=== PATIENT | female | born 1990 | race American Indian/Alaskan Native ===

== ENCOUNTER 2016-05-29 07:36 | Emergency (ER) | payer OTHER ==
[2016-05-29] MEDS ORDERED: PEPCID PO ONE (10:35)
[2016-05-29] MEDS ORDERED: BENADRYL PO ONE (10:35)
[2016-05-29] MEDS ORDERED: DELTASONE PO ONE (10:35)
--- NOTE | 2016-05-29 10:35 | Emergency Department Report ---
HPI - General Chief Complaint: Allergic Reaction Time Seen by Provider: 05/29/16 10:26 - HPI HPI: 25-year-old -[place] female comes in with complaint of facial swelling and hives off and on times a couple of months. Patient questions if she has possible allergic reaction. She has been seen now the allergists with no resolution. She complains of mild swelling to the left lower side of her face. She reports that she's been on prednisone and Benadryl Pepcid. She reports that the prednisone helps with the swelling but a few days after she completes the Medrol Dosepak the swelling comes back. She reports that the allergists recommends for her to have a skin test to see what she is actually allergic to. Patient reports she is not able to afford to $1600 fee for what the tests. She denies any wheezing or shortness of breath no fever no chills no nausea no vomiting. ED Past Medical Hx - Past Medical History Hx Arthritis: (bronchitis) Additional medical history: Fibroids in B breasts. BRONCHITIS - Social History Smoking Status: Current Every Day Smoker Substance Use Type: Alcohol - Medications Home Medications: Home Medications Medication Instructions Recorded Confirmed Last Taken Type Ibuprofen [Motrin 800 MG tab] 800 mg PO Q8H PRN #30 tablet 08/05/14 08/25/14 Unknown Rx Albuterol Sulfate [Ventolin HFA] 2 puff IH Q4H PRN #1 hfa.aer.ad 08/25/14 Unknown Rx Azithromycin [Zithromax Z-TINO] 250 mg PO DAILY #6 tablet 08/25/14 Unknown Rx Ibuprofen [Motrin 600 MG tab] 600 mg PO Q8H PRN #21 tablet 08/25/14 Unknown Rx Ondansetron [Zofran Odt] 4 mg PO Q8HR #12 tab.rapdis 08/25/14 Unknown Rx Prednisone [Prednisone 5 mg (6-Day 5 mg PO .TAPER #1 tab.ds.pk 08/25/14 Unknown Rx Pack, 21 Tabs)] Cephalexin [Keflex] 500 mg PO Q8HR #30 cap 01/10/15 Unknown Rx traMADol [Ultram 50 MG tab] 50 mg PO Q6HR PRN #14 tablet 01/10/15 Unknown Rx Azithromycin [Zithromax Z-TINO] 0 mg PO DAILY #6 tab 07/04/15 Unknown Rx Benzonatate [Tessalon Perles] 100 mg PO Q8HR #30 capsule 07/04/15 Unknown Rx Promethazine [Phenergan TAB] 25 mg PO Q6HR PRN #20 tab 07/04/15 Unknown Rx Promethazine [Phenergan] 25 mg ME Q6HR PRN #10 supp.rect 07/04/15 Unknown Rx oxyCODONE /ACETAMINOPHEN [Percocet 1 - 2 tab PO Q6HR PRN #14 tablet 07/04/15 Unknown Rx 5/325] Famotidine [Pepcid] 20 mg PO BID #20 tablet 03/14/16 Unknown Rx methylPREDNISolone [Medrol] 4 mg PO DAILY #1 tab.ds.pk 03/14/16 Unknown Rx Fexofenadine/Pseudoephedrine 1 each PO QDAY #30 tab.er.24h 05/29/16 Unknown Rx [Cecy-D 24 Hour Tablet] diphenhydrAMINE [Benadryl CAP] 25 mg PO Q6HR PRN #20 capsule 05/29/16 Unknown Rx predniSONE [Deltasone] 20 mg PO QDAY #4 tab 05/29/16 Unknown Rx ED Review of Systems ROS: Stated complaint: ALLERGIC REACTION/FACIAL SWELLING/RT HAND NUMB Other details as noted in HPI Constitutional: denies: chills, fever Eyes: denies: eye pain, eye discharge, vision change ENT: other (facial swelling mainly to the left lower jaw). denies: ear pain, throat pain Respiratory: denies: cough Cardiovascular: as per HPI Physical Exam - Physical Exam Vital Signs: Vital Signs 05/29/16 08:24 Temperature 98.3 F Pulse Rate 84 Respiratory 18 Rate Blood Pressure 125/83 O2 Sat by Pulse 100 Oximetry Physical Exam: GENERAL: Alert and oriented x3, no apparent distress, Normal Gait, atraumatic. HEAD: Head is normocephalic and a-traumatic. EYES: Extra ocular muscles are intact. Pupils are equal, round, and reactive to light and accommodation. EARS: symetrical, atraumatic, non tender, ear canal clear and moderate cerumen, tympanic membrance non inflamed. gross auditory nml bilaterally. NOSE: Nose symetrical, Nontender,Nares appeared normal. MOUTH:Mouth is well hydrated and without lesions. Tonsils swollen, Uvula midline, Tongue not elevated. Mucous membranes are moist. Posterior pharynx clear, no exudate or lesions. Patent airways. FACE: Mild edema just to the left lower jaw nonerythematous no open wounds, nontender to palpate NECK: Supple. Non edematous, No carotid bruits. No lymphadenopathy or thyromegaly. LUNGS: Symetrical with respiration, No wheezing, no rales or crackles, CTAB. HEART: S1, S2 present, regular rate and rhythm without murmur, no rubs, no gallops. EXTREMITIES/MUSCULOSKELETAL: No cyanosis, clubbing, rash, lesions or edema. Full ROM bilaterally. UE/LE Pulses 2+ bilaterally. LE and UE 5+ strength bilaterally PSYCHIATRIC: Mood is congruent with affect, denies suicidal or homicidal ideations. SKIN: Warm and dry, No lesions, No ulceration or induration present ED Course Vital Signs 05/29/16 08:24 Temperature 98.3 F Pulse Rate 84 Respiratory 18 Rate Blood Pressure 125/83 O2 Sat by Pulse 100 Oximetry ED Medical Decision Making - Medical Decision Making Patient's been evaluated by this provider in fast track. We will order patient Pepcid 40 mg Benadryl 25 mg and prednisone 40 mg by mouth to be given now will reevaluate the patient. Discussed with patient that is very important for her to follow up with an inspector welded parts. We'll get her out of discomfort Patient verbalized understanding of the plan. Critical care attestation.: If time is entered above; I have spent that time in minutes in the direct care of this critically ill patient, excluding procedure time. ED Disposition Clinical Impression: Allergic reaction Qualifiers: Encounter type: initial encounter Qualified Code(s): T78.40XA - Allergy, unspecified, initial encounter Disposition: DISCHARGED TO HOME OR SELFCARE Is pt being admited?: No Does the pt Need Aspirin: No Condition: Stable Instructions: Urticaria (ED), Allergies (ED) Additional Instructions: Very important for you to follow up with an inspector welded parts for further evaluation. Medications as prescribed. Prescriptions: diphenhydrAMINE [Benadryl CAP] 25 mg PO Q6HR PRN #20 capsule PRN Reason: Itching Fexofenadine/Pseudoephedrine [Cecy-D 24 Hour Tablet] 1 each PO QDAY #30 tab.er.24h predniSONE [Deltasone] 20 mg PO QDAY #4 tab Referrals: PRIMARY CARE, [Primary Care Provider] - 3-5 Days Forms: Work/School Release Form(ED)
[2016-05-29] MEDS ORDERED: DELTASONE ONE (10:43)
[2016-05-29] MEDS ORDERED: PEPCID ONE (10:44)
[2016-05-29 12:52] VITALS: BP 121/80
== END 2016-05-29 12:52 | disposition home or self-care (01) ==
LOC: ED 07:36
DX: T78.40XA Allergy, unspecified, initial encounter (principal); X58.XXXA Exposure to other specified factors, initial encounter; F17.200 Nicotine dependence, unspecified, uncomplicated; D24.9 Benign neoplasm of unspecified breast; Z88.5 Allergy status to narcotic agent
CPT/HCPCS: 99282; J7512; Q0163

== ENCOUNTER 2016-07-15 20:52 | Emergency (ER) | payer SELFPAY ==
[2016-07-15] MEDS ORDERED: BENADRYL PO ONE (21:13)
[2016-07-15] MEDS ORDERED: PEPCID PO ONE (21:13)
[2016-07-15] MEDS ORDERED: DELTASONE PO NR ×2 (21:30→22:00)
[2016-07-15 21:40] LABS: Bilirubin,Urine NEG (Negative); Blood,Urine MOD (Negative); Ketones,Urine TR mg/dL (Negative); Leukocyte Esterase,Urine NEG (Negative); Mucus,Urine FEW /HPF; Nitrite,Urine NEG (Negative); Protein,Urine <15 mg/dL mg/dL (Negative); Urobilinogen,Urine < 2.0 mg/dL (<2.0); WBC,Urine < 1.0 /HPF (0.0-6.0)
--- NOTE | 2016-07-15 23:17 | Emergency Department Report ---
HPI - General Chief Complaint: Skin Rash Time Seen by Provider: 07/15/16 22:49 - HPI HPI: She is a 25-year-old female who presents to ED complaining of generalized itching and hives that worsened last night. Patient states she has had his aching for the O while patient could not recall specific at time in but states she's had it for a while. Patient states generalized itching and hives have a burning sensation. Patient does not recall coming into contact with any object. Patient denies any allergies. Patient denies fevers/chills/nausea/vomiting/abdominal pain/chest pain/dizziness /shortness of breath/diarrhea ED Past Medical Hx - Past Medical History Previous Medical History?: No Hx Arthritis: (bronchitis) Additional medical history: Fibroids in B breasts. BRONCHITIS - Surgical History Past Surgical History?: No - Social History Smoking Status: Current Every Day Smoker Substance Use Type: Alcohol - Medications Home Medications: Home Medications Medication Instructions Recorded Confirmed Last Taken Type Ibuprofen [Motrin 800 MG tab] 800 mg PO Q8H PRN #30 tablet 08/05/14 08/25/14 Unknown Rx Albuterol Sulfate [Ventolin HFA] 2 puff IH Q4H PRN #1 hfa.aer.ad 08/25/14 Unknown Rx Azithromycin [Zithromax Z-MATT] 250 mg PO DAILY #6 tablet 08/25/14 Unknown Rx Ibuprofen [Motrin 600 MG tab] 600 mg PO Q8H PRN #21 tablet 08/25/14 Unknown Rx Ondansetron [Zofran Odt] 4 mg PO Q8HR #12 tab.rapdis 08/25/14 Unknown Rx Prednisone [Prednisone 5 mg (6-Day 5 mg PO .TAPER #1 tab.ds.pk 08/25/14 Unknown Rx Pack, 21 Tabs)] Cephalexin [Keflex] 500 mg PO Q8HR #30 cap 01/10/15 Unknown Rx traMADol [Ultram 50 MG tab] 50 mg PO Q6HR PRN #14 tablet 01/10/15 Unknown Rx Azithromycin [Zithromax Z-MATT] 0 mg PO DAILY #6 tab 07/04/15 Unknown Rx Benzonatate [Tessalon Perles] 100 mg PO Q8HR #30 capsule 07/04/15 Unknown Rx Promethazine [Phenergan TAB] 25 mg PO Q6HR PRN #20 tab 07/04/15 Unknown Rx Promethazine [Phenergan] 25 mg SD Q6HR PRN #10 supp.rect 07/04/15 Unknown Rx oxyCODONE /ACETAMINOPHEN [Percocet 1 - 2 tab PO Q6HR PRN #14 tablet 07/04/15 Unknown Rx 5/325] Famotidine [Pepcid] 20 mg PO BID #20 tablet 03/14/16 Unknown Rx diphenhydrAMINE [Benadryl CAP] 25 mg PO Q6HR PRN #20 capsule 05/29/16 Unknown Rx predniSONE [Deltasone] 20 mg PO QDAY #4 tab 05/29/16 Unknown Rx Calamine 1 applic TP DAILY #1 bottle 07/15/16 Unknown Rx Fexofenadine/Pseudoephedrine 1 each PO QDAY #30 tab.er.24h 07/15/16 Unknown Rx [Cecy-D 24 Hour Tablet] Triamcinolone 0.1% [Kenalog 0.1% 1 applic TP TID #1 tube 07/15/16 Unknown Rx CREAM] methylPREDNISolone [Medrol Dose 4 mg PO DAILY #1 tab.ds.pk 07/15/16 Unknown Rx Matt] ED Review of Systems ROS: Stated complaint: HIVES OVER BODY/ITCHING Other details as noted in HPI Constitutional: denies: chills, fever Eyes: denies: eye pain, eye discharge, vision change ENT: denies: ear pain, throat pain Respiratory: denies: cough, shortness of breath, wheezing Cardiovascular: denies: chest pain, palpitations Endocrine: no symptoms reported Gastrointestinal: denies: abdominal pain, nausea, diarrhea Genitourinary: denies: urgency, dysuria, discharge Musculoskeletal: denies: back pain, joint swelling, arthralgia Skin: pruritus. denies: rash, lesions, change in color Neurological: denies: headache, weakness, numbness, paresthesias, confusion Psychiatric: denies: anxiety, depression Hematological/Lymphatic: denies: easy bleeding, easy bruising Physical Exam - Physical Exam Vital Signs: Vital Signs 07/15/16 20:57 Temperature 97.6 F Pulse Rate 93 H Respiratory 18 Rate Blood Pressure 121/81 O2 Sat by Pulse 98 Oximetry Physical Exam: GENERAL: Alert and oriented x3, no apparent distress, Normal Gait, atraumatic. HEAD: Head is normocephalic and a-traumatic. MOUTH:Mouth is well hydrated and without lesions. Tonsils nonerythematous or swollen, Uvula midline, Tongue not elevated. Mucous membranes are moist. Posterior pharynx clear, no exudate or lesions. Patent airways. NECK: Supple. Non edematous, No carotid bruits. No lymphadenopathy or thyromegaly. LUNGS: Symetrical with respiration, No wheezing, no rales or crackles, CTAB. HEART: S1, S2 present, regular rate and rhythm without murmur, no rubs, no gallops. ABDOMEN: No organomegaly was noted,Positive bowel sounds, soft, and non- distended. . Nontender to palpation on all Quadrants, NO CVA tenderness. NEUROLOGIC: No focal Deficit, Cranial nerves II through XII are grossly intact. No loss of sensation, PSYCHIATRIC: Mood is congruent with affect, denies suicidal or homicidal ideations. SKIN: Warm and dry, No lesions, No ulceration or induration present. Moderate size generalized erythematous whelps seen on arms and lower back ED Course Vital Signs 07/15/16 20:57 Temperature 97.6 F Pulse Rate 93 H Respiratory 18 Rate Blood Pressure 121/81 O2 Sat by Pulse 98 Oximetry ED Medical Decision Making - Medical Decision Making 25-year-old female presents with contact / allergic dermatitis ED course: Patient received Pepcid, Benadryl, prednisone ED. Discussed the patient to use medication as prescribed for pruritus Discussed the follow-up primary care physician and forest ecologist if symptoms persist discussed to avoid contacts Stable patient is in no acute or restricted distress Vital signs are normalized. Discussed with patient the symptoms worsen or new symptoms arise such as difficulty breathing to return to ED Critical care attestation.: If time is entered above; I have spent that time in minutes in the direct care of this critically ill patient, excluding procedure time. ED Disposition Clinical Impression: Urticaria Contact dermatitis Qualifiers: Contact dermatitis type: unspecified Contact dermatitis trigger: other trigger Qualified Code(s): L25.8 - Unspecified contact dermatitis due to other agents Disposition: DISCHARGED TO HOME OR SELFCARE Is pt being admited?: No Does the pt Need Aspirin: No Condition: Stable Instructions: Urticaria (ED), Contact Dermatitis (ED) Prescriptions: Calamine 1 applic TP DAILY #1 bottle Fexofenadine/Pseudoephedrine [Cecy-D 24 Hour Tablet] 1 each PO QDAY #30 tab.er.24h methylPREDNISolone [Medrol Dose Matt] 4 mg PO DAILY #1 tab.ds.pk Triamcinolone 0.1% [Kenalog 0.1% CREAM] 1 applic TP TID #1 tube Referrals: PRIMARY CARE, [Primary Care Provider] - 3-5 Days ELENA FELDER MD [Referring] - 3-5 Days FLORY MEADOWS MD [Staff Physician] - 3-5 Days JANUSZ FLORES MD [Staff Physician] - 3-5 Days ADALI VAN MD [Referring] - 3-5 Days Forms: Accompanied Note, Work/School Release Form(ED) Time of Disposition: 23:34
[2016-07-15 23:58] VITALS: BP 119/74
== END 2016-07-16 00:04 | disposition home or self-care (01) ==
LOC: ED 20:52
DX: L50.9 Urticaria, unspecified (principal); L25.8 Unspecified contact dermatitis due to other agents; F17.200 Nicotine dependence, unspecified, uncomplicated
CPT/HCPCS: 81001; 81025; 96372; 99283; J2920; J7512

== ENCOUNTER 2016-07-22 05:18 | Inpatient (IN) | payer OTHER ==
[2016-07-22] MEDS ORDERED: S2 RACEPINEPHRINE 2.25% IH ONE ×2 (05:29→05:36)
[2016-07-22] MEDS ORDERED: BENADRYL ONE (05:32)
[2016-07-22] MEDS ORDERED: DECADRON ONE (05:33)
[2016-07-22] MEDS ORDERED: PEPCID IV ONE ×2 (05:33→05:36)
[2016-07-22] MEDS ORDERED: ADRENALIN ONE (05:34)
[2016-07-22] MEDS ORDERED: BENADRYL IV ONE (05:36)
[2016-07-22] MEDS ORDERED: DECADRON 20 MG in NACL 0.9% 50 ML IV ONE ×2 (05:36→05:55)
[2016-07-22] MEDS ORDERED: ADRENALINE P/F SUB-Q ONE (05:36)
--- NOTE | 2016-07-22 05:48 | Emergency Department Report ---
ED Allergic Reaction HPI - General Stated complaint: BHARAT Time Seen by Provider: 07/22/16 05:36 Source: patient, family Mode of arrival: Stretcher Limitations: Physical Limitation - History of Present Illness Initial Comments: 25-year-old female with a past medical history of frequent "allergic reactions" presents to the hospital complains of throat swelling prior to arrival. The last several months patient has had intermittent swelling to her lips, tongue, and foot. Each time it was treated as allergic reaction with steroids and improved. Last episode was approximately 1-2 weeks ago. Today patient has right sided tongue swelling and posterior throat swelling. Patient is short of breath with muffled voice and difficulty speaking. She is unable to swallow spitting her oral secretions into a bag. She has never had posterior throat or airway compromise before. Patient has been seen and evaluated by flour blender helper and no specific cause has been identified. Patient complains of throat pain. No meds taken prior to ED arrival. - Related Data Home Medications Medication Instructions Recorded Confirmed Last Taken No Known Home Medications [No 07/22/16 07/22/16 Unknown Reported Home Medications] Allergies Allergy/AdvReac Type Severity Reaction Status Date / Time codeine Allergy Nausea Verified 05/29/16 08:29 morphine Allergy Hives Verified 05/29/16 08:29 ED Review of Systems ROS: Stated complaint: BHARAT Other details as noted in HPI Comment: All other systems reviewed and negative Other: Constitutional: No fevers chills Eyes: No eye pain visual changes as ENT: as per hpi Neck: Denies pain Respiratory: Denies cough wheezing Cardiovascular: Denies chest pain GI: Denies abdominal pain, nausea, vomiting, diarrhea : Denies dysuria Musculoskeletal: Denies back pain Skin: Denies rash, lesions, erythema Neurologic: Denies headache, numbness, weakness Psychiatric: Denies suicidal ideation, hallucinations ED Past Medical Hx - Past Medical History Hx Arthritis: (bronchitis) Additional medical history: Fibroids in B breasts. BRONCHITIS - Social History Smoking Status: Current Every Day Smoker Substance Use Type: Alcohol - Medications Home Medications: Home Medications Medication Instructions Recorded Confirmed Last Taken Type No Known Home Medications [No 07/22/16 07/22/16 Unknown History Reported Home Medications] ED Physical Exam - Other Other exam information: General: No limitations, patient is alert in moderate distress Head exam: Atraumatic, normocephalic Eyes exam: Normal appearance ENT: Moist mucous membrane, posterior uvula swelling, right sided tongue swelling, muffled voice, spitting secretions into a bag and unable to swallow Neck exam: Normal inspection, full range of motion Respiratory exam: Clear to auscultation bilateral, no wheezes, rales, crackles Cardiovascular: Normal rate and rhythm, normal heart sounds Abdomen: Soft, nondistended, and nontender, with normal bowel sounds, no rebound, or guarding Extremity: Full range of motion normal inspection no deformity Back: Normal Inspection, full range of motion, no tenderness Neurologic: Alert, oriented x3, cranial nerves intact, no motor or sensory deficit Psychiatric: normal affect, normal mood Skin: No rash ED Course Vital Signs 07/22/16 07/22/16 07/22/16 05:27 05:28 05:30 Temperature 98.5 F Temperature [ Intra-Procedure ] Temperature [ Post-Procedure] Temperature [ Pre-Procedure] Pulse Rate 96 H Pulse Rate [ Anterior Bilateral] Pulse Rate [ Intra-Procedure ] Pulse Rate [ Post-Procedure] Pulse Rate [Pre -Procedure] Respiratory 22 Rate Respiratory Rate [Anterior Bilateral] Respiratory Rate [Intra- Procedure] Respiratory Rate [Post- Procedure] Respiratory Rate [Pre- Procedure] Blood Pressure 125/80 Blood Pressure [Intra- Procedure] Blood Pressure 125/80 [Left] Blood Pressure [Post-Procedure ] Blood Pressure [Pre-Procedure] O2 Sat by Pulse 96 97 99 Oximetry O2 Sat by Pulse Oximetry [ Intra-Procedure ] O2 Sat by Pulse Oximetry [Post -Procedure] O2 Sat by Pulse Oximetry [Pre- Procedure] 07/22/16 07/22/16 07/22/16 05:34 05:40 05:45 Temperature Temperature [ Intra-Procedure ] Temperature [ Post-Procedure] Temperature [ Pre-Procedure] Pulse Rate Pulse Rate [ 98 H 101 H Anterior Bilateral] Pulse Rate [ Intra-Procedure ] Pulse Rate [ Post-Procedure] Pulse Rate [Pre -Procedure] Respiratory Rate Respiratory 20 18 Rate [Anterior Bilateral] Respiratory Rate [Intra- Procedure] Respiratory Rate [Post- Procedure] Respiratory Rate [Pre- Procedure] Blood Pressure 129/92 Blood Pressure [Intra- Procedure] Blood Pressure [Left] Blood Pressure [Post-Procedure ] Blood Pressure [Pre-Procedure] O2 Sat by Pulse 100 Oximetry O2 Sat by Pulse Oximetry [ Intra-Procedure ] O2 Sat by Pulse Oximetry [Post -Procedure] O2 Sat by Pulse Oximetry [Pre- Procedure] 07/22/16 07/22/16 07/22/16 05:50 06:00 06:10 Temperature Temperature [ Intra-Procedure ] Temperature [ Post-Procedure] Temperature [ Pre-Procedure] Pulse Rate 98 H Pulse Rate [ Anterior Bilateral] Pulse Rate [ Intra-Procedure ] Pulse Rate [ Post-Procedure] Pulse Rate [Pre -Procedure] Respiratory 22 12 Rate Respiratory Rate [Anterior Bilateral] Respiratory Rate [Intra- Procedure] Respiratory Rate [Post- Procedure] Respiratory Rate [Pre- Procedure] Blood Pressure 139/88 139/88 139/88 Blood Pressure [Intra- Procedure] Blood Pressure [Left] Blood Pressure [Post-Procedure ] Blood Pressure [Pre-Procedure] O2 Sat by Pulse 100 100 100 Oximetry O2 Sat by Pulse Oximetry [ Intra-Procedure ] O2 Sat by Pulse Oximetry [Post -Procedure] O2 Sat by Pulse Oximetry [Pre- Procedure] 07/22/16 07/22/16 07/22/16 06:15 06:18 06:20 Temperature 98.5 F Temperature [ Intra-Procedure ] Temperature [ Post-Procedure] Temperature [ 98.6 F Pre-Procedure] Pulse Rate 103 H 103 H Pulse Rate [ Anterior Bilateral] Pulse Rate [ Intra-Procedure ] Pulse Rate [ Post-Procedure] Pulse Rate [Pre 97 H -Procedure] Respiratory 20 25 H Rate Respiratory Rate [Anterior Bilateral] Respiratory Rate [Intra- Procedure] Respiratory Rate [Post- Procedure] Respiratory 20 Rate [Pre- Procedure] Blood Pressure 139/88 Blood Pressure [Intra- Procedure] Blood Pressure 139/52 [Left] Blood Pressure [Post-Procedure ] Blood Pressure 139/52 [Pre-Procedure] O2 Sat by Pulse 100 100 Oximetry O2 Sat by Pulse Oximetry [ Intra-Procedure ] O2 Sat by Pulse Oximetry [Post -Procedure] O2 Sat by Pulse 100 Oximetry [Pre- Procedure] 07/22/16 07/22/16 07/22/16 06:25 06:30 06:40 Temperature Temperature [ 98.6 F Intra-Procedure ] Temperature [ 98.6 F Post-Procedure] Temperature [ Pre-Procedure] Pulse Rate 114 H 116 H Pulse Rate [ Anterior Bilateral] Pulse Rate [ 97 H Intra-Procedure ] Pulse Rate [ 100 H Post-Procedure] Pulse Rate [Pre -Procedure] Respiratory 21 14 Rate Respiratory Rate [Anterior Bilateral] Respiratory 20 Rate [Intra- Procedure] Respiratory 22 Rate [Post- Procedure] Respiratory Rate [Pre- Procedure] Blood Pressure 183/111 145/88 Blood Pressure 131/78 [Intra- Procedure] Blood Pressure [Left] Blood Pressure 131/78 [Post-Procedure ] Blood Pressure [Pre-Procedure] O2 Sat by Pulse 99 97 Oximetry O2 Sat by Pulse 98 Oximetry [ Intra-Procedure ] O2 Sat by Pulse 98 Oximetry [Post -Procedure] O2 Sat by Pulse Oximetry [Pre- Procedure] 07/22/16 07/22/16 07/22/16 06:50 07:00 07:10 Temperature Temperature [ Intra-Procedure ] Temperature [ Post-Procedure] Temperature [ Pre-Procedure] Pulse Rate 112 H 107 H 110 H Pulse Rate [ Anterior Bilateral] Pulse Rate [ Intra-Procedure ] Pulse Rate [ Post-Procedure] Pulse Rate [Pre -Procedure] Respiratory 14 14 18 Rate Respiratory Rate [Anterior Bilateral] Respiratory Rate [Intra- Procedure] Respiratory Rate [Post- Procedure] Respiratory Rate [Pre- Procedure] Blood Pressure 145/82 134/77 127/84 Blood Pressure [Intra- Procedure] Blood Pressure 127/84 [Left] Blood Pressure [Post-Procedure ] Blood Pressure [Pre-Procedure] O2 Sat by Pulse 98 98 Oximetry O2 Sat by Pulse Oximetry [ Intra-Procedure ] O2 Sat by Pulse Oximetry [Post -Procedure] O2 Sat by Pulse Oximetry [Pre- Procedure] 07/22/16 07/22/16 07/22/16 07:20 07:30 07:34 Temperature Temperature [ Intra-Procedure ] Temperature [ Post-Procedure] Temperature [ Pre-Procedure] Pulse Rate 119 H 112 H 100 H Pulse Rate [ Anterior Bilateral] Pulse Rate [ Intra-Procedure ] Pulse Rate [ Post-Procedure] Pulse Rate [Pre -Procedure] Respiratory 20 16 Rate Respiratory Rate [Anterior Bilateral] Respiratory Rate [Intra- Procedure] Respiratory Rate [Post- Procedure] Respiratory Rate [Pre- Procedure] Blood Pressure 152/107 168/95 Blood Pressure [Intra- Procedure] Blood Pressure [Left] Blood Pressure [Post-Procedure ] Blood Pressure [Pre-Procedure] O2 Sat by Pulse 95 94 95 Oximetry O2 Sat by Pulse Oximetry [ Intra-Procedure ] O2 Sat by Pulse Oximetry [Post -Procedure] O2 Sat by Pulse Oximetry [Pre- Procedure] 07/22/16 07/22/16 07/22/16 07:40 07:51 08:00 Temperature Temperature [ Intra-Procedure ] Temperature [ Post-Procedure] Temperature [ Pre-Procedure] Pulse Rate 104 H 100 H 97 H Pulse Rate [ Anterior Bilateral] Pulse Rate [ Intra-Procedure ] Pulse Rate [ Post-Procedure] Pulse Rate [Pre -Procedure] Respiratory 18 18 18 Rate Respiratory Rate [Anterior Bilateral] Respiratory Rate [Intra- Procedure] Respiratory Rate [Post- Procedure] Respiratory Rate [Pre- Procedure] Blood Pressure 168/95 155/89 130/85 Blood Pressure [Intra- Procedure] Blood Pressure [Left] Blood Pressure [Post-Procedure ] Blood Pressure [Pre-Procedure] O2 Sat by Pulse 100 99 Oximetry O2 Sat by Pulse Oximetry [ Intra-Procedure ] O2 Sat by Pulse Oximetry [Post -Procedure] O2 Sat by Pulse Oximetry [Pre- Procedure] 07/22/16 07/22/16 07/22/16 08:10 08:20 08:30 Temperature Temperature [ Intra-Procedure ] Temperature [ Post-Procedure] Temperature [ Pre-Procedure] Pulse Rate 96 H 93 H 89 Pulse Rate [ Anterior Bilateral] Pulse Rate [ Intra-Procedure ] Pulse Rate [ Post-Procedure] Pulse Rate [Pre -Procedure] Respiratory 18 18 18 Rate Respiratory Rate [Anterior Bilateral] Respiratory Rate [Intra- Procedure] Respiratory Rate [Post- Procedure] Respiratory Rate [Pre- Procedure] Blood Pressure 123/83 122/80 119/76 Blood Pressure [Intra- Procedure] Blood Pressure [Left] Blood Pressure [Post-Procedure ] Blood Pressure [Pre-Procedure] O2 Sat by Pulse 96 Oximetry O2 Sat by Pulse Oximetry [ Intra-Procedure ] O2 Sat by Pulse Oximetry [Post -Procedure] O2 Sat by Pulse Oximetry [Pre- Procedure] 07/22/16 07/22/16 07/22/16 08:40 08:50 09:00 Temperature Temperature [ Intra-Procedure ] Temperature [ Post-Procedure] Temperature [ Pre-Procedure] Pulse Rate 84 83 81 Pulse Rate [ Anterior Bilateral] Pulse Rate [ Intra-Procedure ] Pulse Rate [ Post-Procedure] Pulse Rate [Pre -Procedure] Respiratory 18 18 18 Rate Respiratory Rate [Anterior Bilateral] Respiratory Rate [Intra- Procedure] Respiratory Rate [Post- Procedure] Respiratory Rate [Pre- Procedure] Blood Pressure 120/74 117/72 114/70 Blood Pressure [Intra- Procedure] Blood Pressure [Left] Blood Pressure [Post-Procedure ] Blood Pressure [Pre-Procedure] O2 Sat by Pulse 95 Oximetry O2 Sat by Pulse Oximetry [ Intra-Procedure ] O2 Sat by Pulse Oximetry [Post -Procedure] O2 Sat by Pulse Oximetry [Pre- Procedure] 07/22/16 07/22/16 07/22/16 09:10 09:20 09:30 Temperature Temperature [ Intra-Procedure ] Temperature [ Post-Procedure] Temperature [ Pre-Procedure] Pulse Rate 77 78 77 Pulse Rate [ Anterior Bilateral] Pulse Rate [ Intra-Procedure ] Pulse Rate [ Post-Procedure] Pulse Rate [Pre -Procedure] Respiratory 18 18 18 Rate Respiratory Rate [Anterior Bilateral] Respiratory Rate [Intra- Procedure] Respiratory Rate [Post- Procedure] Respiratory Rate [Pre- Procedure] Blood Pressure 115/73 120/78 118/75 Blood Pressure [Intra- Procedure] Blood Pressure [Left] Blood Pressure [Post-Procedure ] Blood Pressure [Pre-Procedure] O2 Sat by Pulse Oximetry O2 Sat by Pulse Oximetry [ Intra-Procedure ] O2 Sat by Pulse Oximetry [Post -Procedure] O2 Sat by Pulse Oximetry [Pre- Procedure] 07/22/16 07/22/16 07/22/16 09:45 10:00 10:15 Temperature Temperature [ Intra-Procedure ] Temperature [ Post-Procedure] Temperature [ Pre-Procedure] Pulse Rate 73 68 71 Pulse Rate [ Anterior Bilateral] Pulse Rate [ Intra-Procedure ] Pulse Rate [ Post-Procedure] Pulse Rate [Pre -Procedure] Respiratory 18 18 18 Rate Respiratory Rate [Anterior Bilateral] Respiratory Rate [Intra- Procedure] Respiratory Rate [Post- Procedure] Respiratory Rate [Pre- Procedure] Blood Pressure 121/77 120/75 122/79 Blood Pressure [Intra- Procedure] Blood Pressure [Left] Blood Pressure [Post-Procedure ] Blood Pressure [Pre-Procedure] O2 Sat by Pulse 96 98 Oximetry O2 Sat by Pulse Oximetry [ Intra-Procedure ] O2 Sat by Pulse Oximetry [Post -Procedure] O2 Sat by Pulse Oximetry [Pre- Procedure] 07/22/16 07/22/16 07/22/16 10:30 10:40 10:45 Temperature Temperature [ Intra-Procedure ] Temperature [ Post-Procedure] Temperature [ Pre-Procedure] Pulse Rate 65 80 60 Pulse Rate [ Anterior Bilateral] Pulse Rate [ Intra-Procedure ] Pulse Rate [ Post-Procedure] Pulse Rate [Pre -Procedure] Respiratory 18 18 Rate Respiratory Rate [Anterior Bilateral] Respiratory Rate [Intra- Procedure] Respiratory Rate [Post- Procedure] Respiratory Rate [Pre- Procedure] Blood Pressure 120/79 125/74 Blood Pressure [Intra- Procedure] Blood Pressure [Left] Blood Pressure [Post-Procedure ] Blood Pressure [Pre-Procedure] O2 Sat by Pulse 96 97 Oximetry O2 Sat by Pulse Oximetry [ Intra-Procedure ] O2 Sat by Pulse Oximetry [Post -Procedure] O2 Sat by Pulse Oximetry [Pre- Procedure] 07/22/16 07/22/16 07/22/16 11:00 11:15 11:30 Temperature Temperature [ Intra-Procedure ] Temperature [ Post-Procedure] Temperature [ Pre-Procedure] Pulse Rate 64 61 61 Pulse Rate [ Anterior Bilateral] Pulse Rate [ Intra-Procedure ] Pulse Rate [ Post-Procedure] Pulse Rate [Pre -Procedure] Respiratory 18 18 18 Rate Respiratory Rate [Anterior Bilateral] Respiratory Rate [Intra- Procedure] Respiratory Rate [Post- Procedure] Respiratory Rate [Pre- Procedure] Blood Pressure 120/80 119/76 119/76 Blood Pressure [Intra- Procedure] Blood Pressure [Left] Blood Pressure [Post-Procedure ] Blood Pressure [Pre-Procedure] O2 Sat by Pulse 100 97 97 Oximetry O2 Sat by Pulse Oximetry [ Intra-Procedure ] O2 Sat by Pulse Oximetry [Post -Procedure] O2 Sat by Pulse Oximetry [Pre- Procedure] 07/22/16 07/22/16 07/22/16 11:45 12:00 12:15 Temperature Temperature [ Intra-Procedure ] Temperature [ Post-Procedure] Temperature [ Pre-Procedure] Pulse Rate 64 63 60 Pulse Rate [ Anterior Bilateral] Pulse Rate [ Intra-Procedure ] Pulse Rate [ Post-Procedure] Pulse Rate [Pre -Procedure] Respiratory 18 18 17 Rate Respiratory Rate [Anterior Bilateral] Respiratory Rate [Intra- Procedure] Respiratory Rate [Post- Procedure] Respiratory Rate [Pre- Procedure] Blood Pressure 115/77 119/82 119/76 Blood Pressure [Intra- Procedure] Blood Pressure [Left] Blood Pressure [Post-Procedure ] Blood Pressure [Pre-Procedure] O2 Sat by Pulse 97 99 98 Oximetry O2 Sat by Pulse Oximetry [ Intra-Procedure ] O2 Sat by Pulse Oximetry [Post -Procedure] O2 Sat by Pulse Oximetry [Pre- Procedure] 07/22/16 07/22/16 07/22/16 12:30 12:45 13:00 Temperature Temperature [ Intra-Procedure ] Temperature [ Post-Procedure] Temperature [ Pre-Procedure] Pulse Rate 61 60 62 Pulse Rate [ Anterior Bilateral] Pulse Rate [ Intra-Procedure ] Pulse Rate [ Post-Procedure] Pulse Rate [Pre -Procedure] Respiratory 17 17 18 Rate Respiratory Rate [Anterior Bilateral] Respiratory Rate [Intra- Procedure] Respiratory Rate [Post- Procedure] Respiratory Rate [Pre- Procedure] Blood Pressure 117/80 117/78 124/79 Blood Pressure [Intra- Procedure] Blood Pressure [Left] Blood Pressure [Post-Procedure ] Blood Pressure [Pre-Procedure] O2 Sat by Pulse 98 98 98 Oximetry O2 Sat by Pulse Oximetry [ Intra-Procedure ] O2 Sat by Pulse Oximetry [Post -Procedure] O2 Sat by Pulse Oximetry [Pre- Procedure] 07/22/16 07/22/16 07/22/16 13:15 13:30 13:45 Temperature Temperature [ Intra-Procedure ] Temperature [ Post-Procedure] Temperature [ Pre-Procedure] Pulse Rate 59 L 62 58 L Pulse Rate [ Anterior Bilateral] Pulse Rate [ Intra-Procedure ] Pulse Rate [ Post-Procedure] Pulse Rate [Pre -Procedure] Respiratory 18 18 18 Rate Respiratory Rate [Anterior Bilateral] Respiratory Rate [Intra- Procedure] Respiratory Rate [Post- Procedure] Respiratory Rate [Pre- Procedure] Blood Pressure 121/75 122/82 119/80 Blood Pressure [Intra- Procedure] Blood Pressure [Left] Blood Pressure [Post-Procedure ] Blood Pressure [Pre-Procedure] O2 Sat by Pulse 97 94 Oximetry O2 Sat by Pulse Oximetry [ Intra-Procedure ] O2 Sat by Pulse Oximetry [Post -Procedure] O2 Sat by Pulse Oximetry [Pre- Procedure] 07/22/16 07/22/16 07/22/16 14:00 14:15 14:30 Temperature Temperature [ Intra-Procedure ] Temperature [ Post-Procedure] Temperature [ Pre-Procedure] Pulse Rate 65 53 L 52 L Pulse Rate [ Anterior Bilateral] Pulse Rate [ Intra-Procedure ] Pulse Rate [ Post-Procedure] Pulse Rate [Pre -Procedure] Respiratory 18 18 18 Rate Respiratory Rate [Anterior Bilateral] Respiratory Rate [Intra- Procedure] Respiratory Rate [Post- Procedure] Respiratory Rate [Pre- Procedure] Blood Pressure 127/93 117/75 118/74 Blood Pressure [Intra- Procedure] Blood Pressure [Left] Blood Pressure [Post-Procedure ] Blood Pressure [Pre-Procedure] O2 Sat by Pulse 98 96 97 Oximetry O2 Sat by Pulse Oximetry [ Intra-Procedure ] O2 Sat by Pulse Oximetry [Post -Procedure] O2 Sat by Pulse Oximetry [Pre- Procedure] 07/22/16 07/22/16 07/22/16 14:45 15:00 15:15 Temperature Temperature [ Intra-Procedure ] Temperature [ Post-Procedure] Temperature [ Pre-Procedure] Pulse Rate 53 L 52 L 51 L Pulse Rate [ Anterior Bilateral] Pulse Rate [ Intra-Procedure ] Pulse Rate [ Post-Procedure] Pulse Rate [Pre -Procedure] Respiratory 18 18 18 Rate Respiratory Rate [Anterior Bilateral] Respiratory Rate [Intra- Procedure] Respiratory Rate [Post- Procedure] Respiratory Rate [Pre- Procedure] Blood Pressure 120/74 120/78 121/78 Blood Pressure [Intra- Procedure] Blood Pressure [Left] Blood Pressure [Post-Procedure ] Blood Pressure [Pre-Procedure] O2 Sat by Pulse 96 96 99 Oximetry O2 Sat by Pulse Oximetry [ Intra-Procedure ] O2 Sat by Pulse Oximetry [Post -Procedure] O2 Sat by Pulse Oximetry [Pre- Procedure] 07/22/16 07/22/16 07/22/16 15:30 15:37 15:45 Temperature Temperature [ Intra-Procedure ] Temperature [ Post-Procedure] Temperature [ Pre-Procedure] Pulse Rate 52 L 85 52 L Pulse Rate [ Anterior Bilateral] Pulse Rate [ Intra-Procedure ] Pulse Rate [ Post-Procedure] Pulse Rate [Pre -Procedure] Respiratory 18 18 Rate Respiratory Rate [Anterior Bilateral] Respiratory Rate [Intra- Procedure] Respiratory Rate [Post- Procedure] Respiratory Rate [Pre- Procedure] Blood Pressure 118/77 121/78 Blood Pressure [Intra- Procedure] Blood Pressure [Left] Blood Pressure [Post-Procedure ] Blood Pressure [Pre-Procedure] O2 Sat by Pulse 98 96 96 Oximetry O2 Sat by Pulse Oximetry [ Intra-Procedure ] O2 Sat by Pulse Oximetry [Post -Procedure] O2 Sat by Pulse Oximetry [Pre- Procedure] 07/22/16 07/22/16 07/22/16 16:00 16:15 16:30 Temperature Temperature [ Intra-Procedure ] Temperature [ Post-Procedure] Temperature [ Pre-Procedure] Pulse Rate 51 L 52 L 52 L Pulse Rate [ Anterior Bilateral] Pulse Rate [ Intra-Procedure ] Pulse Rate [ Post-Procedure] Pulse Rate [Pre -Procedure] Respiratory 18 18 18 Rate Respiratory Rate [Anterior Bilateral] Respiratory Rate [Intra- Procedure] Respiratory Rate [Post- Procedure] Respiratory Rate [Pre- Procedure] Blood Pressure 119/80 122/78 121/80 Blood Pressure [Intra- Procedure] Blood Pressure [Left] Blood Pressure [Post-Procedure ] Blood Pressure [Pre-Procedure] O2 Sat by Pulse 98 97 97 Oximetry O2 Sat by Pulse Oximetry [ Intra-Procedure ] O2 Sat by Pulse Oximetry [Post -Procedure] O2 Sat by Pulse Oximetry [Pre- Procedure] 07/22/16 07/22/16 07/22/16 16:45 17:00 17:15 Temperature Temperature [ Intra-Procedure ] Temperature [ Post-Procedure] Temperature [ Pre-Procedure] Pulse Rate 51 L 51 L 50 L Pulse Rate [ Anterior Bilateral] Pulse Rate [ Intra-Procedure ] Pulse Rate [ Post-Procedure] Pulse Rate [Pre -Procedure] Respiratory 18 18 18 Rate Respiratory Rate [Anterior Bilateral] Respiratory Rate [Intra- Procedure] Respiratory Rate [Post- Procedure] Respiratory Rate [Pre- Procedure] Blood Pressure 122/79 121/81 123/80 Blood Pressure [Intra- Procedure] Blood Pressure [Left] Blood Pressure [Post-Procedure ] Blood Pressure [Pre-Procedure] O2 Sat by Pulse 97 98 97 Oximetry O2 Sat by Pulse Oximetry [ Intra-Procedure ] O2 Sat by Pulse Oximetry [Post -Procedure] O2 Sat by Pulse Oximetry [Pre- Procedure] 07/22/16 07/22/16 07/22/16 17:30 17:45 18:01 Temperature Temperature [ Intra-Procedure ] Temperature [ Post-Procedure] Temperature [ Pre-Procedure] Pulse Rate 50 L 50 L 95 H Pulse Rate [ Anterior Bilateral] Pulse Rate [ Intra-Procedure ] Pulse Rate [ Post-Procedure] Pulse Rate [Pre -Procedure] Respiratory 18 18 21 Rate Respiratory Rate [Anterior Bilateral] Respiratory Rate [Intra- Procedure] Respiratory Rate [Post- Procedure] Respiratory Rate [Pre- Procedure] Blood Pressure 123/81 122/80 146/69 Blood Pressure [Intra- Procedure] Blood Pressure [Left] Blood Pressure [Post-Procedure ] Blood Pressure [Pre-Procedure] O2 Sat by Pulse 97 98 97 Oximetry O2 Sat by Pulse Oximetry [ Intra-Procedure ] O2 Sat by Pulse Oximetry [Post -Procedure] O2 Sat by Pulse Oximetry [Pre- Procedure] 07/22/16 07/22/16 07/22/16 18:15 18:30 18:45 Temperature Temperature [ Intra-Procedure ] Temperature [ Post-Procedure] Temperature [ Pre-Procedure] Pulse Rate 71 100 H 73 Pulse Rate [ Anterior Bilateral] Pulse Rate [ Intra-Procedure ] Pulse Rate [ Post-Procedure] Pulse Rate [Pre -Procedure] Respiratory 18 13 18 Rate Respiratory Rate [Anterior Bilateral] Respiratory Rate [Intra- Procedure] Respiratory Rate [Post- Procedure] Respiratory Rate [Pre- Procedure] Blood Pressure 122/81 145/97 125/77 Blood Pressure [Intra- Procedure] Blood Pressure [Left] Blood Pressure [Post-Procedure ] Blood Pressure [Pre-Procedure] O2 Sat by Pulse Oximetry O2 Sat by Pulse Oximetry [ Intra-Procedure ] O2 Sat by Pulse Oximetry [Post -Procedure] O2 Sat by Pulse Oximetry [Pre- Procedure] - Reevaluation(s) Reevaluation #1: 07/22/16 05:48 Racemic epi initiated, Solu-Medrol 125, Decadron 10 mg, Pepcid 20 mg, Benadryl 50 mg, and subcutaneous epinephrine 0.3 mg initiated ED Medical Decision Making - Lab Data Result diagrams: 07/25/16 04:51 07/25/16 04:51 - Medical Decision Making Treatment initiated upon patient arrival. Basic labs ordered in anticipation of admission to the hospital. Case discussed with Dr. Molina oncoming physician who will assume further care and treatment. - Differential Diagnosis allergic reaction, angioedema Critical Care Time: No Critical care attestation.: If time is entered above; I have spent that time in minutes in the direct care of this critically ill patient, excluding procedure time. ED Disposition Clinical Impression: Allergic reaction, Swollen throat, Tongue swelling Anaphylactic reaction Qualifiers: Encounter type: initial encounter Qualified Code(s): T78.2XXA - Anaphylactic shock, unspecified, initial encounter Angioedema Qualifiers: Encounter type: initial encounter Qualified Code(s): T78.3XXA - Angioneurotic edema, initial encounter Disposition: OP ADMITTED IP TO THIS HOSP Is pt being admited?: Yes Condition: Stable
[2016-07-22] MEDS ORDERED: DECADRON IV ONE (05:56)
[2016-07-22] MEDS ORDERED: DIPRIVAN 10 MG/ML 1,000 MG/100 ML BOTTLE IV ONE ×3 (06:05→17:27)
[2016-07-22] MEDS ORDERED: QUELICIN ONE (06:25)
[2016-07-22] MEDS ORDERED: VERSED IV ONE (06:25)
[2016-07-22] MEDS ORDERED: ZEMURON IV ONE ×3 (06:25→07:40)
[2016-07-22] MEDS: DIPRIVAN 10 MG/ML 1,000 MG/100 ML BOTTLE IV SCH ×2 (06:30→19:30)
[2016-07-22 06:37] LABS: Basophils % (Auto) 0.2 % (0.0-1.8); Eosinophils % (Auto) 0.4 % (0.0-4.3); Hematocrit 41.3 % (30.3-42.9); Hemoglobin 13.8 gm/dl (10.1-14.3); Mean Corpuscular HGB Conc 34 % (30-34); Mean Corpuscular Hemoglobin 30 pg (28-32); Mean Corpuscular Volume 89 fl (79-97); Platelet Count 363 K/mm3 (140-440); Red Blood Count 4.65 M/mm3 (3.65-5.03); Red Cell Distribution Width 13.3 % (13.2-15.2); White Blood Count 10.8 K/mm3 (4.5-11.0)
--- NOTE | 2016-07-22 06:47 | Emergency Department Report ---
ED General Adult HPI - General Chief complaint: Allergic Reaction Stated complaint: BHARAT Time Seen by Provider: 07/22/16 05:36 Source: patient, family Mode of arrival: Stretcher Limitations: Physical Limitation - History of Present Illness Initial comments: This is a patient that was initially seen by Dr. Rider for angioedema. Please refer to her note. Patient had been treated medically prior to my arrival. On interviewing the patient she states that she has had allergic reactions before but it never affected her throat. She states that the medicine has not affected the swelling in her throat and indeed she thinks it is getting worse. At the time of my exam she is not speaking normally. She has a slightly muffled voice but no romel stridor. She states that she cannot swallow. However she is not having apparent problems with her secretions and there is no audible stridor. Anesthesia had been summoned by Dr. Rider. They requested a decision are he elective intubation. I decided to proceed. The procedure was explained to the patient in detail and discussing the risks and benefits. The patient was willing to proceed. Anesthesia was notified. Preparation for intubation ensued. -: hour(s) Location: mouth, neck Severity scale (0 -10): 0 Consistency: constant Improves with: none Associated Symptoms: denies other symptoms Treatments Prior to Arrival: none - Related Data Previous Rx's Medication Instructions Recorded Last Taken Type Ibuprofen [Motrin 800 MG tab] 800 mg PO Q8H PRN #30 tablet 08/05/14 Unknown Rx Albuterol Sulfate [Ventolin HFA] 2 puff IH Q4H PRN #1 hfa.aer.ad 08/25/14 Unknown Rx Azithromycin [Zithromax Z-MATT] 250 mg PO DAILY #6 tablet 08/25/14 Unknown Rx Ibuprofen [Motrin 600 MG tab] 600 mg PO Q8H PRN #21 tablet 08/25/14 Unknown Rx Ondansetron [Zofran Odt] 4 mg PO Q8HR #12 tab.rapdis 08/25/14 Unknown Rx Prednisone [Prednisone 5 mg (6-Day 5 mg PO .TAPER #1 tab.ds.pk 08/25/14 Unknown Rx Pack, 21 Tabs)] Cephalexin [Keflex] 500 mg PO Q8HR #30 cap 01/10/15 Unknown Rx traMADol [Ultram 50 MG tab] 50 mg PO Q6HR PRN #14 tablet 01/10/15 Unknown Rx Azithromycin [Zithromax Z-MATT] 0 mg PO DAILY #6 tab 07/04/15 Unknown Rx Benzonatate [Tessalon Perles] 100 mg PO Q8HR #30 capsule 07/04/15 Unknown Rx Promethazine [Phenergan TAB] 25 mg PO Q6HR PRN #20 tab 07/04/15 Unknown Rx Promethazine [Phenergan] 25 mg CO Q6HR PRN #10 supp.rect 07/04/15 Unknown Rx oxyCODONE /ACETAMINOPHEN [Percocet 1 - 2 tab PO Q6HR PRN #14 tablet 07/04/15 Unknown Rx 5/325] Famotidine [Pepcid] 20 mg PO BID #20 tablet 03/14/16 Unknown Rx diphenhydrAMINE [Benadryl CAP] 25 mg PO Q6HR PRN #20 capsule 05/29/16 Unknown Rx predniSONE [Deltasone] 20 mg PO QDAY #4 tab 05/29/16 Unknown Rx Calamine 1 applic TP DAILY #1 bottle 07/15/16 Unknown Rx Fexofenadine/Pseudoephedrine 1 each PO QDAY #30 tab.er.24h 07/15/16 Unknown Rx [Cecy-D 24 Hour Tablet] Triamcinolone 0.1% [Kenalog 0.1% 1 applic TP TID #1 tube 07/15/16 Unknown Rx CREAM] methylPREDNISolone [Medrol Dose 4 mg PO DAILY #1 tab.ds.pk 07/15/16 Unknown Rx Matt] Allergies Allergy/AdvReac Type Severity Reaction Status Date / Time codeine Allergy Nausea Verified 05/29/16 08:29 morphine Allergy Hives Verified 05/29/16 08:29 ED Review of Systems ROS: Stated complaint: BHARAT Other details as noted in HPI Constitutional: denies: chills, fever Eyes: denies: eye pain, eye discharge, vision change ENT: as per HPI, other (dysphagia). denies: ear pain, throat pain Respiratory: shortness of breath. denies: cough, wheezing Cardiovascular: denies: chest pain, palpitations Endocrine: no symptoms reported Gastrointestinal: denies: abdominal pain, nausea, diarrhea Genitourinary: denies: urgency, dysuria, discharge Musculoskeletal: denies: back pain, joint swelling, arthralgia Skin: denies: rash, lesions Neurological: denies: headache, weakness, paresthesias Psychiatric: denies: anxiety, depression Hematological/Lymphatic: denies: easy bleeding, easy bruising ED Past Medical Hx - Past Medical History Hx Arthritis: (bronchitis) Additional medical history: Fibroids in B breasts. BRONCHITIS - Surgical History Past Surgical History?: No - Social History Smoking Status: Current Every Day Smoker Substance Use Type: Alcohol - Medications Home Medications: Home Medications Medication Instructions Recorded Confirmed Last Taken Type Ibuprofen [Motrin 800 MG tab] 800 mg PO Q8H PRN #30 tablet 08/05/14 08/25/14 Unknown Rx Albuterol Sulfate [Ventolin HFA] 2 puff IH Q4H PRN #1 hfa.aer.ad 08/25/14 Unknown Rx Azithromycin [Zithromax Z-MATT] 250 mg PO DAILY #6 tablet 08/25/14 Unknown Rx Ibuprofen [Motrin 600 MG tab] 600 mg PO Q8H PRN #21 tablet 08/25/14 Unknown Rx Ondansetron [Zofran Odt] 4 mg PO Q8HR #12 tab.rapdis 08/25/14 Unknown Rx Prednisone [Prednisone 5 mg (6-Day 5 mg PO .TAPER #1 tab.ds.pk 08/25/14 Unknown Rx Pack, 21 Tabs)] Cephalexin [Keflex] 500 mg PO Q8HR #30 cap 01/10/15 Unknown Rx traMADol [Ultram 50 MG tab] 50 mg PO Q6HR PRN #14 tablet 01/10/15 Unknown Rx Azithromycin [Zithromax Z-MATT] 0 mg PO DAILY #6 tab 07/04/15 Unknown Rx Benzonatate [Tessalon Perles] 100 mg PO Q8HR #30 capsule 07/04/15 Unknown Rx Promethazine [Phenergan TAB] 25 mg PO Q6HR PRN #20 tab 07/04/15 Unknown Rx Promethazine [Phenergan] 25 mg CO Q6HR PRN #10 supp.rect 07/04/15 Unknown Rx oxyCODONE /ACETAMINOPHEN [Percocet 1 - 2 tab PO Q6HR PRN #14 tablet 07/04/15 Unknown Rx 5/325] Famotidine [Pepcid] 20 mg PO BID #20 tablet 03/14/16 Unknown Rx diphenhydrAMINE [Benadryl CAP] 25 mg PO Q6HR PRN #20 capsule 05/29/16 Unknown Rx predniSONE [Deltasone] 20 mg PO QDAY #4 tab 05/29/16 Unknown Rx Calamine 1 applic TP DAILY #1 bottle 07/15/16 Unknown Rx Fexofenadine/Pseudoephedrine 1 each PO QDAY #30 tab.er.24h 07/15/16 Unknown Rx [Cecy-D 24 Hour Tablet] Triamcinolone 0.1% [Kenalog 0.1% 1 applic TP TID #1 tube 07/15/16 Unknown Rx CREAM] methylPREDNISolone [Medrol Dose 4 mg PO DAILY #1 tab.ds.pk 07/15/16 Unknown Rx Matt] ED Physical Exam - General Limitations: Physical Limitation General appearance: alert, anxious - Head Head exam: Present: atraumatic, normocephalic - Eye Eye exam: Present: normal appearance, PERRL, EOMI - ENT ENT exam: Present: other (there is significant swelling of the soft palate and uvula area there is asymmetric tongue swelling somewhat worse on the right area the patient is able to handle secretions early) - Neck Neck exam: Present: other (moderate angioedema of the neck is noted worse on the right there is no stridor) - Respiratory Respiratory exam: Present: normal lung sounds bilaterally. Absent: respiratory distress - Cardiovascular Cardiovascular Exam: Present: regular rate, normal rhythm. Absent: systolic murmur, diastolic murmur, rubs, gallop - GI/Abdominal GI/Abdominal exam: Present: soft, normal bowel sounds. Absent: distended, tenderness, guarding, rebound, rigid - Extremities Exam Extremities exam: Present: normal inspection - Neurological Exam Neurological exam: Present: alert, oriented X3, CN II-XII intact. Absent: motor sensory deficit - Psychiatric Psychiatric exam: Present: normal affect, anxious - Skin Skin exam: Present: warm, dry, intact, normal color. Absent: rash ED Course Vital Signs 07/22/16 07/22/16 07/22/16 05:27 05:34 05:45 Temperature 98.5 F Temperature [ Intra-Procedure ] Temperature [ Post-Procedure] Temperature [ Pre-Procedure] Pulse Rate 96 H Pulse Rate [ 98 H 101 H Anterior Bilateral] Pulse Rate [ Intra-Procedure ] Pulse Rate [ Post-Procedure] Pulse Rate [Pre -Procedure] Respiratory 22 Rate Respiratory 20 18 Rate [Anterior Bilateral] Respiratory Rate [Intra- Procedure] Respiratory Rate [Post- Procedure] Respiratory Rate [Pre- Procedure] Blood Pressure 125/80 Blood Pressure [Intra- Procedure] Blood Pressure 125/80 [Left] Blood Pressure [Post-Procedure ] Blood Pressure [Pre-Procedure] O2 Sat by Pulse 96 Oximetry O2 Sat by Pulse Oximetry [ Intra-Procedure ] O2 Sat by Pulse Oximetry [Post -Procedure] O2 Sat by Pulse Oximetry [Pre- Procedure] 07/22/16 07/22/16 07/22/16 06:00 06:15 06:18 Temperature 98.5 F Temperature [ Intra-Procedure ] Temperature [ Post-Procedure] Temperature [ 98.6 F Pre-Procedure] Pulse Rate 103 H Pulse Rate [ Anterior Bilateral] Pulse Rate [ Intra-Procedure ] Pulse Rate [ Post-Procedure] Pulse Rate [Pre 97 H -Procedure] Respiratory 22 20 Rate Respiratory Rate [Anterior Bilateral] Respiratory Rate [Intra- Procedure] Respiratory Rate [Post- Procedure] Respiratory 20 Rate [Pre- Procedure] Blood Pressure Blood Pressure [Intra- Procedure] Blood Pressure 139/52 [Left] Blood Pressure [Post-Procedure ] Blood Pressure 139/52 [Pre-Procedure] O2 Sat by Pulse 98 100 Oximetry O2 Sat by Pulse Oximetry [ Intra-Procedure ] O2 Sat by Pulse Oximetry [Post -Procedure] O2 Sat by Pulse 100 Oximetry [Pre- Procedure] 07/22/16 07/22/16 06:25 06:30 Temperature Temperature [ 98.6 F Intra-Procedure ] Temperature [ 98.6 F Post-Procedure] Temperature [ Pre-Procedure] Pulse Rate Pulse Rate [ Anterior Bilateral] Pulse Rate [ 97 H Intra-Procedure ] Pulse Rate [ 100 H Post-Procedure] Pulse Rate [Pre -Procedure] Respiratory Rate Respiratory Rate [Anterior Bilateral] Respiratory 20 Rate [Intra- Procedure] Respiratory 22 Rate [Post- Procedure] Respiratory Rate [Pre- Procedure] Blood Pressure Blood Pressure 131/78 [Intra- Procedure] Blood Pressure [Left] Blood Pressure 131/78 [Post-Procedure ] Blood Pressure [Pre-Procedure] O2 Sat by Pulse Oximetry O2 Sat by Pulse 98 Oximetry [ Intra-Procedure ] O2 Sat by Pulse 98 Oximetry [Post -Procedure] O2 Sat by Pulse Oximetry [Pre- Procedure] - Reevaluation(s) Reevaluation #1: Current was obtained for elective intubation. Patient was given 2 mg of Versed as an anxiolytic. Preoxygenation with a nonrebreather. Vital signs stable saturation 100%. I assisted anesthesia with RSI. The patient was given 100 mg of propofol and 80 mg of succinylcholine after it was verified that she was easy to Ambu bag. Anesthesia had no difficulty intubating the patient utilizing a Carl 3 blade. We positioned the 2 at 22 cm at the teeth which is where good bilateral breath sounds were appreciated. End-tidal CO2 was positive throughout. 07/22/16 06:52 ED Medical Decision Making - Lab Data Result diagrams: 07/22/16 05:54 07/22/16 05:54 Laboratory Results - last 24 hr 07/22/16 07/22/16 05:54 05:54 WBC 10.8 RBC 4.65 Hgb 13.8 Hct 41.3 MCV 89 MCH 30 MCHC 34 RDW 13.3 Plt Count 363 Lymph % (Auto) 34.7 Canadian % (Auto) 9.0 H Eos % (Auto) 0.4 Baso % (Auto) 0.2 Lymph # 3.8 Canadian # 1.0 H Eos # 0.0 Baso # 0.0 Seg Neutrophils % 55.7 Seg Neutrophils # 6.0 Sodium 139 Potassium 3.7 Chloride 100.5 Carbon Dioxide 23 Anion Gap 19 BUN 8 Creatinine 0.7 Estimated GFR > 60 BUN/Creatinine Ratio 11.42 Glucose 116 H Calcium 9.0 Critical Care Time: Yes Critical care time in (mins) excluding proc time.: 45 Critical care attestation.: If time is entered above; I have spent that time in minutes in the direct care of this critically ill patient, excluding procedure time. ED Disposition Clinical Impression: Allergic reaction, Swollen throat, Tongue swelling Anaphylactic reaction Qualifiers: Encounter type: initial encounter Qualified Code(s): T78.2XXA - Anaphylactic shock, unspecified, initial encounter Angioedema Qualifiers: Encounter type: initial encounter Qualified Code(s): T78.3XXA - Angioneurotic edema, initial encounter Disposition: OP ADMITTED IP TO THIS HOSP Is pt being admited?: Yes Does the pt Need Aspirin: No Condition: Stable Referrals: PRIMARY CARE,MD [Primary Care Provider] - 3-5 Days
[2016-07-22 06:52] LABS: Anion Gap 19 mmol/L; BUN/Creatinine Ratio 11.42; Blood Urea Nitrogen 8 mg/dL (7-17); Carbon Dioxide 23 mmol/L (22-30); Chloride 100.5 mmol/L (98-107); Glucose 116 mg/dL (65-100); Potassium 3.7 mmol/L (3.6-5.0); Sodium 139 mmol/L (137-145)
[2016-07-22] MEDS ORDERED: VASELINE LIP THERAPY TP PRN (06:56)
[2016-07-22] MEDS ORDERED: ARTIFICIAL TEARS OPHTH OINT OU PRN (06:56)
[2016-07-22] MEDS ORDERED: NACL 0.9% 500 ML IV SCH (07:00)
[2016-07-22 07:18] LABS: ISTAT Base Excess -1; ISTAT HCO3 25.3; ISTAT PCO2 52.1 (35-45); ISTAT PH 7.294 (7.35-7.45); ISTAT PO2 108 (80-105); ISTAT SO2 97; ISTAT TCO2 27
[2016-07-22] MEDS ORDERED: fentaNYL DRIP Premix 2,000 MCG/100 ML BAG IV ONE ×2 (07:28→16:04)
[2016-07-22] MEDS: fentaNYL DRIP Premix 2,000 MCG/100 ML BAG IV SCH ×2 (07:41→20:54)
--- NOTE | 2016-07-22 08:07 | Admit Criteria Form ---
Admission Criteria Documentation: SYSTEMIC OR INFECTIOUS CONDITION Clinical Indications for Admission to Inpatient Care (Place 'X' for any and all applicable criteria): Hospital admission is needed for appropriate care of the patient because of ANY ONE of the following: []I. Hemodynamic instability indicated by ANY ONE of the following(1)(2)(3)(4 )(5): []a. Vital sign abnormality not readily corrected by appropriate treatment within 12 to 24 hours indicated by ANY ONE of the following: []i) Tachycardia that persists despite appropriate treatment []ii) Hypotension that persists despite appropriate treatment []iii) Orthostatic vital sign changes that persist despite appropriate treatment []b. Vital sign abnormality that is severe indicated by ANY ONE of the following: []i. Inadequate perfusion indicated by ANY ONE of the following : []1) Lactic acidosis (greater than 2 mmol/L) []2) New abnormal capillary refill (greater than 3 seconds) []3) Reduced urine output []4) New altered mental status []5) Myocardial Ischemia []ii. Mean arterial pressure [A] less than 60 mm Hg []iii. Mean arterial pressure[A] less than 70 mm Hg after 30 minutes of appropriate treatment (eg, fluid resuscitation) []iv. Sustained heart rate greater than 120 beats per minute in adult []v. IV inotropic or vasopressor medication required to maintain adequate blood pressure or perfusion []II. Systemic or infectious condition causing severe symptoms or findings not responsive to emergency or observation care treatment (as appropriate) indicated by ANY ONE of the following: []a. Cardiac arrhythmias of immediate concern(1)(2)(3) []b. Severe endocrine disorder (eg, thyrotoxicosis, adrenal insufficiency)(4)(5) []c. Seizures (eg, new or recurrent)(6) []d. New-onset end organ failure or dysfunction as indicated by ANY ONE of the following: []i. Acute unexplained hypoxemia (eg, not from lung infection or chronic disease)(7)(8)(9) []ii. Acute renal failure as indicated by new onset of ANY ONE of the following(10)(11)(12)(13)(14): []1) 3-fold rise in serum creatinine from baseline []2) Serum creatinine greater than 4 mg/dL (354 micromoles/L) with acute rise greater than 0.5 mg/dL (44.2 micromoles/L) []3) Reduction of more than 75% in estimated glomerular filtration rate from baseline. []4) Estimated glomerular filtration rate less than 35 mL/min/1.73m2 ( 0.59 mL/sec/1.73m2) in child younger than 18 years. []5) Cessation of urine output indicated by ALL of the following: []A. Adequate volume status []B. Inadequate urine output as indicated by ANY ONE of the following: []a. Urine output less than 0.3 mL/kg/hr for 24 hours []b. Anuria (urine output less than 0.1 mL/kg/hr) for 12 hours []iii. Acute mental status changes(15) []iv. Acute hepatic failure (eg, plasma bilirubin greater than 4 mg/ dL (68 micromoles/L), new INR greater than 2.0)(16)(17) []e. Unmanageable nausea and vomiting(18) []f. New-onset or uncontrolled central diabetes insipidus(19)(20) []g. Clinically significant dehydration(18)(21) []h. Hypoglycemia(22) []i. Acidosis (pH less than 7.35) or alkalosis (pH greater than 7.45)( 22)(23) []j. Toxic drug level that indicates need for specific monitoring or treatment(24)(25) []k. Severe electrolyte abnormalities indicated by ALL of the following( 1)(2)(3): []i. Electrolytes and associated findings are not as expected for patient baseline or acceptable treatment effects. []ii. Severe abnormalities indicated by ANY ONE of the following: []1) Sodium less than 130 mEq/L (mmol/L) (new) []2) Sodium less than 135 mEq/L (mmol/L) with ANY ONE of the following: []A. Uncorrectable (to near normal or chronic baseline) after trial of outpatient and emergency treatment []B. Altered mental status []C. Seizures []D. Severe medical etiology requiring inpatient management (eg , heart failure, hypovolemia) []3) Sodium greater than 155 mEq/L (mmol/L) []4) Sodium greater than 150 mEq/L (mmol/L) with ANY ONE of the following: []A. Uncorrectable (to near normal or chronic baseline) with outpatient and emergency treatment []B. Altered mental status []C. Seizures []D. Severe medical etiology (eg, hypovolemia, diabetes insipidus) []5) Potassium less than 2.5 mEq/L (mmol/L) despite outpatient and emergency treatment []6) Potassium less than 3 mEq/L (mmol/L) with ANY ONE of the following : []A. Weakness []B. Cardiac abnormality (eg, arrhythmia, conduction disturbance ) []C. Cardiac ischemia []D. Ileus []E. Ongoing medical cause requiring inpatient management (eg, acute renal wasting or SIADH) []F. Other severe symptoms []7) Potassium greater than 6.5 mEq/L (mmol/L) []8) Potassium greater than 5 mEq/L (mmol/L) with ANY ONE of the following: []A. Uncorrectable (to near normal or chronic baseline) with outpatient and emergency treatment []B. Severe ECG findings[A] []C. Acute worsening of renal failure (creatinine greater than 2.5 mg/dL (221 micromoles/L) or significant elevation for age and size) []D. Severe weakness []E. Severe medical etiology (eg, hemolysis, infection, drug overdose) []9) Calcium less than 7 mg/dL (1.75 mmol/L) despite outpatient and emergency treatment(5) []10) Calcium less than 8 mg/dL (2 mmol/L) with significant symptoms or findings (eg, altered mental status, muscle spasms, seizures, breathing difficulty, cardiac abnormality (eg, arrhythmia or conduction disturbance))(5) []11) Calcium greater than 14 mg/dL (3.5 mmol/L)(5) []12) Calcium greater than 12 mg/dL (3 mmol/L) with ANY ONE of the following(5): []A. Uncorrectable (to near normal or chronic baseline) with outpatient and emergency treatment []B. Significant dehydration or hypovolemia as indicated by ALL of the following(3)(6)(7): []a. Not resolved with initial treatments []b. Clinically significant dehydration as indicated by ANY ONE of the following: [](1) Vomiting refractory to outpatient treatment (ie, precluding oral rehydration) [](2) Inability to drink [](3) Hypernatremia or other electrolyte abnormality unable to be corrected with outpatient and emergency treatment [](4) Failure to remain hydrated with outpatient therapy [](5) Reduced urine output [](6) Hypotension [](7) Serious cause for dehydration requiring acute hospitalization ( eg, bowel obstruction, increased intracranial pressure, infectious cause) [](8) Child with ANY ONE of the following(8): [](i) Severe abdominal tenderness [](ii) Adequate care not available at home [](iii) Severe dehydration (greater than 9% loss of body weight) []C. Significant symptoms or findings (eg, altered mental status , cardiac abnormality (eg, arrhythmia, conduction disturbance), malignant etiology requiring inpatient treatment) []13) Phosphorus less than 1 mg/dL (0.32 mmol/L) []14) Phosphorus less than 1.5 mg/dL (0.48 mmol/L) with ANY ONE of the following: []A. Patient unresponsive to outpatient and emergency treatment []B. Significant symptoms or findings (eg, weakness, altered mental status, breathing difficulty, seizures, rhabdomyolysis) []15) Phosphorus greater than 10 mg/dL (3.2 mmol/L) []16) Phosphorus greater than 4.5 mg/dL (1.45 mmol/L) (new) with ANY ONE of the following: []A. Severe medical etiology (eg, crush injury, acute renal failure) []B. Associated hypocalcemia with significant findings (eg, neurologic symptoms, altered mental status, muscle spasms, seizures, breathing difficulty, cardiac abnormality (eg, arrhythmia, conduction disturbance)) []16) Magnesium less than 1 mg/dL (0.41 mmol/L) []17) Magnesium less than 1.5 mg/dL (0.62 mmol/L) with ANY ONE of the following: []A. Patient unresponsive to outpatient and emergency treatment []B. Associated hypocalcemia with significant findings (eg, altered mental status, muscle spasms, seizures, breathing difficulty, cardiac abnormality (eg, arrhythmia, conduction disturbance)) []C. Associated hypokalemia (potassium less than 3 mEq/L (mmol/L )) with risk of arrhythmia []18) Magnesium greater than 4 mEq/L (2 mmol/L) []19) Magnesium greater than 2.5 mEq/L (1.25 mmol/L) with significant symptoms or findings (eg, weakness, altered mental status, cardiac abnormality (eg, arrhythmia, conduction disturbance), breathing difficulty, severe medical etiology (eg, renal failure, hypovolemia)) []20) Uric acid greater than 20 mg/dL (1190 micromoles/L)(9) []21) Uric acid greater than 8 mg/dL (476 micromoles/L) with significant symptoms or findings of tumor lysis syndrome (eg, creatinine greater than 1.5 times upper limit of normal, cardiac abnormality (eg , arrhythmia, conduction disturbance), seizure)(9) []III. High fever or other high-risk infection situation as indicated by ANY ONE of the following(26)(27)(28): []a. Outpatient and observation care antimicrobial treatment unavailable, not effective, or not appropriate []b. Documented bacteremia []c. Temperature greater than 104.9 degrees F (40.5 degrees C) (oral) []d. Temperature greater than 103.1 degrees F (39.5 degrees C) (oral) or less than 96.8 degrees F (36 degrees C) (rectal) that does not respond to emergency treatment and observation care []IV. High-risk febrile neutropenia[A] as indicated by ANY ONE of the following(29)(30)(31)(32): []a. Profound neutropenia[B] anticipated to extend for more than 7 days []b. Hemodynamic instability []c. Hypoxemia []d. Tachypnea []e. Altered mental status []f. New-onset abdominal pain []g. New-onset vomiting or diarrhea []h. Oral or gastrointestinal mucositis that interferes with swallowing or causes severe diarrhea []i. Focal infection (eg, cellulitis, pneumonia, central line or catheter infection, perirectal abscess) []j. Renal insufficiency (eg, GFR of less than 30 mL/min/1.73m2 (0.5 mL/sec /1.73m2)). []k. Severe liver dysfunction (transaminase levels greater than 5 times normal) []l. Platelet count less than 50,000/mm3 (50 x109/L)(33) []m. Leukemia or lymphoma induction therapy []n. Leukemia not in complete remission or with evidence of disease progression []o. Bone marrow transplant patient []p. Alemtuzumab being used for therapy []q. [employer] Association for Supportive Care in Cancer (MASCC) Risk Index score of less than 21[C](33)(35). []V. Isolation required (eg, tuberculosis that requires isolation, Ebola infection)[D](36)(37)(38)(39)(40) []. Gangrene that requires treatment beyond emergency or observation level care(41)(42) []VII. Antitoxin administration and ongoing observation required (eg, tetanus, botulism)(43)(44) []. Suspected infection with rapid progression or severe symptoms as indicated by ANY ONE of the following(45): []a. Streptococcal or staphylococcal toxic shock(46) []b. Diphtheria(47) []c. Hantavirus(48) []d. Severe acute respiratory syndrome(8)(49) []e. Anthrax(50) []f. Ebola[D](36)(37)(38) []g. Necrotizing soft tissue infection(41)(42) []h. Plague(50) []i. Other suspected infection that requires care beyond emergency or observation level care []VII. Severe adverse drug or systemic toxin reaction as indicated by ANY ONE of the following(24): []a. Serotonin syndrome(51)(52) []b. Neuroleptic malignant syndrome(51)(52) []c. Cholinergic syndrome with severe symptoms (eg, bronchorrhea, weakness , mental status changes, seizures)(53) []d. Anticholinergic syndrome []e. Sympathetic syndrome with severe symptoms (eg, seizures, mental status changes, cardiac dysrhythmias) []f. Other severe adverse drug or systemic toxin reaction that remains after emergency or observation level care (as appropriate) [X]VIII. Allergic reaction with severe symptoms (not responsive to emergency or observation care treatment as appropriate), including ANY ONE of the following(54): []a. Airway edema (pharyngeal, epiglottic, or laryngeal edema) [X]b. Stridor []c. Respiratory failure []d. Bronchospasm []e. Hypotension []IX. Environmental emergency (not responsive to emergency or observation care treatment as appropriate) as indicated by ANY ONE of the following(55)(56): []a. Hyperthermia []b. Heat stroke []c. Heat exhaustion []d. Hypothermia (temperature less than 95 degrees F (35 degrees C) rectal) (57) []e. Electrocution(58) []X. Complications of transplanted organ (ie, not covered elsewhere)[E] indicated by ANY ONE of the following(59): []a. Acute graft rejection (or graft vs. host disease)[F] requiring inpatient management (eg, intravenous immunosuppression)(60)(61)(62)( 63) []b. Acute failure of transplanted organ necessitating inpatient care (eg, cannot be managed in other setting) []c. Infection requiring inpatient management (eg, Hemodynamic instability, need for intravenous antimicrobial treatment)(64)(65) []d. Other complication of transplanted organ requiring inpatient management []XI. Systemic or Infectious Condition condition, symptom, or finding for which emergency and observation care have failed or are not considered appropriate. See General Criteria: Observation Care, General Admission Criteria or Pediatric General Admission Criteria guideline as appropriate. The [facility] content created by [facility] has been revised. The portions of the content which have been revised are identified through the use of italic text or in bold and [facility] has neither reviewed nor approved the modified material. All other unmodified content is copyright [facility]. Please see references footnoted in the original [facility] edition 2016 Admission Criteria Met: Yes
--- NOTE | 2016-07-22 09:16 | XRay Report ---
AP CHEST :07/22/16 07:09 CLINICAL: Intubated. COMPARISON:07/03/15 FINDINGS: An endotracheal tube has been inserted and the tube is in satisfactory position. No other tubes or lines. The heart is normal size. Mild central vascular congestion and underexpansion of the lungs. No airspace disease or pleural effusion. No pneumothorax. IMPRESSION: Satisfactory placement of endotracheal tube.Normal chest given the degree of inspiration.
--- NOTE | 2016-07-22 09:47 | History and Physical Report ---
History of Present Illness Date of examination: 07/22/16 Date of admission: 07/22/16 Chief complaint: Swelling of tongue and lips History of present illness: 25-year-old female with a past medical history of frequent "allergic reactions" presents to the hospital complains of throat swelling prior to arrival. The last several months patient has had intermittent swelling to her lips, tongue, and foot. Each time it was treated as allergic reaction with steroids and improved. Last episode was approximately 1-2 weeks ago. Today patient has right sided tongue swelling and posterior throat swelling. Patient is short of breath with muffled voice and difficulty speaking. She is unable to swallow spitting her oral secretions into a bag. She has never had posterior throat or airway compromise before. Patient has been seen and evaluated by site supervising technical operator and no specific cause has been identified. Patient complains of throat pain. No meds taken prior to ED arrival. Patient intubated in ER by Dr Molina. Past History Past Medical History: other (Recurrent allergic reactions) Past Surgical History: No surgical history (Fibroids both breasts) Social history: smoking, alcohol abuse (Alcohol socially) Medications and Allergies Allergies Allergy/AdvReac Type Severity Reaction Status Date / Time codeine Allergy Nausea Verified 05/29/16 08:29 morphine Allergy Hives Verified 05/29/16 08:29 Home Medications Medication Instructions Recorded Confirmed Last Taken Type No Known Home Medications [No 07/22/16 07/22/16 Unknown History Reported Home Medications] Active Meds: Active Medications Hydrophilic Ointment (Vaseline Lip Therapy) 1 applic TP Q2HR PRN PRN Reason: Dry Lips Propofol (Diprivan 10 Mg/Ml) 1,000 mg in 100 mls @ 2.814 mls/hr IV TITR SLAVA; 5 MCG/KG/MIN PRN Reason: Protocol Last Admin: 07/22/16 06:30 Dose: 5 mcg/kg/min, 2.814 mls/hr Fentanyl Citrate (Fentanyl Drip Premix) 2,000 mcg in 100 mls @ 4.69 mls/hr IV TITR SLAVA; 1 MCG/KG/HR PRN Reason: Protocol Last Titration: 07/22/16 08:00 Dose: 2 mcg/kg/hr, 9.38 mls/hr Multi-Ingred Cream/Lotion/Oil/Oint (Artificial Tears Ophth Oint) 1 applic OU Q4HR PRN PRN Reason: Dry Eye(s) Sodium Chloride (Nacl 0.9% 500 Ml) 1 ml IV DIRECT SLAVA Review of Systems All systems: negative Constitutional: no weight loss, no weight gain Ears, nose, mouth and throat: dysphagia, other (Swelling of tongue and lips) Breasts: deferred Cardiovascular: no chest pain, no orthopnea, no palpitations, no rapid/ irregular heart beat, no edema, no syncope, no lightheadedness Respiratory: cough, shortness of breath Gastrointestinal: no abdominal pain, no nausea, no vomiting, no diarrhea, no constipation, no change in bowel habits Menstruation: currently menstrual Rectal: pain Musculoskeletal: no neck stiffness, no neck pain, no shooting arm pain, no arm numbness/tingling, no low back pain, no shooting leg pain Integumentary: no rash, no pruritis, no redness, no sores, no wounds Neurological: no seizures, no syncope Psychiatric: no anxiety, no paranoia, no depression Endocrine: no cold intolerance, no heat intolerance, no polyphagia, no excessive thirst, no polydipsia, no polyuria, no nocturia, no excessive sweating , no flushing, no weight change Hematologic/Lymphatic: no easy bruising, no easy bleeding Allergic/Immunologic: angioedema, seasonal allergies Exam - Constitutional Vitals: Temp Pulse Resp BP Pulse Ox 98.6 F 77 18 118/75 95 07/22/16 06:30 07/22/16 09:30 07/22/16 09:30 07/22/16 09:30 07/22/16 08:40 General appearance: Present: severe distress, well-nourished - EENT Eyes: Present: PERRL ENT: hearing intact, clear oral mucosa - Neck Neck: Present: supple, normal ROM - Respiratory Respiratory effort: normal Respiratory: bilateral: CTA, rhonchi (Intubated) - Cardiovascular Heart rate: 80 Rhythm: regular Heart Sounds: Present: S1 & S2. Absent: rub, click - Extremities Extremities: pulses symmetrical, No edema Peripheral Pulses: within normal limits - Abdominal General gastrointestinal: Present: soft, non-tender, non-distended, normal bowel sounds Female genitourinary: Present: normal - Integumentary Integumentary: Present: clear, warm, dry - Musculoskeletal Musculoskeletal: gait normal, strength equal bilaterally - Psychiatric Psychiatric: appropriate mood/affect, intact judgment & insight - Neurologic Neurologic: CNII-XII intact, moves all extremities - Allied Health Allied health notes reviewed: nursing, case management Results - Labs CBC & Chem 7: 07/22/16 05:54 07/22/16 05:54 Labs: Laboratory Last Values WBC 10.8 K/mm3 (4.5-11.0) 07/22/16 05:54 RBC 4.65 M/mm3 (3.65-5.03) 07/22/16 05:54 Hgb 13.8 gm/dl (10.1-14.3) 07/22/16 05:54 Hct 41.3 % (30.3-42.9) 07/22/16 05:54 MCV 89 fl (79-97) 07/22/16 05:54 MCH 30 pg (28-32) 07/22/16 05:54 MCHC 34 % (30-34) 07/22/16 05:54 RDW 13.3 % (13.2-15.2) 07/22/16 05:54 Plt Count 363 K/mm3 (140-440) 07/22/16 05:54 Lymph % (Auto) 34.7 % (13.4-35.0) 07/22/16 05:54 [place] % (Auto) 9.0 % (0.0-7.3) H 07/22/16 05:54 Eos % (Auto) 0.4 % (0.0-4.3) 07/22/16 05:54 Baso % (Auto) 0.2 % (0.0-1.8) 07/22/16 05:54 Lymph # 3.8 K/mm3 (1.2-5.4) 07/22/16 05:54 [place] # 1.0 K/mm3 (0.0-0.8) H 07/22/16 05:54 Eos # 0.0 K/mm3 (0.0-0.4) 07/22/16 05:54 Baso # 0.0 K/mm3 (0.0-0.1) 07/22/16 05:54 Seg Neutrophils % 55.7 % (40.0-70.0) 07/22/16 05:54 Seg Neutrophils # 6.0 K/mm3 (1.8-7.7) 07/22/16 05:54 POC ABG pH 7.294 (7.35-7.45) L 07/22/16 07:12 POC ABG pCO2 52.1 (35-45) H 07/22/16 07:12 POC ABG pO2 108 (80-105) H 07/22/16 07:12 POC ABG HCO3 25.3 07/22/16 07:12 POC ABG Total CO2 27 07/22/16 07:12 POC ABG O2 Sat 97 07/22/16 07:12 POC ABG Base Excess -1 07/22/16 07:12 FiO2 50 % 07/22/16 07:12 Sodium 139 mmol/L (137-145) 07/22/16 05:54 Potassium 3.7 mmol/L (3.6-5.0) 07/22/16 05:54 Chloride 100.5 mmol/L (98-107) 07/22/16 05:54 Carbon Dioxide 23 mmol/L (22-30) 07/22/16 05:54 Anion Gap 19 mmol/L 07/22/16 05:54 BUN 8 mg/dL (7-17) 07/22/16 05:54 Creatinine 0.7 mg/dL (0.7-1.2) 07/22/16 05:54 Estimated GFR > 60 ml/min 07/22/16 05:54 BUN/Creatinine Ratio 11.42 % 07/22/16 05:54 Glucose 116 mg/dL (65-100) H 07/22/16 05:54 Calcium 9.0 mg/dL (8.4-10.2) 07/22/16 05:54 Short CBC 07/22/16 Range/Units 05:54 WBC 10.8 (4.5-11.0) K/mm3 Hgb 13.8 (10.1-14.3) gm/dl Hct 41.3 (30.3-42.9) % Plt Count 363 (140-440) K/mm3 BMP 07/22/16 05:54 Sodium 139 Potassium 3.7 Chloride 100.5 Carbon Dioxide 23 BUN 8 Creatinine 0.7 Glucose 116 H Calcium 9.0 Assessment and Plan Advance Directives: Yes (Full code) VTE prophylaxis?: Chemical Plan of care discussed with patient/family: Yes - Patient Problems (1) Angioedema Current Visit: Yes Status: Acute Qualifiers: Encounter type: initial encounter Qualified Code(s): T78.3XXA - Angioneurotic edema, initial encounter Plan to address problem: Not on AD inhibitors.Etio unclear regarding frequent allergic reactions.Suspect food allergies.Patient intubated and started Solumedrol pepcid and Benadryl. Will need Allergy consultation and w/u as out patient. Patient to be on pepcid and antihistamines after extubation.
[2016-07-22] MEDS ORDERED: TYLENOL PO PRN (09:48)
[2016-07-22] MEDS ORDERED: MILK OF MAGNESIA PO PRN (09:48)
[2016-07-22] MEDS ORDERED: DULCOLAX PR PRN (09:48)
[2016-07-22] MEDS ORDERED: BENADRYL IV PRN (09:53)
[2016-07-22 10:22] LABS: ISTAT Base Excess 0; ISTAT PCO2 36.7 (35-45); ISTAT PH 7.423 (7.35-7.45); ISTAT PO2 107 (80-105); ISTAT SO2 98; ISTAT TCO2 25
[2016-07-22] MEDS ORDERED: LOVENOX SUB-Q ONE (11:42)
[2016-07-22] MEDS: LOVENOX SUB-Q SCH (11:49)
[2016-07-22] MEDS: PEPCID IV SCH ×2 (11:51→21:01)
[2016-07-22] MEDS: DILAUDID IV PRN (19:56)
[2016-07-22] MEDS: D5NS 1,000 ML IV SCH (20:55)
[2016-07-23] MEDS: DILAUDID IV PRN ×2 (03:33→14:00)
[2016-07-23] MEDS: DIPRIVAN 10 MG/ML 1,000 MG/100 ML BOTTLE IV SCH ×4 (03:39→22:46)
[2016-07-23 06:00] LABS: Hemoglobin 13.4 gm/dl (10.1-14.3); Mean Corpuscular HGB Conc 33 % (30-34); Mean Corpuscular Hemoglobin 29 pg (28-32); Mean Corpuscular Volume 89 fl (79-97); Platelet Count 317 K/mm3 (140-440); Red Blood Count 4.62 M/mm3 (3.65-5.03); Red Cell Distribution Width 13.2 % (13.2-15.2); White Blood Count 17.8 K/mm3 (4.5-11.0)
[2016-07-23 06:25] LABS: Alanine Aminotransferase 13 units/L (7-56); Albumin 3.7 g/dL (3.9-5); Albumin/Globulin Ratio 1.3 %; Alkaline Phosphatase 60 units/L (35-129); Anion Gap 18 mmol/L; BUN/Creatinine Ratio 11.42; Bilirubin,Total 0.2 mg/dL (0.1-1.2); Blood Urea Nitrogen 8 mg/dL (7-17); Calcium 9.2 mg/dL (8.4-10.2); Carbon Dioxide 22 mmol/L (22-30); Chloride 110.4 mmol/L (98-107); Glucose 140 mg/dL (65-100); Potassium 4.2 mmol/L (3.6-5.0); Sodium 146 mmol/L (137-145); Total Protein 6.5 g/dL (6.3-8.2)
[2016-07-23] MEDS: D5NS 1,000 ML IV SCH ×2 (06:45→16:48)
[2016-07-23] MEDS: fentaNYL DRIP Premix 2,000 MCG/100 ML BAG IV SCH ×3 (06:45→15:30)
[2016-07-23 07:21] LABS: ISTAT Base Excess -2; ISTAT HCO3 23.1; ISTAT PCO2 39.8 (35-45); ISTAT PH 7.371 (7.35-7.45); ISTAT PO2 66 (80-105); ISTAT SO2 92; ISTAT TCO2 24
--- NOTE | 2016-07-23 09:11 | XRay Report ---
Single view chest: Compared to 07/22/16. History: Followup respiratory failure. Findings: Normal cardiomediastinal silhouette the trachea is midline. No consolidation, pneumothorax or pleural effusion. Tip of endotracheal tube in normal position. Impression: No acute Cardiopulmonary findings.
--- NOTE | 2016-07-23 09:56 | Progress Note ---
Assessment and Plan 1. Acute angioedema - Continue IV Steroids and Benadryl. 2. Acute Respiratory Failure from angioedema - PT is currently intubated, ventilated supported and and sedated. Fi02 30%. . 3. Hypernatremia - Labs results done on 07/23/2016 show high levels of sodium of 146 mmol/L. Increase free fluid. 4. Hyperglycemia- Obtain HbA1c. Lab results done on 07/23/2016 show High Blood Glucose of 140 mg/dL. 5. Leukocytosis - Likely steriod induced. Lab blood work done on 07/23/2016 show an elevated WBC count of 17.8K/mm3. 6. Tracheal Aspirates sputum culture on 07/23/2016 results <10 squamous epithelial cells, <25 white blood cell and rare mixed usual respiratory josue. Culture in progress. 7. Morbid Obesity 8. DVT Prophylaxis - Lovanox 40mg subcutaneous po QD. 9. GI Prophylaxis - Zofran 4mg IV q8hrs. Subjective Date of service: 07/23/16 Principal diagnosis: acute respiratory failure from angioedema Interval history: Remains intubated and sedated. Fi02 30%. Objective - Constitutional Vitals: Vital Signs - 12hr 07/22/16 07/22/16 07/22/16 22:30 22:41 22:51 Temperature Pulse Rate 48 L 48 L 49 L Pulse Rate [ From Monitor] Pulse Rate [ Right Radial] Respiratory 18 18 18 Rate Blood Pressure 116/73 116/73 116/73 O2 Sat by Pulse 100 97 96 Oximetry 07/22/16 07/22/16 07/22/16 23:00 23:11 23:21 Temperature Pulse Rate 48 L 49 L 48 L Pulse Rate [ From Monitor] Pulse Rate [ Right Radial] Respiratory 18 18 18 Rate Blood Pressure 113/72 113/72 113/72 O2 Sat by Pulse 97 97 97 Oximetry 07/22/16 07/22/16 07/22/16 23:30 23:41 23:45 Temperature Pulse Rate 48 L 47 L 47 L Pulse Rate [ From Monitor] Pulse Rate [ Right Radial] Respiratory 18 18 Rate Blood Pressure 113/72 113/72 O2 Sat by Pulse 98 97 96 Oximetry 07/22/16 07/23/16 07/23/16 23:51 00:00 00:11 Temperature 98.1 F Pulse Rate 61 52 L 51 L Pulse Rate [ 71 From Monitor] Pulse Rate [ 74 Right Radial] Respiratory 18 21 18 Rate Blood Pressure 113/72 117/79 115/74 O2 Sat by Pulse 98 96 93 Oximetry 07/23/16 07/23/16 07/23/16 00:21 00:30 00:40 Temperature Pulse Rate 54 L 52 L 50 L Pulse Rate [ From Monitor] Pulse Rate [ Right Radial] Respiratory 18 18 18 Rate Blood Pressure 115/74 112/69 112/69 O2 Sat by Pulse 92 92 93 Oximetry 07/23/16 07/23/16 07/23/16 00:51 01:00 01:11 Temperature Pulse Rate 52 L 68 88 Pulse Rate [ From Monitor] Pulse Rate [ Right Radial] Respiratory 18 18 17 Rate Blood Pressure 112/69 126/83 126/83 O2 Sat by Pulse 92 95 Oximetry 07/23/16 07/23/16 07/23/16 01:21 01:30 01:41 Temperature Pulse Rate 69 80 66 Pulse Rate [ From Monitor] Pulse Rate [ Right Radial] Respiratory 18 11 L 17 Rate Blood Pressure 126/83 127/82 127/82 O2 Sat by Pulse 97 97 Oximetry 07/23/16 07/23/16 07/23/16 01:51 02:00 02:11 Temperature Pulse Rate 57 L 54 L 54 L Pulse Rate [ From Monitor] Pulse Rate [ Right Radial] Respiratory 18 18 18 Rate Blood Pressure 127/82 112/68 112/68 O2 Sat by Pulse 95 96 95 Oximetry 07/23/16 07/23/16 07/23/16 02:21 02:30 02:41 Temperature Pulse Rate 56 L 54 L 54 L Pulse Rate [ From Monitor] Pulse Rate [ Right Radial] Respiratory 18 18 18 Rate Blood Pressure 112/68 108/64 108/64 O2 Sat by Pulse 95 97 95 Oximetry 07/23/16 07/23/16 07/23/16 02:51 03:00 03:11 Temperature Pulse Rate 54 L 52 L 53 L Pulse Rate [ From Monitor] Pulse Rate [ Right Radial] Respiratory 18 18 18 Rate Blood Pressure 108/64 110/67 110/67 O2 Sat by Pulse 95 98 95 Oximetry 07/23/16 07/23/16 07/23/16 03:21 03:30 03:33 Temperature Pulse Rate 53 L 52 L Pulse Rate [ From Monitor] Pulse Rate [ Right Radial] Respiratory 18 18 26 H Rate Blood Pressure 110/67 109/67 O2 Sat by Pulse 95 95 Oximetry 07/23/16 07/23/16 07/23/16 03:41 03:51 04:00 Temperature Pulse Rate 53 L 55 L 53 L Pulse Rate [ From Monitor] Pulse Rate [ Right Radial] Respiratory 18 18 18 Rate Blood Pressure 109/67 109/67 111/64 O2 Sat by Pulse 95 95 94 Oximetry 07/23/16 07/23/16 07/23/16 04:11 04:21 04:29 Temperature Pulse Rate 52 L 51 L 50 L Pulse Rate [ From Monitor] Pulse Rate [ Right Radial] Respiratory 18 18 Rate Blood Pressure 111/64 111/64 O2 Sat by Pulse 96 96 96 Oximetry 07/23/16 07/23/16 07/23/16 04:30 04:41 04:51 Temperature Pulse Rate 51 L 87 55 L Pulse Rate [ From Monitor] Pulse Rate [ Right Radial] Respiratory 18 14 18 Rate Blood Pressure 112/64 112/64 112/64 O2 Sat by Pulse 94 97 94 Oximetry 07/23/16 07/23/16 07/23/16 05:00 05:11 05:21 Temperature Pulse Rate 52 L 54 L 54 L Pulse Rate [ From Monitor] Pulse Rate [ Right Radial] Respiratory 18 18 18 Rate Blood Pressure 109/61 109/61 109/61 O2 Sat by Pulse 95 95 95 Oximetry 07/23/16 07/23/16 07/23/16 05:30 05:41 05:51 Temperature Pulse Rate 53 L 57 L 56 L Pulse Rate [ From Monitor] Pulse Rate [ Right Radial] Respiratory 18 18 18 Rate Blood Pressure 109/58 109/58 109/58 O2 Sat by Pulse 95 95 95 Oximetry 07/23/16 07/23/16 07/23/16 06:00 06:11 06:21 Temperature Pulse Rate 53 L 53 L 53 L Pulse Rate [ From Monitor] Pulse Rate [ Right Radial] Respiratory 18 18 18 Rate Blood Pressure 105/63 105/63 105/63 O2 Sat by Pulse 95 95 96 Oximetry 07/23/16 07/23/16 07/23/16 06:30 06:41 08:00 Temperature 98 F Pulse Rate 52 L 52 L Pulse Rate [ From Monitor] Pulse Rate [ Right Radial] Respiratory 18 18 Rate Blood Pressure 109/65 105/63 O2 Sat by Pulse 97 96 Oximetry 07/23/16 09:03 Temperature Pulse Rate 54 L Pulse Rate [ From Monitor] Pulse Rate [ Right Radial] Respiratory Rate Blood Pressure 109/59 O2 Sat by Pulse 96 Oximetry General appearance: Present: no acute distress, well-nourished, obese, other ( intubate and vent supported) - EENT Eyes: PERRL, EOM intact ENT: hearing intact, other (swollen lips, tongue) Ears: bilateral: normal - Neck Neck: supple, normal ROM, other - Respiratory Respiratory effort: normal Respiratory: bilateral: wheezing - Cardiovascular Rhythm: regular Heart Sounds: Present: S1 & S2. Absent: gallop, rub Extremities: pulses intact, No edema, normal color, Full ROM - Gastrointestinal General gastrointestinal: Present: soft, non-tender, non-distended, normal bowel sounds - Integumentary Integumentary: clear, warm, dry - Musculoskeletal Musculoskeletal: other (intubated and sedated) - Neurologic Neurologic: other (intubated and sedated) - Labs CBC & Chem 7: 07/23/16 05:06 07/23/16 05:06 Labs: Abnormal lab results 07/22/16 07/23/16 07/23/16 Range/Units 10:16 04:36 05:06 WBC 17.8 H (4.5-11.0) K/mm3 POC ABG pO2 107 H 66 L (80-105) Sodium (137-145) mmol/L Chloride (98-107) mmol/L Glucose (65-100) mg/dL Albumin (3.9-5) g/dL 07/23/16 Range/Units 05:06 WBC (4.5-11.0) K/mm3 POC ABG pO2 (80-105) Sodium 146 H D (137-145) mmol/L Chloride 110.4 H (98-107) mmol/L Glucose 140 H (65-100) mg/dL Albumin 3.7 L (3.9-5) g/dL
[2016-07-23 09:59] LABS: Blastocytes % (Manual) 0 %; Eosinophils % (Manual) 0 % (0.0-4.3)
[2016-07-23 10:00] LABS: Diff Status Complete; RBC Morphology Normal
[2016-07-23] MEDS: LOVENOX SUB-Q SCH (10:28)
[2016-07-23] MEDS: PEPCID IV SCH ×2 (10:28→22:49)
[2016-07-23] MEDS: BENADRYL IV SCH ×3 (10:29→22:48)
--- NOTE | 2016-07-23 10:29 | Consultation ---
History of Present Illness Consult date: 07/23/16 Reason for consult: other (Angioedema, acute respiratory failure) History of present illness: 25-year-old female with a past medical history of frequent "allergic reactions" presents to the hospital complains of throat swelling prior to arrival. The last several months patient has had intermittent swelling to her lips, tongue, and foot. Each time it was treated as allergic reaction with steroids and improved. Last episode was approximately 1-2 weeks ago. Today patient has right sided tongue swelling and posterior throat swelling. Patient is short of breath with muffled voice and difficulty speaking. She is unable to swallow spitting her oral secretions into a bag. She has never had posterior throat or airway compromise before. Patient has been seen and evaluated by steel wheel engraver and no specific cause has been identified. Intubated at the ED and admitted to the ICU. Asked to follow up. Family at bedside. Past History Past Medical History: other (Recurrent allergic reactions) Past Surgical History: No surgical history (Fibroids both breasts) Social history: smoking, alcohol abuse (Alcohol socially) Medications and Allergies Allergies Allergy/AdvReac Type Severity Reaction Status Date / Time codeine Allergy Nausea Verified 05/29/16 08:29 morphine Allergy Hives Verified 05/29/16 08:29 Home Medications Medication Instructions Recorded Confirmed Last Taken Type RX: No Known Home Medications [No 07/22/16 07/22/16 Unknown History Reported Home Medications] Active Meds: Active Medications Acetaminophen (Tylenol) 650 mg PO Q4H PRN PRN Reason: Pain MILD(1-3)/Fever >100.5/RODRIGUEZ Bisacodyl (Dulcolax) 10 mg RI QDAY PRN PRN Reason: Constipation unrelieved by MOM Diphenhydramine HCl (Benadryl) 25 mg IV Q6H SLAVA Enoxaparin Sodium (Lovenox) 40 mg SUB-Q QDAY [facility] Last Admin: 07/22/16 11:49 Dose: 40 mg Famotidine (Pepcid) 20 mg IV BID [facility] Last Admin: 07/22/16 21:01 Dose: 20 mg Hydromorphone HCl (Dilaudid) 0.5 mg IV Q3H PRN PRN Reason: Pain , Severe (7-10) Last Admin: 07/23/16 03:33 Dose: 0.5 mg Hydrophilic Ointment (Vaseline Lip Therapy) 1 applic TP Q2HR PRN PRN Reason: Dry Lips Propofol (Diprivan 10 Mg/Ml) 1,000 mg in 100 mls @ 2.814 mls/hr IV TITR SLAVA; 5 MCG/KG/MIN PRN Reason: Protocol Last Admin: 07/23/16 03:39 Dose: 40 mcg/kg/min, 22.512 mls/hr Fentanyl Citrate (Fentanyl Drip Premix) 2,000 mcg in 100 mls @ 4.69 mls/hr IV TITR SLAVA; 1 MCG/KG/HR PRN Reason: Protocol Last Admin: 07/23/16 06:45 Dose: 4 mcg/kg/hr, 18.76 mls/hr Dextrose/Sodium Chloride (D5ns) 1,000 mls @ 125 mls/hr IV DIRECT SLAVA Last Admin: 07/23/16 06:45 Dose: 125 mls/hr Magnesium Hydroxide (Milk Of Magnesia) 30 ml PO Q4H PRN PRN Reason: Constipation Methylprednisolone Sodium Succinate (Solu-Medrol) 125 mg IV Q8H SLAVA Last Admin: 07/23/16 03:32 Dose: 125 mg Multi-Ingred Cream/Lotion/Oil/Oint (Artificial Tears Ophth Oint) 1 applic OU Q4HR PRN PRN Reason: Dry Eye(s) Ondansetron HCl (Zofran) 4 mg IV Q8H PRN PRN Reason: N/V unrelieved by Reglan Sodium Chloride (Nacl 0.9% 500 Ml) 1 ml IV DIRECT SLAVA Review of Systems ROS unobtainable: due to endotracheal tube Physical Examination Vital signs: Vital Signs Temp Pulse Resp BP Pulse Ox 98.5 F 96 H 22 125/80 96 07/22/16 05:27 07/22/16 05:27 07/22/16 05:27 07/22/16 05:27 07/22/16 05:27 General appearance: no acute distress, other (morbidly obese) Eyes: non-icteric ENT: oropharynx moist, other (ETT in position at 22) Neck: no lymphadenopathy, no JVD Ascultation: Bilateral: clear Cardiovascular: regular rate and rhythm Gastrointestinal: normoactive bowel sounds, non-distended Integumentary: normal Extremities: no cyanosis Musculoskeletal: no deformities other (responsive RASS -1) Results - Laboratory Findings CBC and BMP: 07/25/16 04:51 07/25/16 04:51 ABG POC ABG pH 7.371 (7.35-7.45) 07/23/16 04:36 POC ABG pCO2 39.8 (35-45) 07/23/16 04:36 POC ABG pO2 66 (80-105) L 07/23/16 04:36 POC ABG HCO3 23.1 07/23/16 04:36 POC ABG Total CO2 24 07/23/16 04:36 POC ABG O2 Sat 92 07/23/16 04:36 Abnormal lab findings: Abnormal Labs 07/22/16 07/23/16 07/23/16 10:16 04:36 05:06 WBC 17.8 H Lymphocytes % (Manual) 1.0 L Seg Neutrophils # Man 16.6 H Lymphocytes # (Manual) 0.2 L POC ABG pO2 107 H 66 L Sodium Chloride Glucose Albumin 07/23/16 05:06 WBC Lymphocytes % (Manual) Seg Neutrophils # Man Lymphocytes # (Manual) POC ABG pO2 Sodium 146 H D Chloride 110.4 H Glucose 140 H Albumin 3.7 L - Diagnostic Findings Chest x-ray: report reviewed Assessment and Plan Acute angioedema Acute respiratory failure due to the above. Morbid obesity Rec Follow up ventilators orders Continue IV steroids Continue Benadryl IV Zantac or equivalent DVT prophylaxis Plan is to due leak/suction testing next 24 hr and extubate if appropriate,use meds working enough Discussed with family at the bedside CCT was 40 min
[2016-07-24] MEDS: fentaNYL DRIP Premix 2,000 MCG/100 ML BAG IV SCH ×3 (01:06→22:55)
[2016-07-24 05:06] LABS: ISTAT Base Excess -1; ISTAT HCO3 23.8; ISTAT PCO2 36.8 (35-45); ISTAT PO2 77 (80-105); ISTAT SO2 96; ISTAT TCO2 25
[2016-07-24] MEDS: BENADRYL IV SCH ×4 (05:08→21:39)
[2016-07-24] MEDS: DIPRIVAN 10 MG/ML 1,000 MG/100 ML BOTTLE IV SCH ×3 (05:09→17:11)
[2016-07-24] MEDS: D5NS 1,000 ML IV SCH ×2 (05:12→20:03)
--- NOTE | 2016-07-24 09:17 | XRay Report ---
AP CHEST: HISTORY: Followup respiratory failure The endotracheal tube remains in good position. AP view of the chest demonstrates a normal mediastinal and cardiac contour with clear lungs and normal bony and soft tissue structures. IMPRESSION: Unremarkable AP chest. No change since yesterday's exam.
[2016-07-24] MEDS: LOVENOX SUB-Q SCH (09:27)
[2016-07-24] MEDS: PEPCID IV SCH ×2 (09:27→21:40)
--- NOTE | 2016-07-24 13:25 | Progress Note ---
Assessment and Plan Acute angioedema. No additional problems but cuff leak testing not adequate early this morning. Acute respiratory failure due to the above. Morbid obesity Rec The cuff leak test admission. It is still abnormal will postpone extubation for about 24 hours. Continue IV steroids but decrease dose to 60 mg every 6 hours Continue Benadryl IV Zantac or equivalent Extubation precautions Discussed with family at the bedside CCT was 35 min in [id number] evaluation and coordination care including discussion with RT team Subjective Date of service: 07/24/16 Principal diagnosis: acute respiratory failure from angioedema Interval history: Partial sedated. Reportedly no complaints this morning. Objective Vital Signs - 12hr 07/24/16 07/24/16 07/24/16 01:30 02:00 02:30 Temperature Pulse Rate 51 L 50 L 50 L Pulse Rate [ From Monitor] Respiratory 18 18 18 Rate Respiratory Rate [Face] Blood Pressure 110/65 113/64 111/68 O2 Sat by Pulse 96 95 95 Oximetry 07/24/16 07/24/16 07/24/16 03:00 03:30 04:00 Temperature Pulse Rate 49 L 51 L 51 L Pulse Rate [ 78 From Monitor] Respiratory 7 L 18 18 Rate Respiratory Rate [Face] Blood Pressure 113/70 113/69 118/70 O2 Sat by Pulse 96 95 96 Oximetry 07/24/16 07/24/16 07/24/16 04:04 04:31 05:00 Temperature 98.6 F Pulse Rate 51 L 92 H 67 Pulse Rate [ From Monitor] Respiratory 14 19 Rate Respiratory Rate [Face] Blood Pressure 118/70 118/70 122/71 O2 Sat by Pulse 96 95 95 Oximetry 07/24/16 07/24/16 07/24/16 05:09 05:30 06:00 Temperature Pulse Rate 50 L 47 L Pulse Rate [ From Monitor] Respiratory 18 19 19 Rate Respiratory Rate [Face] Blood Pressure 115/73 121/79 O2 Sat by Pulse 96 97 Oximetry 07/24/16 07/24/16 07/24/16 06:30 07:00 07:30 Temperature Pulse Rate 58 L 53 L 48 L Pulse Rate [ From Monitor] Respiratory 18 18 18 Rate Respiratory Rate [Face] Blood Pressure 136/90 122/75 119/78 O2 Sat by Pulse 98 98 99 Oximetry 07/24/16 07/24/16 07/24/16 08:00 08:08 08:30 Temperature 98 F Pulse Rate 46 L 52 L 45 L Pulse Rate [ 46 L From Monitor] Respiratory 18 17 Rate Respiratory Rate [Face] Blood Pressure 126/82 133/85 131/86 O2 Sat by Pulse 99 98 100 Oximetry 07/24/16 07/24/16 07/24/16 09:00 09:30 10:00 Temperature Pulse Rate 46 L 66 50 L Pulse Rate [ From Monitor] Respiratory 18 7 L 18 Rate Respiratory 18 Rate [Face] Blood Pressure 129/85 133/85 126/81 O2 Sat by Pulse 100 96 97 Oximetry 07/24/16 07/24/16 07/24/16 10:28 10:30 11:00 Temperature Pulse Rate 50 L 48 L Pulse Rate [ From Monitor] Respiratory 18 18 18 Rate Respiratory Rate [Face] Blood Pressure 129/86 132/84 O2 Sat by Pulse 100 99 Oximetry 07/24/16 07/24/16 11:48 12:00 Temperature 98.9 F Pulse Rate 48 L Pulse Rate [ From Monitor] Respiratory Rate Respiratory Rate [Face] Blood Pressure 132/84 O2 Sat by Pulse 99 Oximetry Constitutional: no acute distress, other (morbidly obese) Eyes: non-icteric ENT: oropharynx moist, other (ETT in position at 22) Neck: no lymphadenopathy, no JVD Ascultation: Bilateral: clear, rhonchi (sporadic , scattered, bilateral) Cardiovascular: regular rate and rhythm Gastrointestinal: normoactive bowel sounds, non-distended Integumentary: normal Extremities: no cyanosis Neurologic: other (responsive RASS -1) CBC and BMP: 07/23/16 05:06 07/23/16 05:06 ABG, PT/INR, D-dimer: ABG POC ABG pH 7.420 (7.35-7.45) 07/24/16 04:03 POC ABG pCO2 36.8 (35-45) 07/24/16 04:03 POC ABG pO2 77 (80-105) L 07/24/16 04:03 POC ABG HCO3 23.8 07/24/16 04:03 POC ABG Total CO2 25 07/24/16 04:03 POC ABG O2 Sat 96 07/24/16 04:03 Abnormal lab findings: Abnormal Labs 07/22/16 07/23/16 07/23/16 10:16 04:36 05:06 WBC 17.8 H Lymphocytes % (Manual) 1.0 L Seg Neutrophils # Man 16.6 H Lymphocytes # (Manual) 0.2 L POC ABG pO2 107 H 66 L Sodium Chloride Glucose Albumin 07/23/16 07/24/16 05:06 04:03 WBC Lymphocytes % (Manual) Seg Neutrophils # Man Lymphocytes # (Manual) POC ABG pO2 77 L Sodium 146 H D Chloride 110.4 H Glucose 140 H Albumin 3.7 L
--- NOTE | 2016-07-24 16:09 | Progress Note ---
Assessment and Plan Assessment and plan: 1. Acute angioedema - Continue IV Steroids and Benadryl. 2. Acute Respiratory Failure from angioedema - Patient will be be extubated today 3. Hyperglycemia- - likely from steroid, or blurred A1c 5. 4. Leukocytosis - Likely steriod induced. 5. Tracheal Aspirates sputum culture on 07/23/2016 results <10 squamous epithelial cells, <25 white blood cell and rare mixed usual respiratory josue. Culture in progress 6. Morbid Obesity 7. DVT Prophylaxis - Lovanox 40mg subcutaneous po QD. 8. GI Prophylaxis - Zofran 4mg IV q8hrs. Disposition Plan: continue ICU care History Interval history: Patient was seen and evaluated this morning, patient didn't have any new complaints, patient is intubated and discussed with her , he said she communicated with her in writing and patient understand what the said. Hospitalist Physical - Physical exam Narrative exam: Patient is intubated, shows mild lip swelling. The patient appeared well nourished and normally developed. Vital signs as documented. Head exam is unremarkable. No scleral icterus . Neck is without jugular venous distension, thyromegaly, or carotid bruits. Lungs significant for wheezing. Cardiac exam reveals regular rate and Rhythm. First and second heart sounds normal. No murmurs, rubs or gallops. Abdominal exam reveals normal bowel sounds, no masses, no organomegaly and no aortic enlargement. Extremities are nonedematous and both femoral and pedal pulses are normal. CRM MARKETING EXECUTIVE: Alert. No focal weakness. - Constitutional Vitals: Temp Pulse Resp BP Pulse Ox 98.9 F 46 L 15 130/86 98 07/24/16 12:00 07/24/16 13:00 07/24/16 13:00 07/24/16 13:00 07/24/16 13:00 General appearance: Present: no acute distress, well-nourished, obese, other ( intubate and vent supported) Results - Labs CBC & Chem 7: 07/23/16 05:06 07/23/16 05:06 Labs: Laboratory Last Values WBC 17.8 K/mm3 (4.5-11.0) H 07/23/16 05:06 RBC 4.62 M/mm3 (3.65-5.03) 07/23/16 05:06 Hgb 13.4 gm/dl (10.1-14.3) 07/23/16 05:06 Hct 41.0 % (30.3-42.9) 07/23/16 05:06 MCV 89 fl (79-97) 07/23/16 05:06 MCH 29 pg (28-32) 07/23/16 05:06 MCHC 33 % (30-34) 07/23/16 05:06 RDW 13.2 % (13.2-15.2) 07/23/16 05:06 Plt Count 317 K/mm3 (140-440) 07/23/16 05:06 Lymph % (Auto) 34.7 % (13.4-35.0) 07/22/16 05:54 [place] % (Auto) 9.0 % (0.0-7.3) H 07/22/16 05:54 Eos % (Auto) 0.4 % (0.0-4.3) 07/22/16 05:54 Baso % (Auto) 0.2 % (0.0-1.8) 07/22/16 05:54 Lymph # 3.8 K/mm3 (1.2-5.4) 07/22/16 05:54 [place] # 1.0 K/mm3 (0.0-0.8) H 07/22/16 05:54 Eos # 0.0 K/mm3 (0.0-0.4) 07/22/16 05:54 Baso # 0.0 K/mm3 (0.0-0.1) 07/22/16 05:54 Add Manual Diff Complete 07/23/16 05:06 Total Counted 100 07/23/16 05:06 Seg Neutrophils % Distribution Specialist 07/23/16 05:06 Band Neutrophils % 2.0 % 07/23/16 05:06 Lymphocytes % (Manual) 1.0 % (13.4-35.0) L 07/23/16 05:06 Reactive Lymphs % (Man) 0 % 07/23/16 05:06 Monocytes % (Manual) 4.0 % (0.0-7.3) 07/23/16 05:06 Eosinophils % (Manual) 0 % (0.0-4.3) 07/23/16 05:06 Metamyelocytes % 0 % 07/23/16 05:06 Myelocytes % 0 % 07/23/16 05:06 Promyelocytes % 0 % 07/23/16 05:06 Blast Cells % 0 % 07/23/16 05:06 Nucleated RBC % Not Reportable 07/23/16 05:06 Seg Neutrophils # 6.0 K/mm3 (1.8-7.7) 07/22/16 05:54 Seg Neutrophils # Man 16.6 K/mm3 (1.8-7.7) H 07/23/16 05:06 Band Neutrophils # 0.4 K/mm3 07/23/16 05:06 Lymphocytes # (Manual) 0.2 K/mm3 (1.2-5.4) L 07/23/16 05:06 Abs React Lymphs (Man) 0.0 K/mm3 07/23/16 05:06 Monocytes # (Manual) 0.7 K/mm3 (0.0-0.8) 07/23/16 05:06 Eosinophils # (Manual) 0.0 K/mm3 (0.0-0.4) 07/23/16 05:06 Basophils # (Manual) 0.0 K/mm3 (0.0-0.1) 07/23/16 05:06 Metamyelocytes # 0.0 K/mm3 07/23/16 05:06 Myelocytes # 0.0 K/mm3 07/23/16 05:06 Promyelocytes # 0.0 K/mm3 07/23/16 05:06 Blast Cells # 0.0 K/mm3 07/23/16 05:06 WBC Morphology Not Reportable 07/23/16 05:06 Hypersegmented Neuts Not Reportable 07/23/16 05:06 Hyposegmented Neuts Not Reportable 07/23/16 05:06 Hypogranular Neuts Not Reportable 07/23/16 05:06 Smudge Cells Not Reportable 07/23/16 05:06 Toxic Granulation Not Reportable 07/23/16 05:06 Toxic Vacuolation Not Reportable 07/23/16 05:06 Dohle Bodies Not Reportable 07/23/16 05:06 Pelger-Huet Anomaly Not Reportable 07/23/16 05:06 Rhys Rods Not Reportable 07/23/16 05:06 Platelet Estimate Appears normal 07/23/16 05:06 Clumped Platelets Not Reportable 07/23/16 05:06 Plt Clumps, EDTA Not Reportable 07/23/16 05:06 Large Platelets Not Reportable 07/23/16 05:06 Giant Platelets Not Reportable 07/23/16 05:06 Platelet Satelliting Not Reportable 07/23/16 05:06 Plt Morphology Comment Not Reportable 07/23/16 05:06 RBC Morphology Normal 07/23/16 05:06 Dimorphic RBCs Not Reportable 07/23/16 05:06 Polychromasia Not Reportable 07/23/16 05:06 Hypochromasia Not Reportable 07/23/16 05:06 Poikilocytosis Not Reportable 07/23/16 05:06 Anisocytosis Not Reportable 07/23/16 05:06 Microcytosis Not Reportable 07/23/16 05:06 Macrocytosis Not Reportable 07/23/16 05:06 Spherocytes Not Reportable 07/23/16 05:06 Pappenheimer Bodies Not Reportable 07/23/16 05:06 Sickle Cells Not Reportable 07/23/16 05:06 Target Cells Not Reportable 07/23/16 05:06 Tear Drop Cells Not Reportable 07/23/16 05:06 Ovalocytes Not Reportable 07/23/16 05:06 Helmet Cells Not Reportable 07/23/16 05:06 Kwan-Mears Bodies Not Reportable 07/23/16 05:06 [place] Rings Not Reportable 07/23/16 05:06 Ev Cells Not Reportable 07/23/16 05:06 Bite Cells Not Reportable 07/23/16 05:06 Crenated Cell Not Reportable 07/23/16 05:06 Elliptocytes Not Reportable 07/23/16 05:06 Acanthocytes (Spur) Not Reportable 07/23/16 05:06 Rouleaux Not Reportable 07/23/16 05:06 Hemoglobin C Crystals Not Reportable 07/23/16 05:06 Schistocytes Not Reportable 07/23/16 05:06 Malaria parasites Not Reportable 07/23/16 05:06 Binu Bodies Not Reportable 07/23/16 05:06 Hem Pathologist Commnt No 07/23/16 05:06 POC ABG pH 7.420 (7.35-7.45) 07/24/16 04:03 POC ABG pCO2 36.8 (35-45) 07/24/16 04:03 POC ABG pO2 77 (80-105) L 07/24/16 04:03 POC ABG HCO3 23.8 07/24/16 04:03 POC ABG Total CO2 25 07/24/16 04:03 POC ABG O2 Sat 96 07/24/16 04:03 POC ABG Base Excess -1 07/24/16 04:03 FiO2 30 % 07/24/16 04:03 Sodium 146 mmol/L (137-145) H D 07/23/16 05:06 Potassium 4.2 mmol/L (3.6-5.0) 07/23/16 05:06 Chloride 110.4 mmol/L (98-107) H 07/23/16 05:06 Carbon Dioxide 22 mmol/L (22-30) 07/23/16 05:06 Anion Gap 18 mmol/L 07/23/16 05:06 BUN 8 mg/dL (7-17) 07/23/16 05:06 Creatinine 0.7 mg/dL (0.7-1.2) 07/23/16 05:06 Estimated GFR > 60 ml/min 07/23/16 05:06 BUN/Creatinine Ratio 11.42 % 07/23/16 05:06 Glucose 140 mg/dL (65-100) H 07/23/16 05:06 Hemoglobin A1c 5.2 % (4-6) 07/23/16 05:06 Calcium 9.2 mg/dL (8.4-10.2) 07/23/16 05:06 Total Bilirubin 0.2 mg/dL (0.1-1.2) 07/23/16 05:06 AST 14 units/L (5-40) 07/23/16 05:06 ALT 13 units/L (7-56) 07/23/16 05:06 Alkaline Phosphatase 60 units/L (35-129) 07/23/16 05:06 Total Protein 6.5 g/dL (6.3-8.2) 07/23/16 05:06 Albumin 3.7 g/dL (3.9-5) L 07/23/16 05:06 Albumin/Globulin Ratio 1.3 % 07/23/16 05:06
[2016-07-25] MEDS: DIPRIVAN 10 MG/ML 1,000 MG/100 ML BOTTLE IV SCH (04:47)
[2016-07-25] MEDS: BENADRYL IV SCH ×4 (04:49→22:04)
[2016-07-25 05:57] LABS: ISTAT Base Excess 0; ISTAT HCO3 24.2; ISTAT PCO2 36.4 (35-45); ISTAT PH 7.431 (7.35-7.45); ISTAT PO2 80 (80-105); ISTAT SO2 96; ISTAT TCO2 25
[2016-07-25 06:21] LABS: Blood Urea Nitrogen 12 mg/dL (7-17); Calcium 8.6 mg/dL (8.4-10.2); Carbon Dioxide 23 mmol/L (22-30); Glucose 121 mg/dL (65-100)
[2016-07-25 06:22] LABS: Anion Gap 17 mmol/L; Chloride 108.6 mmol/L (98-107); Hemoglobin 12.4 gm/dl (10.1-14.3); Mean Corpuscular HGB Conc 33 % (30-34); Mean Corpuscular Hemoglobin 29 pg (28-32); Mean Corpuscular Volume 90 fl (79-97); Platelet Count 291 K/mm3 (140-440); Red Blood Count 4.22 M/mm3 (3.65-5.03); Red Cell Distribution Width 13.2 % (13.2-15.2); Sodium 145 mmol/L (137-145); White Blood Count 14.5 K/mm3 (4.5-11.0)
--- NOTE | 2016-07-25 08:15 | Progress Note ---
Assessment and Plan Acute angioedema. Acute respiratory failure due to the above.Bedside assessment shows pt with negative ETT suction test ( normal breathing/inhalation ,no suction felt, with ETT occluded,cough deflated) Morbid obesity Rec PSV/CPAP trail Sedation off If tolerated extubate,monitor for stridor post extubation Continue current steroids next 24 hr Discussed with family at the bedside CCT was 40 min in [id number] evaluation and coordination care including discussion with RN/RT team Subjective Date of service: 07/25/16 Principal diagnosis: acute respiratory failure from angioedema Interval history: Alert . No SOB Objective Vital Signs - 12hr 07/24/16 07/24/16 07/24/16 20:30 21:00 21:30 Temperature Pulse Rate 44 L 44 L 45 L Respiratory 18 18 18 Rate Respiratory Rate [Face] Blood Pressure 132/89 128/89 126/79 O2 Sat by Pulse 97 96 93 Oximetry 07/24/16 07/24/16 07/24/16 22:00 22:30 23:00 Temperature Pulse Rate 52 L 47 L 43 L Respiratory 18 18 19 Rate Respiratory 18 Rate [Face] Blood Pressure 129/81 130/87 135/91 O2 Sat by Pulse 96 97 100 Oximetry 07/24/16 07/24/16 07/25/16 23:21 23:30 00:00 Temperature 98.1 F Pulse Rate 43 L 43 L 41 L Respiratory 18 19 18 Rate Respiratory Rate [Face] Blood Pressure 135/91 139/91 146/96 O2 Sat by Pulse 98 97 99 Oximetry 07/25/16 07/25/16 07/25/16 00:20 00:30 01:00 Temperature Pulse Rate 42 L 41 L 42 L Respiratory 18 18 Rate Respiratory Rate [Face] Blood Pressure 140/93 149/94 143/93 O2 Sat by Pulse 97 98 97 Oximetry 07/25/16 07/25/16 07/25/16 01:30 02:00 02:30 Temperature Pulse Rate 42 L 42 L 44 L Respiratory 18 18 18 Rate Respiratory Rate [Face] Blood Pressure 145/93 146/95 135/89 O2 Sat by Pulse 97 97 97 Oximetry 07/25/16 07/25/16 07/25/16 03:01 03:30 03:37 Temperature Pulse Rate 87 56 L 49 L Respiratory 18 18 Rate Respiratory Rate [Face] Blood Pressure 146/95 119/73 119/73 O2 Sat by Pulse 90 100 95 Oximetry 07/25/16 07/25/16 07/25/16 04:00 04:20 04:30 Temperature Pulse Rate 46 L 44 L Respiratory 18 18 18 Rate Respiratory Rate [Face] Blood Pressure 122/79 127/80 O2 Sat by Pulse 95 95 Oximetry 07/25/16 07/25/16 07/25/16 04:35 04:47 05:00 Temperature 98.3 F Pulse Rate 44 L Respiratory 18 18 Rate Respiratory Rate [Face] Blood Pressure 133/84 O2 Sat by Pulse 97 Oximetry 07/25/16 07/25/16 07/25/16 05:30 06:00 06:30 Temperature Pulse Rate 43 L 42 L 41 L Respiratory 18 18 17 Rate Respiratory Rate [Face] Blood Pressure 142/88 133/86 139/84 O2 Sat by Pulse 99 99 97 Oximetry 07/25/16 07:00 Temperature Pulse Rate 40 L Respiratory 18 Rate Respiratory Rate [Face] Blood Pressure 146/90 O2 Sat by Pulse 99 Oximetry Constitutional: no acute distress, other (morbidly obese) Eyes: non-icteric ENT: oropharynx moist, other (ETT in position at 22) Neck: no lymphadenopathy, no JVD Ascultation: Bilateral: clear Cardiovascular: regular rate and rhythm Gastrointestinal: normoactive bowel sounds, non-distended Integumentary: normal Extremities: no cyanosis Neurologic: other (responsive RASS -0) CBC and BMP: 07/25/16 04:51 07/25/16 04:51 ABG, PT/INR, D-dimer: ABG POC ABG pH 7.431 (7.35-7.45) 07/25/16 05:41 POC ABG pCO2 36.4 (35-45) 07/25/16 05:41 POC ABG pO2 80 (80-105) 07/25/16 05:41 POC ABG HCO3 24.2 07/25/16 05:41 POC ABG Total CO2 25 07/25/16 05:41 POC ABG O2 Sat 96 07/25/16 05:41 Abnormal lab findings: Abnormal Labs 07/22/16 07/23/16 07/23/16 10:16 04:36 05:06 WBC 17.8 H Lymph % (Auto) [place] % (Auto) Lymph # Jenkins # Seg Neutrophils % Lymphocytes % (Manual) 1.0 L Seg Neutrophils # Seg Neutrophils # Man 16.6 H Lymphocytes # (Manual) 0.2 L POC ABG pO2 107 H 66 L Sodium Chloride Creatinine Glucose Albumin 07/23/16 07/24/16 07/25/16 05:06 04:03 04:51 WBC 14.5 H Lymph % (Auto) 5.1 L Jenkins % (Auto) 8.0 H Lymph # 0.7 L Jenkins # 1.2 H Seg Neutrophils % 86.9 H Lymphocytes % (Manual) Seg Neutrophils # 12.6 H Seg Neutrophils # Man Lymphocytes # (Manual) POC ABG pO2 77 L Sodium 146 H D Chloride 110.4 H Creatinine Glucose 140 H Albumin 3.7 L 07/25/16 04:51 WBC Lymph % (Auto) Jenkins % (Auto) Lymph # Jenkins # Seg Neutrophils % Lymphocytes % (Manual) Seg Neutrophils # Seg Neutrophils # Man Lymphocytes # (Manual) POC ABG pO2 Sodium Chloride 108.6 H Creatinine 0.6 L Glucose 121 H Albumin Chest x-ray: image reviewed
[2016-07-25] MEDS ORDERED: SIMPLE SYRUP FEEDTUBE PRN ×2 (08:34)
[2016-07-25] MEDS ORDERED: PANCREAZE DR 10,500 UNIT FEEDTUBE PRN (08:34)
[2016-07-25] MEDS ORDERED: SODIUM BICARBONATE FEEDTUBE PRN (08:34)
[2016-07-25] MEDS: D5NS 1,000 ML IV SCH ×2 (09:01→22:01)
[2016-07-25] MEDS: DILAUDID IV PRN ×4 (09:03→22:05)
[2016-07-25] MEDS: LOVENOX SUB-Q SCH (09:11)
[2016-07-25] MEDS: PEPCID IV SCH ×2 (09:11→22:04)
--- NOTE | 2016-07-25 10:50 | XRay Report ---
AP CHEST :07/25/16 CLINICAL: Intubated.Follow up respiratory failure. COMPARISON:Previous day. FINDINGS: The endotracheal tube is in satisfactory position. No other tubes or lines. Normal heart and pulmonary vessels. Lungs are normally expanded and clear. No pneumothorax. IMPRESSION: Normal chest.No change.
[2016-07-25 10:57] LABS: ISTAT Base Excess 0; ISTAT HCO3 25.5; ISTAT PCO2 48.5 (35-45); ISTAT PH 7.329 (7.35-7.45); ISTAT PO2 100 (80-105); ISTAT SO2 97; ISTAT TCO2 27
--- NOTE | 2016-07-25 14:53 | Progress Note ---
Assessment and Plan Assessment and plan: 1. Acute angioedema - Continue IV Steroids and Benadryl. 2. Acute Respiratory Failure from angioedema - Patient id on CPAP - Will be extubated if tolerated 3. Hyperglycemia- - likely from steroid, A1c 5.2 4. Leukocytosis - Likely steriod induced. - Trending down 5. Tracheal Aspirates sputum culture on 07/23/2016 results <10 squamous epithelial cells, <25 white blood cell and rare mixed usual respiratory josue. Culture in progress 6. Morbid Obesity - will address before discharge 7. DVT Prophylaxis - Lovanox 40mg subcutaneous po QD. History Interval history: Patient was seen and evaluated this morning, patient didn't have any new complaints, patient is CPAP, extubation trial, and discussed with her , she said she communicated with her in writing and patient understand what the said. Hospitalist Physical - Physical exam Narrative exam: Patient is on CPAP, shows mild lip swelling. The patient appeared well nourished and normally developed. Vital signs as documented. Head exam is unremarkable. No scleral icterus . Neck is without jugular venous distension, thyromegaly, or carotid bruits. Lungs significant for wheezing. Cardiac exam reveals regular rate and Rhythm. First and second heart sounds normal. No murmurs, rubs or gallops. Abdominal exam reveals normal bowel sounds, no masses, no organomegaly and no aortic enlargement. Extremities are nonedematous and both femoral and pedal pulses are normal. [employer]: Alert. No focal weakness. - Constitutional Vitals: Temp Pulse Resp BP Pulse Ox 98.3 F 88 14 126/79 99 07/25/16 04:35 07/25/16 12:45 07/25/16 12:00 07/25/16 12:00 07/25/16 13:14 General appearance: Present: no acute distress, well-nourished, obese, other ( intubate and vent supported) Results - Labs CBC & Chem 7: 07/25/16 04:51 07/25/16 04:51 Labs: Laboratory Last Values WBC 14.5 K/mm3 (4.5-11.0) H 07/25/16 04:51 RBC 4.22 M/mm3 (3.65-5.03) 07/25/16 04:51 Hgb 12.4 gm/dl (10.1-14.3) 07/25/16 04:51 Hct 38.0 % (30.3-42.9) 07/25/16 04:51 MCV 90 fl (79-97) 07/25/16 04:51 MCH 29 pg (28-32) 07/25/16 04:51 MCHC 33 % (30-34) 07/25/16 04:51 RDW 13.2 % (13.2-15.2) 07/25/16 04:51 Plt Count 291 K/mm3 (140-440) 07/25/16 04:51 Lymph % (Auto) 5.1 % (13.4-35.0) L 07/25/16 04:51 [place] % (Auto) 8.0 % (0.0-7.3) H 07/25/16 04:51 Eos % (Auto) 0.0 % (0.0-4.3) 07/25/16 04:51 Baso % (Auto) 0.0 % (0.0-1.8) 07/25/16 04:51 Lymph # 0.7 K/mm3 (1.2-5.4) L 07/25/16 04:51 [place] # 1.2 K/mm3 (0.0-0.8) H 07/25/16 04:51 Eos # 0.0 K/mm3 (0.0-0.4) 07/25/16 04:51 Baso # 0.0 K/mm3 (0.0-0.1) 07/25/16 04:51 Add Manual Diff Complete 07/23/16 05:06 Total Counted 100 07/23/16 05:06 Seg Neutrophils % 86.9 % (40.0-70.0) H 07/25/16 04:51 Band Neutrophils % 2.0 % 07/23/16 05:06 Lymphocytes % (Manual) 1.0 % (13.4-35.0) L 07/23/16 05:06 Reactive Lymphs % (Man) 0 % 07/23/16 05:06 Monocytes % (Manual) 4.0 % (0.0-7.3) 07/23/16 05:06 Eosinophils % (Manual) 0 % (0.0-4.3) 07/23/16 05:06 Metamyelocytes % 0 % 07/23/16 05:06 Myelocytes % 0 % 07/23/16 05:06 Promyelocytes % 0 % 07/23/16 05:06 Blast Cells % 0 % 07/23/16 05:06 Nucleated RBC % Not Reportable 07/23/16 05:06 Seg Neutrophils # 12.6 K/mm3 (1.8-7.7) H 07/25/16 04:51 Seg Neutrophils # Man 16.6 K/mm3 (1.8-7.7) H 07/23/16 05:06 Band Neutrophils # 0.4 K/mm3 07/23/16 05:06 Lymphocytes # (Manual) 0.2 K/mm3 (1.2-5.4) L 07/23/16 05:06 Abs React Lymphs (Man) 0.0 K/mm3 07/23/16 05:06 Monocytes # (Manual) 0.7 K/mm3 (0.0-0.8) 07/23/16 05:06 Eosinophils # (Manual) 0.0 K/mm3 (0.0-0.4) 07/23/16 05:06 Basophils # (Manual) 0.0 K/mm3 (0.0-0.1) 07/23/16 05:06 Metamyelocytes # 0.0 K/mm3 07/23/16 05:06 Myelocytes # 0.0 K/mm3 07/23/16 05:06 Promyelocytes # 0.0 K/mm3 07/23/16 05:06 Blast Cells # 0.0 K/mm3 07/23/16 05:06 WBC Morphology Not Reportable 07/23/16 05:06 Hypersegmented Neuts Not Reportable 07/23/16 05:06 Hyposegmented Neuts Not Reportable 07/23/16 05:06 Hypogranular Neuts Not Reportable 07/23/16 05:06 Smudge Cells Not Reportable 07/23/16 05:06 Toxic Granulation Not Reportable 07/23/16 05:06 Toxic Vacuolation Not Reportable 07/23/16 05:06 Dohle Bodies Not Reportable 07/23/16 05:06 Pelger-Huet Anomaly Not Reportable 07/23/16 05:06 Rhys Rods Not Reportable 07/23/16 05:06 Platelet Estimate Appears normal 07/23/16 05:06 Clumped Platelets Not Reportable 07/23/16 05:06 Plt Clumps, EDTA Not Reportable 07/23/16 05:06 Large Platelets Not Reportable 07/23/16 05:06 Giant Platelets Not Reportable 07/23/16 05:06 Platelet Satelliting Not Reportable 07/23/16 05:06 Plt Morphology Comment Not Reportable 07/23/16 05:06 RBC Morphology Normal 07/23/16 05:06 Dimorphic RBCs Not Reportable 07/23/16 05:06 Polychromasia Not Reportable 07/23/16 05:06 Hypochromasia Not Reportable 07/23/16 05:06 Poikilocytosis Not Reportable 07/23/16 05:06 Anisocytosis Not Reportable 07/23/16 05:06 Microcytosis Not Reportable 07/23/16 05:06 Macrocytosis Not Reportable 07/23/16 05:06 Spherocytes Not Reportable 07/23/16 05:06 Pappenheimer Bodies Not Reportable 07/23/16 05:06 Sickle Cells Not Reportable 07/23/16 05:06 Target Cells Not Reportable 07/23/16 05:06 Tear Drop Cells Not Reportable 07/23/16 05:06 Ovalocytes Not Reportable 07/23/16 05:06 Helmet Cells Not Reportable 07/23/16 05:06 Kwan-[place] Bodies Not Reportable 07/23/16 05:06 [place] Rings Not Reportable 07/23/16 05:06 Ev Cells Not Reportable 07/23/16 05:06 Bite Cells Not Reportable 07/23/16 05:06 Crenated Cell Not Reportable 07/23/16 05:06 Elliptocytes Not Reportable 07/23/16 05:06 Acanthocytes (Spur) Not Reportable 07/23/16 05:06 Rouleaux Not Reportable 07/23/16 05:06 Hemoglobin C Crystals Not Reportable 07/23/16 05:06 Schistocytes Not Reportable 07/23/16 05:06 Malaria parasites Not Reportable 07/23/16 05:06 Binu Bodies Not Reportable 07/23/16 05:06 Hem Pathologist Commnt No 07/23/16 05:06 POC ABG pH 7.329 (7.35-7.45) L 07/25/16 10:49 POC ABG pCO2 48.5 (35-45) H 07/25/16 10:49 POC ABG pO2 100 (80-105) 07/25/16 10:49 POC ABG HCO3 25.5 07/25/16 10:49 POC ABG Total CO2 27 07/25/16 10:49 POC ABG O2 Sat 97 07/25/16 10:49 POC ABG Base Excess 0 07/25/16 10:49 FiO2 30 % 07/25/16 10:49 Sodium 145 mmol/L (137-145) 07/25/16 04:51 Potassium 4.0 mmol/L (3.6-5.0) 07/25/16 04:51 Chloride 108.6 mmol/L (98-107) H 07/25/16 04:51 Carbon Dioxide 23 mmol/L (22-30) 07/25/16 04:51 Anion Gap 17 mmol/L 07/25/16 04:51 BUN 12 mg/dL (7-17) 07/25/16 04:51 Creatinine 0.6 mg/dL (0.7-1.2) L 07/25/16 04:51 Estimated GFR > 60 ml/min 07/25/16 04:51 BUN/Creatinine Ratio 20.00 % 07/25/16 04:51 Glucose 121 mg/dL (65-100) H 07/25/16 04:51 Hemoglobin A1c 5.2 % (4-6) 07/23/16 05:06 Calcium 8.6 mg/dL (8.4-10.2) 07/25/16 04:51 Total Bilirubin 0.2 mg/dL (0.1-1.2) 07/23/16 05:06 AST 14 units/L (5-40) 07/23/16 05:06 ALT 13 units/L (7-56) 07/23/16 05:06 Alkaline Phosphatase 60 units/L (35-129) 07/23/16 05:06 Total Protein 6.5 g/dL (6.3-8.2) 07/23/16 05:06 Albumin 3.7 g/dL (3.9-5) L 07/23/16 05:06 Albumin/Globulin Ratio 1.3 % 07/23/16 05:06
[2016-07-26] MEDS: DILAUDID IV PRN ×5 (01:35→19:44)
[2016-07-26] MEDS: BENADRYL IV SCH ×2 (04:14→10:30)
[2016-07-26 04:55] LABS: Basophils % (Auto) 0.1 % (0.0-1.8); Hematocrit 38.1 % (30.3-42.9); Hemoglobin 12.4 gm/dl (10.1-14.3); Mean Corpuscular HGB Conc 33 % (30-34); Mean Corpuscular Hemoglobin 29 pg (28-32); Mean Corpuscular Volume 89 fl (79-97); Platelet Count 292 K/mm3 (140-440); Red Blood Count 4.28 M/mm3 (3.65-5.03); Red Cell Distribution Width 13.1 % (13.2-15.2); White Blood Count 13.2 K/mm3 (4.5-11.0)
[2016-07-26 05:15] LABS: Anion Gap 17 mmol/L; Blood Urea Nitrogen 15 mg/dL (7-17); Calcium 8.3 mg/dL (8.4-10.2); Carbon Dioxide 25 mmol/L (22-30); Chloride 104.5 mmol/L (98-107); Glucose 116 mg/dL (65-100); Potassium 4.1 mmol/L (3.6-5.0); Sodium 142 mmol/L (137-145)
--- NOTE | 2016-07-26 07:35 | XRay Report ---
AP CHEST: HISTORY: Followup respiratory failure The patient has been extubated since yesterday's exam. AP view of the chest demonstrates a normal mediastinal and cardiac contour with clear lungs and normal bony and soft tissue structures. IMPRESSION: Unremarkable AP chest.
--- NOTE | 2016-07-26 09:50 | Progress Note ---
Assessment and Plan Acute angioedema Acute respiratory failure due to the above. 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 No respiratory problems overnight or done hoarseness noted after extubation. No active expectoration. Just swallow Ice chips without problems. Hungry. Cannot recall any specific exposure to any agents before the luis angioedema episode Objective Vital Signs - 12hr 07/25/16 07/25/16 07/25/16 22:00 22:11 22:30 Temperature Pulse Rate 50 L 48 L 48 L Pulse Rate [ From Monitor] Respiratory 18 19 16 Rate Blood Pressure 123/77 123/77 118/80 O2 Sat by Pulse 96 96 96 Oximetry 07/25/16 07/25/16 07/25/16 22:38 23:00 23:30 Temperature Pulse Rate 45 L 49 L Pulse Rate [ From Monitor] Respiratory 16 11 L 14 Rate Blood Pressure 130/82 124/77 O2 Sat by Pulse 97 94 95 Oximetry 07/26/16 07/26/16 07/26/16 00:00 00:30 01:00 Temperature Pulse Rate 60 47 L 49 L Pulse Rate [ From Monitor] Respiratory 15 20 16 Rate Blood Pressure 121/81 122/84 119/73 O2 Sat by Pulse 96 96 96 Oximetry 07/26/16 07/26/16 07/26/16 01:30 02:01 02:30 Temperature Pulse Rate 50 L 52 L 51 L Pulse Rate [ From Monitor] Respiratory 18 10 L 18 Rate Blood Pressure 128/83 134/82 121/78 O2 Sat by Pulse 96 98 95 Oximetry 07/26/16 07/26/16 07/26/16 03:00 03:30 04:00 Temperature Pulse Rate 50 L 48 L Pulse Rate [ 60 From Monitor] Respiratory 16 15 17 Rate Blood Pressure 121/77 123/77 O2 Sat by Pulse 95 96 96 Oximetry 07/26/16 07/26/16 07/26/16 04:01 04:13 04:30 Temperature Pulse Rate 50 L 46 L Pulse Rate [ From Monitor] Respiratory 14 15 17 Rate Blood Pressure 132/86 134/87 O2 Sat by Pulse 100 97 Oximetry 07/26/16 07/26/16 07/26/16 05:00 05:30 08:00 Temperature 98.0 F Pulse Rate 52 L 53 L Pulse Rate [ From Monitor] Respiratory 21 18 Rate Blood Pressure 128/74 121/75 O2 Sat by Pulse 97 94 Oximetry 07/26/16 08:30 Temperature Pulse Rate Pulse Rate [ From Monitor] Respiratory 16 Rate Blood Pressure O2 Sat by Pulse Oximetry Constitutional: no acute distress, alert, other (morbidly obese) Eyes: non-icteric ENT: oropharynx moist, other (no stridor. Some hoarseness noted) Neck: no lymphadenopathy, no JVD Ascultation: Bilateral: clear Cardiovascular: regular rate and rhythm Gastrointestinal: normoactive bowel sounds, non-distended Integumentary: normal Extremities: no cyanosis Neurologic: normal mental status, non-focal exam, pupils equal and round, CN II- XII normal CBC and BMP: 07/26/16 04:37 07/26/16 04:37 ABG, PT/INR, D-dimer: ABG POC ABG pH 7.329 (7.35-7.45) L 07/25/16 10:49 POC ABG pCO2 48.5 (35-45) H 07/25/16 10:49 POC ABG pO2 100 (80-105) 07/25/16 10:49 POC ABG HCO3 25.5 07/25/16 10:49 POC ABG Total CO2 27 07/25/16 10:49 POC ABG O2 Sat 97 07/25/16 10:49 Abnormal lab findings: Abnormal Labs 07/22/16 07/23/16 07/23/16 10:16 04:36 05:06 WBC 17.8 H RDW Lymph % (Auto) [place] % (Auto) Lymph # [place] # Seg Neutrophils % Lymphocytes % (Manual) 1.0 L Seg Neutrophils # Seg Neutrophils # Man 16.6 H Lymphocytes # (Manual) 0.2 L POC ABG pH POC ABG pCO2 POC ABG pO2 107 H 66 L Sodium Chloride Creatinine Glucose Calcium Albumin 07/23/16 07/24/16 07/25/16 05:06 04:03 04:51 WBC 14.5 H RDW Lymph % (Auto) 5.1 L [place] % (Auto) 8.0 H Lymph # 0.7 L [place] # 1.2 H Seg Neutrophils % 86.9 H Lymphocytes % (Manual) Seg Neutrophils # 12.6 H Seg Neutrophils # Man Lymphocytes # (Manual) POC ABG pH POC ABG pCO2 POC ABG pO2 77 L Sodium 146 H D Chloride 110.4 H Creatinine Glucose 140 H Calcium Albumin 3.7 L 07/25/16 07/25/16 07/26/16 04:51 10:49 04:37 WBC 13.2 H RDW 13.1 L Lymph % (Auto) 8.0 L [place] % (Auto) 8.2 H Lymph # 1.0 L [place] # 1.1 H Seg Neutrophils % 83.7 H Lymphocytes % (Manual) Seg Neutrophils # 11.0 H Seg Neutrophils # Man Lymphocytes # (Manual) POC ABG pH 7.329 L POC ABG pCO2 48.5 H POC ABG pO2 Sodium Chloride 108.6 H Creatinine 0.6 L Glucose 121 H Calcium Albumin 07/26/16 04:37 WBC RDW Lymph % (Auto) [place] % (Auto) Lymph # [place] # Seg Neutrophils % Lymphocytes % (Manual) Seg Neutrophils # Seg Neutrophils # Man Lymphocytes # (Manual) POC ABG pH POC ABG pCO2 POC ABG pO2 Sodium Chloride Creatinine 0.6 L Glucose 116 H Calcium 8.3 L Albumin
[2016-07-26] MEDS: PEPCID IV SCH (10:28)
[2016-07-26] MEDS: LOVENOX SUB-Q SCH (10:28)
[2016-07-26] MEDS ORDERED: CHLORASEPTIC MM PRN (11:27)
--- NOTE | 2016-07-26 13:28 | Progress Note ---
Assessment and Plan Assessment and plan: 1. Acute angioedema - Continue IV Steroids and Benadryl. 2. Acute Respiratory Failure from angioedema - isextubated and breathing ok - Will be extubated if tolerated 3. Hyperglycemia- - likely from steroid, A1c 5.2 4. Leukocytosis - Likely steriod induced. - Trending down 5. Tracheal Aspirates sputum culture on 07/23/2016 results <10 squamous epithelial cells, <25 white blood cell and rare mixed usual respiratory josue. Culture in progress 6. Morbid Obesity - will address before discharge 7. DVT Prophylaxis - Lovanox 40mg subcutaneous po QD. Disposition: transfer her to the floor. History Interval history: Patient was seen and evaluated this morning, patient is extubated and breathing well. Hoarseness of voice likely from intubation. Hospitalist Physical - Physical exam Narrative exam: Patient is not in cardiopulmonary distress. The patient appeared well nourished and normally developed. Vital signs as documented. Head exam is unremarkable. No scleral icterus . Neck is without jugular venous distension, thyromegaly, or carotid bruits. Lungs clear to auscultation bilaterally. Cardiac exam reveals regular rate and Rhythm. First and second heart sounds normal. No murmurs, rubs or gallops. Abdominal exam reveals normal bowel sounds, no masses, no organomegaly and no aortic enlargement. Extremities are nonedematous and both femoral and pedal pulses are normal. [employer]: Alert. No focal weakness. - Constitutional Vitals: Temp Pulse Resp BP Pulse Ox 98.2 F 45 L 16 131/89 99 07/26/16 12:00 07/26/16 10:31 07/26/16 10:31 07/26/16 10:31 07/26/16 10:33 General appearance: Present: no acute distress, well-nourished, obese, other ( intubate and vent supported) Results - Labs CBC & Chem 7: 07/26/16 04:37 07/26/16 04:37 Labs: Laboratory Last Values WBC 13.2 K/mm3 (4.5-11.0) H 07/26/16 04:37 RBC 4.28 M/mm3 (3.65-5.03) 07/26/16 04:37 Hgb 12.4 gm/dl (10.1-14.3) 07/26/16 04:37 Hct 38.1 % (30.3-42.9) 07/26/16 04:37 MCV 89 fl (79-97) 07/26/16 04:37 MCH 29 pg (28-32) 07/26/16 04:37 MCHC 33 % (30-34) 07/26/16 04:37 RDW 13.1 % (13.2-15.2) L 07/26/16 04:37 Plt Count 292 K/mm3 (140-440) 07/26/16 04:37 Lymph % (Auto) 8.0 % (13.4-35.0) L 07/26/16 04:37 [place] % (Auto) 8.2 % (0.0-7.3) H 07/26/16 04:37 Eos % (Auto) 0.0 % (0.0-4.3) 07/26/16 04:37 Baso % (Auto) 0.1 % (0.0-1.8) 07/26/16 04:37 Lymph # 1.0 K/mm3 (1.2-5.4) L 07/26/16 04:37 [place] # 1.1 K/mm3 (0.0-0.8) H 07/26/16 04:37 Eos # 0.0 K/mm3 (0.0-0.4) 07/26/16 04:37 Baso # 0.0 K/mm3 (0.0-0.1) 07/26/16 04:37 Add Manual Diff Complete 07/23/16 05:06 Total Counted 100 07/23/16 05:06 Seg Neutrophils % 83.7 % (40.0-70.0) H 07/26/16 04:37 Band Neutrophils % 2.0 % 07/23/16 05:06 Lymphocytes % (Manual) 1.0 % (13.4-35.0) L 07/23/16 05:06 Reactive Lymphs % (Man) 0 % 07/23/16 05:06 Monocytes % (Manual) 4.0 % (0.0-7.3) 07/23/16 05:06 Eosinophils % (Manual) 0 % (0.0-4.3) 07/23/16 05:06 Metamyelocytes % 0 % 07/23/16 05:06 Myelocytes % 0 % 07/23/16 05:06 Promyelocytes % 0 % 07/23/16 05:06 Blast Cells % 0 % 07/23/16 05:06 Nucleated RBC % Not Reportable 07/23/16 05:06 Seg Neutrophils # 11.0 K/mm3 (1.8-7.7) H 07/26/16 04:37 Seg Neutrophils # Man 16.6 K/mm3 (1.8-7.7) H 07/23/16 05:06 Band Neutrophils # 0.4 K/mm3 07/23/16 05:06 Lymphocytes # (Manual) 0.2 K/mm3 (1.2-5.4) L 07/23/16 05:06 Abs React Lymphs (Man) 0.0 K/mm3 07/23/16 05:06 Monocytes # (Manual) 0.7 K/mm3 (0.0-0.8) 07/23/16 05:06 Eosinophils # (Manual) 0.0 K/mm3 (0.0-0.4) 07/23/16 05:06 Basophils # (Manual) 0.0 K/mm3 (0.0-0.1) 07/23/16 05:06 Metamyelocytes # 0.0 K/mm3 07/23/16 05:06 Myelocytes # 0.0 K/mm3 07/23/16 05:06 Promyelocytes # 0.0 K/mm3 07/23/16 05:06 Blast Cells # 0.0 K/mm3 07/23/16 05:06 WBC Morphology Not Reportable 07/23/16 05:06 Hypersegmented Neuts Not Reportable 07/23/16 05:06 Hyposegmented Neuts Not Reportable 07/23/16 05:06 Hypogranular Neuts Not Reportable 07/23/16 05:06 Smudge Cells Not Reportable 07/23/16 05:06 Toxic Granulation Not Reportable 07/23/16 05:06 Toxic Vacuolation Not Reportable 07/23/16 05:06 Dohle Bodies Not Reportable 07/23/16 05:06 Pelger-Huet Anomaly Not Reportable 07/23/16 05:06 Rhys Rods Not Reportable 07/23/16 05:06 Platelet Estimate Appears normal 07/23/16 05:06 Clumped Platelets Not Reportable 07/23/16 05:06 Plt Clumps, EDTA Not Reportable 07/23/16 05:06 Large Platelets Not Reportable 07/23/16 05:06 Giant Platelets Not Reportable 07/23/16 05:06 Platelet Satelliting Not Reportable 07/23/16 05:06 Plt Morphology Comment Not Reportable 07/23/16 05:06 RBC Morphology Normal 07/23/16 05:06 Dimorphic RBCs Not Reportable 07/23/16 05:06 Polychromasia Not Reportable 07/23/16 05:06 Hypochromasia Not Reportable 07/23/16 05:06 Poikilocytosis Not Reportable 07/23/16 05:06 Anisocytosis Not Reportable 07/23/16 05:06 Microcytosis Not Reportable 07/23/16 05:06 Macrocytosis Not Reportable 07/23/16 05:06 Spherocytes Not Reportable 07/23/16 05:06 Pappenheimer Bodies Not Reportable 07/23/16 05:06 Sickle Cells Not Reportable 07/23/16 05:06 Target Cells Not Reportable 07/23/16 05:06 Tear Drop Cells Not Reportable 07/23/16 05:06 Ovalocytes Not Reportable 07/23/16 05:06 Helmet Cells Not Reportable 07/23/16 05:06 Kwan-[employer] Bodies Not Reportable 07/23/16 05:06 [place] Rings Not Reportable 07/23/16 05:06 Ev Cells Not Reportable 07/23/16 05:06 Bite Cells Not Reportable 07/23/16 05:06 Crenated Cell Not Reportable 07/23/16 05:06 Elliptocytes Not Reportable 07/23/16 05:06 Acanthocytes (Spur) Not Reportable 07/23/16 05:06 Rouleaux Not Reportable 07/23/16 05:06 Hemoglobin C Crystals Not Reportable 07/23/16 05:06 Schistocytes Not Reportable 07/23/16 05:06 Malaria parasites Not Reportable 07/23/16 05:06 Binu Bodies Not Reportable 07/23/16 05:06 Hem Pathologist Commnt No 07/23/16 05:06 POC ABG pH 7.329 (7.35-7.45) L 07/25/16 10:49 POC ABG pCO2 48.5 (35-45) H 07/25/16 10:49 POC ABG pO2 100 (80-105) 07/25/16 10:49 POC ABG HCO3 25.5 07/25/16 10:49 POC ABG Total CO2 27 07/25/16 10:49 POC ABG O2 Sat 97 07/25/16 10:49 POC ABG Base Excess 0 07/25/16 10:49 FiO2 30 % 07/25/16 10:49 Sodium 142 mmol/L (137-145) 07/26/16 04:37 Potassium 4.1 mmol/L (3.6-5.0) 07/26/16 04:37 Chloride 104.5 mmol/L (98-107) 07/26/16 04:37 Carbon Dioxide 25 mmol/L (22-30) 07/26/16 04:37 Anion Gap 17 mmol/L 07/26/16 04:37 BUN 15 mg/dL (7-17) 07/26/16 04:37 Creatinine 0.6 mg/dL (0.7-1.2) L 07/26/16 04:37 Estimated GFR > 60 ml/min 07/26/16 04:37 BUN/Creatinine Ratio 25.00 % 07/26/16 04:37 Glucose 116 mg/dL (65-100) H 07/26/16 04:37 Hemoglobin A1c 5.2 % (4-6) 07/23/16 05:06 Calcium 8.3 mg/dL (8.4-10.2) L 07/26/16 04:37 Total Bilirubin 0.2 mg/dL (0.1-1.2) 07/23/16 05:06 AST 14 units/L (5-40) 07/23/16 05:06 ALT 13 units/L (7-56) 07/23/16 05:06 Alkaline Phosphatase 60 units/L (35-129) 07/23/16 05:06 Total Protein 6.5 g/dL (6.3-8.2) 07/23/16 05:06 Albumin 3.7 g/dL (3.9-5) L 07/23/16 05:06 Albumin/Globulin Ratio 1.3 % 07/23/16 05:06 Triglycerides 122 mg/dL (2-149) 07/25/16 04:51
[2016-07-26] MEDS: ZOFRAN IV PRN (19:44)
[2016-07-26] MEDS: PEPCID PO SCH (23:00)
[2016-07-27] MEDS: DILAUDID IV PRN ×3 (00:13→09:19)
[2016-07-27] MEDS: ZOFRAN IV PRN (05:09)
--- NOTE | 2016-07-27 09:27 | XRay Report ---
PORTABLE CHEST INDICATION: Follow up respiratory failure. COMPARISON: Yesterday. FINDINGS: Portable, frontal chest radiograph, 7:20 AM, 07/27/2016 again demonstrates mild exaggerated cardiomediastinal silhouette/possible cardiomegaly. Limited inspiration with slight atelectasis/crowded markings towards the lung bases. No large pleural effusions or CHF. Unremarkable bones. CONCLUSION: No significant acute chest process, as described. Thank you for the opportunity to participate in this patient's care.
--- NOTE | 2016-07-27 09:31 | Progress Note ---
Assessment and Plan Acute angioedema Acute respiratory failure due to the above. Extubated successfully Morbid obesity Rec She is scheduled to be seen by youth court judge next week. Per patient she already had IV allergy testing panel EpiPen pt to carry at discharge Can be started on loratadine 10 mg daily for additional protection ENT evaluation if hoarseness persists over 1-2 weeks Plan of care discussed with patient ,hospitalist in detail. Will sign off. Subjective Date of service: 07/27/16 Principal diagnosis: acute respiratory failure from angioedema Interval history: No Respiratory complaints. She also hoarseness noted. Objective Vital Signs - 12hr 07/26/16 07/27/16 22:13 07:57 Temperature 99.1 F 97.8 F Pulse Rate [ 57 L Brachial] Pulse Rate [ 73 Left Dorsalis Pedis] Respiratory 18 18 Rate Blood Pressure 120/74 Blood Pressure 109/72 [Left Arm] O2 Sat by Pulse 92 95 Oximetry Constitutional: no acute distress, alert, other (morbidly obese) Eyes: non-icteric ENT: oropharynx moist, other (no stridor or visible edema on inspection) Neck: supple, no lymphadenopathy, no JVD Ascultation: Bilateral: clear Cardiovascular: regular rate and rhythm Gastrointestinal: normoactive bowel sounds, non-distended Integumentary: normal Extremities: no cyanosis Neurologic: normal mental status, non-focal exam, pupils equal and round, CN II- XII normal CBC and BMP: 07/26/16 04:37 07/26/16 04:37 ABG, PT/INR, D-dimer: ABG POC ABG pH 7.329 (7.35-7.45) L 07/25/16 10:49 POC ABG pCO2 48.5 (35-45) H 07/25/16 10:49 POC ABG pO2 100 (80-105) 07/25/16 10:49 POC ABG HCO3 25.5 07/25/16 10:49 POC ABG Total CO2 27 07/25/16 10:49 POC ABG O2 Sat 97 07/25/16 10:49 Abnormal lab findings: Abnormal Labs 07/22/16 07/23/16 07/23/16 10:16 04:36 05:06 WBC 17.8 H RDW Lymph % (Auto) Early % (Auto) Lymph # Early # Seg Neutrophils % Lymphocytes % (Manual) 1.0 L Seg Neutrophils # Seg Neutrophils # Man 16.6 H Lymphocytes # (Manual) 0.2 L POC ABG pH POC ABG pCO2 POC ABG pO2 107 H 66 L Sodium Chloride Creatinine Glucose Calcium Albumin 07/23/16 07/24/16 07/25/16 05:06 04:03 04:51 WBC 14.5 H RDW Lymph % (Auto) 5.1 L Early % (Auto) 8.0 H Lymph # 0.7 L Early # 1.2 H Seg Neutrophils % 86.9 H Lymphocytes % (Manual) Seg Neutrophils # 12.6 H Seg Neutrophils # Man Lymphocytes # (Manual) POC ABG pH POC ABG pCO2 POC ABG pO2 77 L Sodium 146 H D Chloride 110.4 H Creatinine Glucose 140 H Calcium Albumin 3.7 L 07/25/16 07/25/16 07/26/16 04:51 10:49 04:37 WBC 13.2 H RDW 13.1 L Lymph % (Auto) 8.0 L Early % (Auto) 8.2 H Lymph # 1.0 L Early # 1.1 H Seg Neutrophils % 83.7 H Lymphocytes % (Manual) Seg Neutrophils # 11.0 H Seg Neutrophils # Man Lymphocytes # (Manual) POC ABG pH 7.329 L POC ABG pCO2 48.5 H POC ABG pO2 Sodium Chloride 108.6 H Creatinine 0.6 L Glucose 121 H Calcium Albumin 07/26/16 04:37 WBC RDW Lymph % (Auto) Early % (Auto) Lymph # Early # Seg Neutrophils % Lymphocytes % (Manual) Seg Neutrophils # Seg Neutrophils # Man Lymphocytes # (Manual) POC ABG pH POC ABG pCO2 POC ABG pO2 Sodium Chloride Creatinine 0.6 L Glucose 116 H Calcium 8.3 L Albumin
--- NOTE | 2016-07-27 09:33 | Discharge Summary ---
Providers - Providers Date of Admission: 07/22/16 09:48 Date of discharge: 07/27/16 Attending physician: KEEGAN BOWEN MD 07/22/16 10:21 Consult to Dietitian/Nutrition [CONS] Routine Physician Instructions: Reason For Exam: Reason for Consult: Nutrition Recommendations Reason for Consult: Write/Manage Tube Feeding Primary care physician: UNISHEAR OPERATOR Hospitalization Reason for admission: Idiopathic angioedema Condition: Stable Hospital course: Discharge Diagnosis - Idiopathic angioedema - Acute respiratory failure Disposition: DISCHARGED TO HOME OR SELFCARE Time spent for discharge: 31 minutes Core Measure Documentation - Palliative Care Palliative Care/ Comfort Measures: Not Applicable - Core Measures Any of the following diagnoses?: none Exam - Physical Exam Narrative exam: Patient is not in cardiopulmonary distress. No stridor, but hoarse voice. The patient appeared well nourished and normally developed. Vital signs as documented. Head exam is unremarkable. No scleral icterus . Neck is without jugular venous distension, thyromegaly, or carotid bruits. Lungs clear to auscultation bilaterally. Cardiac exam reveals regular rate and Rhythm. First and second heart sounds normal. No murmurs, rubs or gallops. Abdominal exam reveals normal bowel sounds, no masses, no organomegaly and no aortic enlargement. Extremities are nonedematous and both femoral and pedal pulses are normal. PAINTER ASSISTANT: Alert. No focal weakness. - Constitutional Vitals: Temp Pulse Resp BP Pulse Ox 97.8 F 73 18 109/72 95 07/27/16 07:57 07/27/16 07:57 07/27/16 07:57 07/27/16 07:57 07/27/16 07:57 Plan Activity: no restrictions Weight Bearing Status: Full Weight Bearing Diet: low fat Follow up with: PRIMARY MD ADAL [Primary Care Provider] - 3-5 Days (Keep the scheduled appointment with project leader.) Prescriptions: EPINEPHrine [Epipen 2-Matt] 0.3 mg IM PRN #1 ml HYDROcodone/APAP 5-325 [[place] 5/325] 1 each PO Q4HR PRN #12 tablet PRN Reason: Pain Loratadine 10 mg PO DAILY #10 tablet Phenol 1.4% [Chloraseptic] 1 spray MM Q4H PRN #1 bottle PRN Reason: Sore Throat predniSONE [Deltasone] 10 mg PO .TAPER #21 tab
[2016-07-27] MEDS ORDERED: DELTASONE PO SCH (10:00)
[2016-07-27] MEDS: LOVENOX SUB-Q SCH (10:15)
[2016-07-27] MEDS: PEPCID PO SCH (10:16)
[2016-07-27 13:11] VITALS: BP 125/83
[2016-07-28] MEDS ORDERED: DELTASONE PO SCH (10:00)
[2016-07-29] MEDS ORDERED: DELTASONE PO SCH (10:00)
[2016-07-30] MEDS ORDERED: DELTASONE PO SCH (10:00)
[2016-07-31] MEDS ORDERED: DELTASONE PO SCH (10:00)
[2016-08-01] MEDS ORDERED: DELTASONE PO SCH (10:00)
== END 2016-07-27 13:30 | disposition home or self-care (01) | DRG 208 ==
LOC: ED 05:18 → CC1 09:48 → 3A 07-26 17:09
PROVIDERS: ADMIT Internal Medicine; ATTEND Internal Medicine
PROC: 4A033R1 Measurement of Arterial Saturation, Peripheral, Percutaneous Approach (ICD-10-PCS; principal; 2016-07-22)
PROC: 5A1945Z Respiratory Ventilation, 24-96 Consecutive Hours (ICD-10-PCS; 2016-07-22)
PROC: 0BH17EZ Insertion of Endotracheal Airway into Trachea, Via Natural or Artificial Opening (ICD-10-PCS; 2016-07-22)
DX: J96.00 Acute respiratory failure, unspecified whether with hypoxia or hypercapnia (principal); T78.3XXA Angioneurotic edema, initial encounter; E87.0 Hyperosmolality and hypernatremia; F17.210 Nicotine dependence, cigarettes, uncomplicated; R73.9 Hyperglycemia, unspecified; D72.829 Elevated white blood cell count, unspecified; F10.10 Alcohol abuse, uncomplicated; E66.01 Morbid (severe) obesity due to excess calories; Z68.35 Body mass index [BMI] 35.0-35.9, adult; Z88.6 Allergy status to analgesic agent
CPT/HCPCS: 36415; 36600; 51702; 71010; 80048; 80053; 82803; 83036; 84478; 85007; 85025; 87070; 87205; 94002; 94003; 94640; 94760; 96372; 96374; 96375; 99406; J0171; J0330; J1100; J1170; J1200; J1650; J2250; J2405; J2704; J2920; J2930; J3010; J7042; J7512

== ENCOUNTER 2016-09-02 21:57 | Emergency (ER) | payer SELFPAY ==
[2016-09-02 22:33] VITALS: BP 125/85
[2016-09-02] MEDS ORDERED: MARCAINE-EPI 0.5%-1:200,000 INFILTRATI ONE (23:04)
[2016-09-02] MEDS ORDERED: MOTRIN PO ONE (23:04)
--- NOTE | 2016-09-02 23:14 | Emergency Department Report ---
- General Chief Complaint: Wound/Laceration Stated Complaint: L ELBOW LACERATION Time Seen by Provider: 09/02/16 22:53 Source: patient Mode of arrival: Ambulatory Limitations: No Limitations - History of Present Illness Initial Comments: This is a 25-year-old female well-nourished with nontoxic or ill in appearance that presents with a laceration to the left elbow. Patient stated was playing with her dog and when the dog jumped on her she fell down onto her left elbow. Patient stated something with an unknown object penetrated her left elbow. Patient denies bite wounds from the dog. Patient stated her last tetanus shot was in 2014. Patient denies any numbness or tingling sensation extremity, chest pain, shortness of breath, abdominal pain, nausea vomiting, headache. Patient denies any head trauma. Denies dizziness. Allergies to codeine and morphine. -: This evening (930 pm) Location: other (left elbow) Extremity Location: Left: Elbow 1 - [address]: outdoors Patient Tetanus UTD: Yes (2014) Context: accidental Associated Symptoms: pain, suspect foreign body present (as per patient). denies: loss of feeling/numbness, unable to move injured part, weakness followed by dizziness, nausea/vomiting, fever - Related Data Previous Rx's Medication Instructions Recorded Last Taken Type EPINEPHrine [Epipen 2-Matt] 0.3 mg IM PRN #1 ml 07/27/16 Unknown Rx HYDROcodone/APAP 5-325 [[place] 1 each PO Q4HR PRN #12 tablet 07/27/16 Unknown Rx 5/325] Loratadine 10 mg PO DAILY #10 tablet 07/27/16 Unknown Rx Phenol 1.4% [Chloraseptic] 1 spray MM Q4H PRN #1 bottle 07/27/16 Unknown Rx predniSONE [Deltasone] 10 mg PO .TAPER #21 tab 07/27/16 Unknown Rx Cephalexin [Keflex] 500 mg PO Q12HR #10 cap 09/02/16 Unknown Rx Allergies Allergy/AdvReac Type Severity Reaction Status Date / Time codeine Allergy Nausea Verified 05/29/16 08:29 morphine Allergy Hives Verified 05/29/16 08:29 ED Review of Systems ROS: Stated complaint: L ELBOW LACERATION Other details as noted in HPI Constitutional: denies: chills, fever Eyes: denies: eye pain, eye discharge, vision change ENT: denies: ear pain, throat pain Respiratory: denies: cough, shortness of breath, wheezing Cardiovascular: denies: chest pain, palpitations Endocrine: no symptoms reported Gastrointestinal: denies: abdominal pain, nausea, diarrhea Genitourinary: denies: urgency, dysuria, discharge Musculoskeletal: denies: back pain, joint swelling, arthralgia Skin: denies: rash, lesions Neurological: denies: headache, weakness, paresthesias Psychiatric: denies: anxiety, depression Hematological/Lymphatic: denies: easy bleeding, easy bruising ED Past Medical Hx - Past Medical History Previous Medical History?: Yes Hx Arthritis: (bronchitis) Additional medical history: Fibroids in B breasts. BRONCHITIS - Social History Smoking Status: Unknown if ever smoked Substance Use Type: None - Medications Home Medications: Home Medications Medication Instructions Recorded Confirmed Last Taken Type EPINEPHrine [Epipen 2-Matt] 0.3 mg IM PRN #1 ml 07/27/16 Unknown Rx HYDROcodone/APAP 5-325 [[place] 1 each PO Q4HR PRN #12 tablet 07/27/16 Unknown Rx 5/325] Loratadine 10 mg PO DAILY #10 tablet 07/27/16 Unknown Rx Phenol 1.4% [Chloraseptic] 1 spray MM Q4H PRN #1 bottle 07/27/16 Unknown Rx predniSONE [Deltasone] 10 mg PO .TAPER #21 tab 07/27/16 Unknown Rx Cephalexin [Keflex] 500 mg PO Q12HR #10 cap 09/02/16 Unknown Rx ED Physical Exam - General Limitations: No Limitations General appearance: alert, in no apparent distress - Head Head exam: Present: atraumatic, normocephalic, normal inspection - Eye Eye exam: Present: normal appearance, PERRL, EOMI. Absent: scleral icterus, conjunctival injection, nystagmus, periorbital swelling, periorbital tenderness - ENT ENT exam: Present: normal exam, normal orophraynx, mucous membranes moist, TM's normal bilaterally, normal external ear exam - Neck Neck exam: Present: normal inspection, full ROM. Absent: tenderness, meningismus, lymphadenopathy, thyromegaly - Respiratory Respiratory exam: Present: normal lung sounds bilaterally. Absent: respiratory distress, wheezes, rales, rhonchi, stridor, chest wall tenderness, accessory muscle use, decreased breath sounds, prolonged expiratory - Cardiovascular Cardiovascular Exam: Present: regular rate, normal rhythm, normal heart sounds. Absent: bradycardia, tachycardia, irregular rhythm, systolic murmur, diastolic murmur, rubs, gallop - GI/Abdominal GI/Abdominal exam: Present: soft, normal bowel sounds. Absent: distended, tenderness, guarding, rebound, rigid, diminished bowel sounds, hyperactive bowel sounds, hypoactive bowel sounds - Extremities Exam Extremities exam: Present: normal inspection, full ROM, normal capillary refill. Absent: tenderness, pedal edema, joint swelling, calf tenderness - Expanded Upper Extremity Exam Left Shoulder Exam: Present: normal inspection, full ROM. Absent: tenderness, swelling, abrasion, laceration Upper Arm exam: Present: normal inspection, full ROM. Absent: tenderness, swelling, abrasion, laceration, ecchymosis Elbow exam: Present: normal inspection, full ROM, tenderness, laceration (1 cm) . Absent: swelling, abrasion, ecchymosis, deformity, crepidus, dislocation, erythema, effusion, pain w/ pronation/supination, tenderness over radial head Forearm Wrist exam: Present: normal inspection, full ROM. Absent: tenderness, swelling, abrasion, laceration Hand Wrist exam: Present: normal inspection, full ROM. Absent: tenderness, swelling Neuro motor exam: Present: wrist extension intact Neurosensory exam: Present: 2-point discrimination, radial nerve intact, ulnar nerve intact, median nerve intact Vascular: Present: vascular compromise - Back Exam Back exam: Present: normal inspection - Neurological Exam Neurological exam: Present: alert, oriented X3 - Psychiatric Psychiatric exam: Present: normal affect, normal mood - Skin Skin exam: Present: warm, dry, intact, normal color. Absent: rash ED Course Vital Signs 09/02/16 22:27 Temperature 98.3 F Pulse Rate 93 H Respiratory 20 Rate Blood Pressure 125/85 O2 Sat by Pulse 99 Oximetry - Laceration /Wound Repair Left Elbow Wound Location: upper extremity Wound's Depth, Shape: superficial Wound Explored: clean Irrigated w/ Saline (ccs): 3 Betadine Prep?: Yes Anesthesia: 0.5% Sensorcaine (with epi 1:200,000) Wound Debrided: minimal Wound Repaired With: sutures Suture Size/Type: 4:0, proline Number of Sutures: 1 Layer Closure?: No Sterile Dressing Applied?: Yes Progress: Under sterile field, eyes Betadine to prep the third digit. I used 20 mL to flush out the wound. I injected 3 mL of 0.5% Marcaine with epi 1-200,000 with 25-gauge 5/8 needle. I then used 4-0 Prolene to close the wound. Number stitches 2. I then applied sterile dressing to the area with tape. Patient did well. No signs of distress. No complications noted. ED Medical Decision Making - Medical Decision Making Ed course: This is a 25-year-old female that presents with a 1 cm in a laceration to the left elbow 1- after my physical exam, an x-ray of the left elbow has been obtained to rule out foreign body. 2- under sterile field, the 1 cm laceration has been sutured with 4-0 Prolene with a total of 2 stitches . 3- patient received Keflex by mouth at the time of discharge. 4- patient was instructed to return in 7 days for suture removal. 5- at time time of discharge, the patient does not seem toxic or ill in appearance. No acute signs of distress noted. Patient agrees to discharge treatment plan of care. No further questions noted by the patient. Critical care attestation.: If time is entered above; I have spent that time in minutes in the direct care of this critically ill patient, excluding procedure time. ED Disposition Clinical Impression: Laceration Disposition: DISCHARGED TO HOME OR SELFCARE Is pt being admited?: No Does the pt Need Aspirin: No Condition: Stable Instructions: Suture Care (ED), Laceration (ED) Additional Instructions: Take Keflex as prescribed and finished a course of antibiotics. Report back to the emergency room in 7 days for suture removal. Follow-up to her primary care doctor in 3-5 days or if signs and symptoms of infection such as pus, drainage, swelling, fever or chills or productive emergency room. Prescriptions: Cephalexin [Keflex] 500 mg PO Q12HR #10 cap Referrals: PRIMARY CARE, [Primary Care Provider] - 3-5 Days [facility] [Outside] - 3-[address] [facility] [place] [Outside] - 3-5 Days HOLLIE GRECO MD [Staff Physician] - 3-5 Days Forms: Work/School Release Form(ED)
--- NOTE | 2016-09-02 23:52 | XRay Report ---
FINAL REPORT PROCEDURE: XR ELBOW 3 LT TECHNIQUE: LEFT elbow radiographs, including AP, lateral, and oblique views. CPT 77461 HISTORY: trauma COMPARISON: No prior studies are available for comparison. FINDINGS: Fracture (s) and/or Dislocation(s): None . Alignment: Normal . Joint space(s): Normal . Soft tissues: Normal . Bone mineralization: Normal . Foreign bodies: None . IMPRESSION: Normal Examination
== END 2016-09-03 01:02 | disposition home or self-care (01) ==
LOC: ED 21:57
DX: S51.012A Laceration without foreign body of left elbow, initial encounter (principal); Z88.6 Allergy status to analgesic agent; W18.39XA Other fall on same level, initial encounter; Y93.89 Activity, other specified; Y99.8 Other external cause status; Y92.89 Other specified places as the place of occurrence of the external cause

== ENCOUNTER 2016-10-05 03:50 | Inpatient (IN) | payer SELFPAY ==
[2016-10-05] MEDS ORDERED: S2 RACEPINEPHRINE 2.25% IH ONE ×3 (04:00→04:06)
[2016-10-05] MEDS ORDERED: BENADRYL ONE (04:06)
[2016-10-05] MEDS ORDERED: PEPCID IV ONE ×2 (04:06→04:19)
[2016-10-05] MEDS ORDERED: NACL 0.9% 1000 ML 1,000 ML ONE (04:10)
[2016-10-05] MEDS ORDERED: ADRENALIN IM ONE (04:17)
--- NOTE | 2016-10-05 04:17 | Emergency Department Report ---
ED Allergic Reaction HPI - General Chief complaint: Allergic Reaction Stated complaint: ALLERGIC REACTION Time Seen by Provider: 10/05/16 04:12 Source: patient, family Mode of arrival: Ambulatory Limitations: No Limitations - History of Present Illness Initial Comments: Patient is a 25-year-old female with a history of prior allergic reaction intubation presenting with allergic reaction. Patient reports she was sleeping was awoken because an uncomfortable feeling in her mouth, tongue swelling, difficulty speaking. Patient reports this happened to her in July and she felt that she was allergic to peanuts. Patient was intubated at that time successfully extubated and discharged home. Patient reports today she had [employer] for dinner but cannot report any allergen exposure. Patient has no family history of angioedema, C1 esterase inhibitor deficiency, or blood pressure medication. Otherwise no other complaints - Related Data Home Medications Medication Instructions Recorded Confirmed Last Taken Cetirizine HCl [ZyrTEC] 10 mg PO DAILY 10/05/16 10/05/16 Unknown Gabapentin [Neurontin] 100 mg PO PRN PRN 10/05/16 10/05/16 Unknown Ranitidine HCl [Heartburn Relief] 75 mg PO DAILY 10/05/16 10/05/16 Unknown Allergies Allergy/AdvReac Type Severity Reaction Status Date / Time codeine Allergy Nausea Verified 05/29/16 08:29 morphine Allergy Hives Verified 05/29/16 08:29 peanut Allergy Angioedema Verified 10/05/16 03:57 ED Review of Systems ROS: Stated complaint: ALLERGIC REACTION Other details as noted in HPI Comment: All other systems reviewed and negative ED Past Medical Hx - Past Medical History Previous Medical History?: Yes Hx Arthritis: (bronchitis) Additional medical history: Fibroids in B breasts. BRONCHITIS - Surgical History Past Surgical History?: No - Social History Smoking Status: Current Every Day Smoker Substance Use Type: None - Medications Home Medications: Home Medications Medication Instructions Recorded Confirmed Last Taken Type Cetirizine HCl [ZyrTEC] 10 mg PO DAILY 10/05/16 10/05/16 Unknown History Gabapentin [Neurontin] 100 mg PO PRN PRN 10/05/16 10/05/16 Unknown History Ranitidine HCl [Heartburn Relief] 75 mg PO DAILY 10/05/16 10/05/16 Unknown History ED Physical Exam - General Limitations: No Limitations, Language Barrier (Swollen tongue) General appearance: alert, in distress - Head Head exam: Present: atraumatic, normocephalic - Eye Eye exam: Present: normal appearance, PERRL, EOMI Pupils: Present: normal accommodation - ENT ENT exam: Present: mucous membranes moist, other (Swollen tongue, airway is patent, 2mm diameter uvula, patient denies uvulectomy, tonsils are no enlarged, no pooling of secretions) - Neck Neck exam: Present: normal inspection, full ROM. Absent: tenderness, meningismus, lymphadenopathy - Respiratory Respiratory exam: Present: normal lung sounds bilaterally, other (garbled speech due to tongue swelling). Absent: respiratory distress, wheezes, rales, rhonchi, stridor - Cardiovascular Cardiovascular Exam: Present: regular rate, normal rhythm, normal heart sounds. Absent: tachycardia, systolic murmur, diastolic murmur, rubs, gallop - GI/Abdominal GI/Abdominal exam: Present: soft, normal bowel sounds - Extremities Exam Extremities exam: Present: normal inspection - Back Exam Back exam: Present: normal inspection - Neurological Exam Neurological exam: Present: alert, oriented X3 - Psychiatric Psychiatric exam: Present: normal affect, normal mood - Skin Skin exam: Present: warm, dry, intact, normal color. Absent: rash ED Course Vital Signs 10/05/16 10/05/16 10/05/16 03:57 04:08 04:10 Temperature 98.1 F Pulse Rate 86 Respiratory 22 Rate Blood Pressure 114/72 Blood Pressure [Left] O2 Sat by Pulse 99 100 100 Oximetry 10/05/16 10/05/16 10/05/16 04:20 04:30 04:40 Temperature Pulse Rate Respiratory Rate Blood Pressure 130/77 130/77 130/77 Blood Pressure [Left] O2 Sat by Pulse 99 98 99 Oximetry 10/05/16 10/05/16 10/05/16 04:48 04:50 05:00 Temperature Pulse Rate 78 Respiratory 14 Rate Blood Pressure 130/77 130/77 Blood Pressure 138/77 [Left] O2 Sat by Pulse 99 98 98 Oximetry 10/05/16 10/05/16 10/05/16 05:10 05:20 05:30 Temperature Pulse Rate Respiratory Rate Blood Pressure 102/56 102/56 102/56 Blood Pressure [Left] O2 Sat by Pulse 98 98 99 Oximetry 10/05/16 10/05/16 10/05/16 06:02 06:10 06:14 Temperature Pulse Rate 69 Respiratory 14 Rate Blood Pressure 102/56 111/66 Blood Pressure 111/66 [Left] O2 Sat by Pulse 98 97 99 Oximetry 10/05/16 10/05/16 10/05/16 06:26 06:30 06:40 Temperature Pulse Rate Respiratory Rate Blood Pressure 111/66 111/66 111/66 Blood Pressure [Left] O2 Sat by Pulse 98 96 97 Oximetry 10/05/16 10/05/16 10/05/16 06:50 07:00 07:10 Temperature Pulse Rate Respiratory Rate Blood Pressure 111/66 111/66 112/68 Blood Pressure [Left] O2 Sat by Pulse 97 96 96 Oximetry 10/05/16 10/05/16 10/05/16 07:20 07:30 07:40 Temperature Pulse Rate Respiratory Rate Blood Pressure 112/68 111/66 112/68 Blood Pressure [Left] O2 Sat by Pulse 96 96 96 Oximetry 10/05/16 10/05/16 10/05/16 07:50 08:00 08:10 Temperature Pulse Rate Respiratory Rate Blood Pressure 112/68 117/75 117/75 Blood Pressure [Left] O2 Sat by Pulse 97 94 92 Oximetry 10/05/16 10/05/16 10/05/16 08:20 08:30 08:40 Temperature Pulse Rate Respiratory Rate Blood Pressure 117/75 117/75 117/75 Blood Pressure [Left] O2 Sat by Pulse 91 92 91 Oximetry 10/05/16 10/05/16 10/05/16 08:50 09:00 09:10 Temperature Pulse Rate Respiratory Rate Blood Pressure 117/75 115/64 115/64 Blood Pressure [Left] O2 Sat by Pulse 95 95 93 Oximetry 10/05/16 10/05/16 10/05/16 09:20 09:30 10:30 Temperature 98.1 F Pulse Rate 78 Respiratory 14 Rate Blood Pressure 115/64 115/64 Blood Pressure 129/61 [Left] O2 Sat by Pulse 93 93 98 Oximetry 10/05/16 11:43 Temperature Pulse Rate 68 Respiratory 16 Rate Blood Pressure Blood Pressure 119/61 [Left] O2 Sat by Pulse 99 Oximetry ED Medical Decision Making - Lab Data Result diagrams: 10/05/16 04:15 10/05/16 04:15 - Radiology Data Radiology results: report reviewed Chest x-ray: Left lower lobe opacity Lateral neck x-ray: No acute findings - Medical Decision Making Pt seen immediately upon arrival Two large bore IV's placed 1L NS IVF Tele monitor Benadryl 50mg IVP Pepcid 40mg IVP Solumedrol 125mg IVP Racemic epi nebulized Epi 0.3mg of 1:1000 IM Pt reevaluated after all treatments at 0539: Pt reports no difference in tongue swelling, she denies any SOB or pooling of secretions. Pt's pharynx is patent no uvular swelling Case d/w hospitalist, patient to be admitted to ICU CXR reviewed for LL opacity, however patient does not exhibit fever or clinical signs of PNA, did not treat, rec repeat xray Critical Care Time: Yes (anaphylaxis) Critical care time in (mins) excluding proc time.: 30 Critical care attestation.: If time is entered above; I have spent that time in minutes in the direct care of this critically ill patient, excluding procedure time. Pt seen immediately upon arrival Two large bore IV's placed 1L NS IVF Tele monitor Benadryl 50mg IVP Pepcid 40mg IVP Solumedrol 125mg IVP Racemic epi nebulized Epi 0.3mg of 1:1000 IM ED Disposition Clinical Impression: Anaphylaxis, Tongue swelling Disposition: - OP ADMIT IP TO THIS HOSP Is pt being admited?: Yes Condition: Serious
[2016-10-05] MEDS ORDERED: BENADRYL IV ONE (04:19)
[2016-10-05] MEDS ORDERED: ADRENALIN ONE (04:19)
[2016-10-05] MEDS ORDERED: NACL 0.9% 1000 ML 1,000 ML IV ONE (04:19)
[2016-10-05] MEDS ORDERED: TORADOL IV ONE (05:38)
[2016-10-05] MEDS ORDERED: BENADRYL IV PRN (06:01)
[2016-10-05] MEDS ORDERED: ZOFRAN IV PRN (06:05)
[2016-10-05] MEDS ORDERED: TYLENOL PR PRN (06:06)
--- NOTE | 2016-10-05 06:12 | History and Physical Report ---
History of Present Illness Date of examination: 09/18/16 Date of admission: 10/05/16 Chief complaint: Chief complaint is swelling of the tongue History of present illness: History of present illness, patient is a 25-year-old female who started having swelling in the tongue early this morning, patient has had similar symptoms in the past which was caused by eating peanut but this time around she denied eating peanut. Patient said that she is having problems swallowing initially had difficulty with breathing which has eased off and there is no history of chest pain, no history of nausea or vomiting and no history of dizziness. Past History Past Medical History: other (ANAPHYLAXIS, ANGIOEDEMA) Past Surgical History: No surgical history Social history: no significant social history Medications and Allergies Allergies Allergy/AdvReac Type Severity Reaction Status Date / Time codeine Allergy Nausea Verified 05/29/16 08:29 morphine Allergy Hives Verified 05/29/16 08:29 peanut Allergy Angioedema Verified 10/05/16 03:57 Home Medications Medication Instructions Recorded Confirmed Last Taken Type EPINEPHrine [Epipen 2-Matt] 0.3 mg IM PRN #1 ml 07/27/16 Unknown Rx HYDROcodone/APAP 5-325 [[place]well 1 each PO Q4HR PRN #12 tablet 07/27/16 Unknown Rx 5/325] Loratadine 10 mg PO DAILY #10 tablet 07/27/16 Unknown Rx Phenol 1.4% [Chloraseptic] 1 spray MM Q4H PRN #1 bottle 07/27/16 Unknown Rx predniSONE [Deltasone] 10 mg PO .TAPER #21 tab 07/27/16 Unknown Rx Cephalexin [Keflex] 500 mg PO Q12HR #10 cap 09/02/16 Unknown Rx Active Meds: Active Medications Acetaminophen (Tylenol) 650 mg AR Q4H PRN PRN Reason: For Pain/Fever/Headache Diphenhydramine HCl (Benadryl) 25 mg IV Q6H PRN PRN Reason: Allergy Symptoms Heparin Sodium (Porcine) (Heparin) 5,000 unit SUB-Q Q12HR SLAVA Methylprednisolone Sodium Succinate (Solu-Medrol) 60 mg IV Q8H LSAVA Ondansetron HCl (Zofran) 4 mg IV Q6H PRN PRN Reason: Nausea And Vomiting Review of Systems Constitutional: no weight gain, no fever, no chills, no sweats, no night sweats , no anorexia, no fatigue, no weakness, no malaise, no lethargy, no poor appetite, no daytime sleepiness, no chronic pain Eyes: bilateral: other (NO BILATERAL EYE SYMPTOMS) Ears, nose, mouth and throat: dysphagia, swelling in mouth, no ear pain, no ear discharge, no tinnitis, no decreased hearing, no nose pain, no nasal congestion , no nasal discharge, no sinus pressure, no sinus pain, no bleeding gums, no dental pain, no mouth pain, no hoarseness, no sore throat, no swelling in throat , no odynophagia, no post-nasal drip, no headache, no vertigo, no pain front of neck, no neck fullness/pressure Breasts: deferred Cardiovascular: no chest pain, no orthopnea, no palpitations, no rapid/ irregular heart beat, no edema, no syncope, no lightheadedness, no shortness of breath, no paroxysmal nocturnal dyspnea, no claudication, no high blood pressure Respiratory: no cough, no cough with sputum, no excessive sputum, no hemoptysis , no shortness of breath, no dyspnea on exertion, no congestion, no wheezing, no pleurisy, no pain, no pain on inspiration, no respiratory infections, no home oxygen Gastrointestinal: no abdominal pain, no nausea, no vomiting, no melena, no hematochezia, no loss of appetite, no early satiety, no lactose intolerance Genitourinary Female: no dyspareunia, no urinary frequency, no urgency, no genital sores, no vaginal dryness, no decreased libido, no mood problems Menstruation: no ammenorrhea, no postmenopausal Rectal: no pain, no incontinence, no itching, no hemorrhoids, no flatulence Musculoskeletal: no neck stiffness, no arm numbness/tingling, no low back pain, no shooting leg pain, no leg numbness/tingling, no morning stiffness, no muscle cramps, no myalgias, no fractures, no loss of height, no prior amputations Integumentary: no rash, no pruritis, no sores, no wounds, no jaundice, no boils , no bullae, no lesions, no darkening of skin, no depigmentation, no acne, no dryness, no color changes, no striae, no hirsutism, no foot/leg ulcers, no onychomycosis Neurological: no head injury, no transient paralysis, no weakness, no parathesias, no seizures, no syncope, no tremors, no headaches, no migraines, no convulsions, no change in speech, no change in mentation, no confusion, no sensory deficit, no double vision, no loss of vision, no hearing difficulties, no burning pain, no paralysis Psychiatric: no anxiety, no insomnia, no hypersomnia, no change in libido, no suicidal ideation, no disorientation, no hallucinations, no paranoia, no depression, no hopelessness, no anhedonia, no anxiety attacks, no difficulties concentrating, no confusion, no irritability, no sadness/tearfullness, no mood swings Endocrine: no cold intolerance, no heat intolerance, no polyphagia, no excessive thirst, no polydipsia, no polyuria, no nocturia, no excessive sweating , no increase in ring/shoe/hat size, no proptosis, no deepening of the voice, no thyroid mass, no palpatations, no high blood sugars, no low blood sugars Hematologic/Lymphatic: no easy bruising, no easy bleeding, no lymphadenopathy, no lymphedema, no thrombophilia Allergic/Immunologic: anaphylaxis, angioedema, no urticaria, no allergic rhinitis, no wheezing, no persistent infections Exam - Constitutional Vitals: Temp Pulse Resp BP Pulse Ox 98.1 F 78 14 138/77 99 10/05/16 03:57 10/05/16 04:48 10/05/16 04:48 10/05/16 04:48 10/05/16 04:48 General appearance: Present: mild distress - EENT Eyes: Present: PERRL, EOM intact ENT: hearing intact, clear oral mucosa, other (SWOLLEN TONGUE) - Neck Neck: Present: supple, normal ROM. Absent: rigidity, masses or JVD, carotid bruits - Respiratory Respiratory effort: normal - Cardiovascular Heart Sounds: Present: S1 & S2, gallop. Absent: systolic murmur, diastolic murmur, click - Extremities Extremities: no ischemia, No edema Peripheral Pulses: within normal limits - Abdominal General gastrointestinal: Present: soft, non-tender, non-distended, normal bowel sounds. Absent: tender, distended, rigid, hepatomegaly, splenomegaly Female genitourinary: Present: deferred - Rectal Rectal Exam: deferred - Integumentary Integumentary: Present: clear, warm, dry. Absent: erythema, jaundice, rash, clammy, normal turgor - Musculoskeletal Musculoskeletal: strength equal bilaterally - Psychiatric Psychiatric: appropriate mood/affect - Neurologic Neurologic: CNII-XII intact Assessment and Plan - Patient Problems (1) Anaphylactic reaction Current Visit: No Status: Acute Qualifiers: Encounter type: initial encounter Qualified Code(s): T78.2XXA - Anaphylactic shock, unspecified, initial encounter Plan to address problem: The patient will be admitted to ICU I will be on IV Solu-Medrol 60 mg every 8 hours, patient will also be on IV beta Benadryl 25 mg every 6 hours as needed for allergic reaction. Patient will be on IV normal saline at 125 mL an hour I will be on Tylenol rectally 650 mg every 4 hours as needed for headache and fever, patient will be on IV Zofran 4 mg every 6 hours for nausea vomiting I will have CBC and CMP checked this morning. Patient will have swallowing screen done this morning (2) Angioedema Current Visit: No Status: Acute Qualifiers: Encounter type: initial encounter Qualified Code(s): T78.3XXA - Angioneurotic edema, initial encounter
--- NOTE | 2016-10-05 07:16 | XRay Report ---
LATERAL SOFT TISSUES OF THE NECK: History: Pain, dyspnea. The contour of the upper airway appears within normal limits. The epiglottis is not enlarged. No prevertebral soft tissue swelling is apparent. No mass density or foreign body is evident. IMPRESSION: Unremarkable lateral view of the neck.
--- NOTE | 2016-10-05 07:17 | XRay Report ---
AP CHEST: HISTORY: Dyspnea Compared to 07/27/16. There is a focal airspace opacity posterior to the heart. This probably represents segmental atelectasis although early infiltrate could be considered. The remainder of the lungs are clear. No pleural effusion or pneumothorax. Normal heart and mediastinal structures. IMPRESSION: Left lower lobe opacity as described.
[2016-10-05 07:18] LABS: Basophils % (Auto) 0.3 % (0.0-1.8); Eosinophils % (Auto) 1.8 % (0.0-4.3); Hematocrit 41.8 % (30.3-42.9); Hemoglobin 14.3 gm/dl (10.1-14.3); Mean Corpuscular HGB Conc 34 % (30-34); Mean Corpuscular Hemoglobin 30 pg (28-32); Mean Corpuscular Volume 88 fl (79-97); Platelet Count 373 K/mm3 (140-440); Red Blood Count 4.78 M/mm3 (3.65-5.03); Red Cell Distribution Width 13.5 % (13.2-15.2); White Blood Count 6.5 K/mm3 (4.5-11.0)
--- NOTE | 2016-10-05 07:23 | Admit Criteria Form ---
Admission Criteria Documentation: HEAD AND NECK DISEASE [facility] Clinical Indications for Admission to Inpatient Care ( Place 'X' for any and all applicable criteria): Hospital admission is needed for appropriate care of the patient because of ANY ONE of the following (1)(2): [ ]I. Severe sinusitis as indicated by ANY ONE of the following (6)(13)(21) [ ]a) Suspected BREAK[employer] WORKER infection [ ]b) Bacteremia [ ]c) Hemodynamic instability [ ]d) Outpatient and observation care antibiotic treatment have failed or are not considered appropriate [ ]e) Surgical drainage needed that cannot be performed on an outpatient basis or observation. setting [ ]f) Suspected orbital involvement [ ]II. Acute glaucoma unresponsive to emergency treatment that requires medication or other treatment beyond the scope of observation care (1) [ ]III. Severe eye infection or inflammation (eg, uveitis) which is unresponsive to emergency treatment and requires medication or other treatment beyond the scope of observation care (1)(2)(3)(4) [ ]IV. Severe epistaxis requiring posterior packing (5)(6) [ ]V. Acute bacterial labyrinthitis(6)(7) [ ]. Viral labyrinthitis with symptoms uncontrollable on an outpatient or observation care basis (6)(7) [ ]VII. Severe necrotizing external otitis unresponsive to outpatient and observation care treatment(6) [ ]VIII. Otitis media requiring treatment beyond the scope of outpatient and observation care, as indicated by presence or persistence of ANY ONE of the following(6)(8)(9): [ ]a) Hemodynamic instability [ ]b) Mastoiditis [ ]c) Suspected BREAK[employer] TABLE WORKER infection [ ]d) Bacteremia [ ]e) Surgical drainage needed that cannot be performed as an outpatient. or in an observation setting. [ ]IX. Epiglottitis or supraglottitis(6)(11)(12)(13)(14) [ ]X. Stridor or laryngospasm (unresponsive to emergency management) (6)(11)( 12)(13)(14) [ ]XI. Acute pharyngitis or tonsillitis and ANY ONE of the following (14)(15)( 16): [ ]a) Hemodynamic instability remaining after emergency or observation level care (as appropriate) [ ]b) Surgical drainage needed that cannot be performed in outpatient or observation setting [ ]c) Mediastinitis [ ]d) Thrombophlebitis of internal jugular vein (Lemierre syndrome) [ ]XII. Sialoadenitis and ANY ONE of the following (17) (18) [ ]a) Hemodynamic instability remaining after emergency or observation level care(as appropriate) [ ]b) Surgical drainage needed that cannot be performed in outpatient or observation setting [ ]XIII. Airway blockage or inability to swallow (6)(12)(19)(20) [ ]XIV.Complicated infection indicated by ANY ONE of the following(6)(13)(21)(22 ): [ ]a) Abscess or swelling causing airway difficulty(12) [ ]b) Bacteremia [ ]c) Hemodynamic instability [ ]d) Suspected BREAKER TABLE WORKER infection [ ]e) Outpatient and observation care antibiotic treatment have failed or are not considered appropriate [ ]f) Surgical drainage needed that cannot be performed on an outpatient basis or observation setting [ ]g) Other management need that cannot be performed in outpatient or observation setting: [ ]XV. Severe trauma requiring inpatient medical treatment of eye, head, pharynx, or airway (1)(23)(24)25)186) [ ]XVI. Ischemic optic neuropathy(11) [ X]XVII.Head or Neck Disease condition and ANY ONE of the following: [X ]a) Symptom or finding for which emergency and observation care have failed or are not considered appropriate (Also use General Criteria: Observation Care as appropriate) [ ]b) Presence of ANY ONE of the following: [ ]i) A General Admission Criteria [ ]ii) A Pediatric General Admission Criteria The [facility] content created by [facility] has been revised. The portions of the content which have been revised are identified through the use of italic text or in bold, and [facility] has neither reviewed nor approved the modified material. All other unmodified content is copyright [facility]. Please see references footnoted in the original [facility] edition 2016 Admission Criteria Met: Yes
[2016-10-05 07:31] LABS: Alanine Aminotransferase 16 units/L (7-56); Albumin 4.3 g/dL (3.9-5); Albumin/Globulin Ratio 1.6 %; Alkaline Phosphatase 68 units/L (35-129); Anion Gap 19 mmol/L; BUN/Creatinine Ratio 16.66; Blood Urea Nitrogen 10 mg/dL (7-17); Calcium 9.1 mg/dL (8.4-10.2); Carbon Dioxide 26 mmol/L (22-30); Chloride 103.7 mmol/L (98-107); Glucose 90 mg/dL (65-100); Potassium 4.3 mmol/L (3.6-5.0); Sodium 144 mmol/L (137-145)
[2016-10-05] MEDS: HEPARIN SUB-Q SCH ×2 (10:29→21:18)
--- NOTE | 2016-10-05 11:17 | XRay Report ---
Chest 2 views: Compared to 10/05/16. History: Shortness of breath. Findings: Normal cardiomediastinal silhouette the trachea is midline. No consolidation, pneumothorax or pleural effusion. Impression: No acute cardiopulmonary findings.
[2016-10-05] MEDS: TORADOL IV PRN ×2 (17:08→23:11)
[2016-10-05] MEDS: PEPCID IV SCH (21:18)
[2016-10-06 09:31] VITALS: BP 120/72
[2016-10-06] MEDS: PEPCID IV SCH (09:45)
[2016-10-06] MEDS: HEPARIN SUB-Q SCH (09:45)
--- NOTE | 2016-10-06 12:08 | Event Note ---
she signed out AMA, patient was not seen
--- NOTE | 2016-10-06 14:57 | Event Note ---
Date: 10/06/16 Asked to see patient re: ICU admission for presumed Angioedema Patient downgraded to medical floor and then apparently signed out AMA
== END 2016-10-06 11:21 | disposition left against medical advice (07) | DRG 916 ==
LOC: ED 03:50 → CC1 05:58 → 3A 12:12
PROVIDERS: ADMIT Internal Medicine; ATTEND Internal Medicine
DX: T78.2XXA Anaphylactic shock, unspecified, initial encounter (principal); T78.3XXA Angioneurotic edema, initial encounter; F17.200 Nicotine dependence, unspecified, uncomplicated; Z88.8 Allergy status to other drugs, medicaments and biological substances; Z91.010 Allergy to peanuts; Z88.5 Allergy status to narcotic agent
CPT/HCPCS: 36415; 70360; 71010; 71020; 80053; 84703; 85025; 96361; 96374; 96375; 96376; J0171; J1200; J1644; J1885; J2920; J2930; J7030

== ENCOUNTER 2016-12-24 22:36 | Emergency (ER) | payer SELFPAY ==
[2016-12-24] MEDS ORDERED: PEPCID IV ONE ×2 (23:02→23:05)
[2016-12-24] MEDS ORDERED: BENADRYL IV ONE (23:02)
[2016-12-24] MEDS ORDERED: BENADRYL ONE (23:04)
[2016-12-24] MEDS ORDERED: NACL 0.9% 1000 ML 1,000 ML IV ONE (23:07)
--- NOTE | 2016-12-24 23:12 | Emergency Department Report ---
ED Allergic Reaction HPI - General Chief complaint: Allergic Reaction Stated complaint: ALLERGIC REACTION Time Seen by Provider: 12/24/16 23:02 Source: patient Mode of arrival: Ambulatory Limitations: No Limitations - History of Present Illness Initial Comments: 26 years old female history of angioedema presented today with a swelling over her lips that is started tomorrow several after eating pizza. Patient denied any difficulty swallowing or difficulty breathing. No chest pain no tightness. MD Complaint: allergic reaction -: Sudden Exposure: food Symptoms: facial swelling, lip swelling. denies: difficulty swallowing, difficulty breathing, orolingual swelling, hoarseness, syncopy, dizziness, nausea, vomiting, abdominal pain Treatment Prior to Arrival: none Previous Allergy History: prior ED visit(s), angioedema - Related Data Home Medications Medication Instructions Recorded Confirmed Last Taken Cetirizine HCl [ZyrTEC] 10 mg PO DAILY 10/05/16 10/05/16 Unknown Gabapentin [Neurontin] 100 mg PO PRN PRN 10/05/16 10/05/16 Unknown Ranitidine HCl [Heartburn Relief] 75 mg PO DAILY 10/05/16 10/05/16 Unknown Previous Rx's Medication Instructions Recorded Last Taken Type Famotidine [Pepcid] 40 mg PO QHS #5 tablet 12/25/16 Unknown Rx diphenhydrAMINE [Benadryl CAP] 25 mg PO Q8HR PRN #20 capsule 12/25/16 Unknown Rx predniSONE [Deltasone] 10 mg PO .TAPER #21 tab 12/25/16 Unknown Rx Allergies Allergy/AdvReac Type Severity Reaction Status Date / Time codeine Allergy Nausea Verified 05/29/16 08:29 morphine Allergy Hives Verified 05/29/16 08:29 peanut Allergy Angioedema Verified 10/05/16 03:57 ED Review of Systems ROS: Stated complaint: ALLERGIC REACTION Other details as noted in HPI Comment: All other systems reviewed and negative Constitutional: denies: chills, fever ENT: denies: throat pain Respiratory: denies: cough, orthopnea, shortness of breath, SOB with exertion, SOB at rest Cardiovascular: denies: chest pain, palpitations, dyspnea on exertion Neurological: denies: weakness ED Past Medical Hx - Past Medical History Hx Arthritis: (bronchitis) Hx HIV: No Additional medical history: Fibroids in B breasts, ANGIOEDEMA, ENDOTRACHEAL INTUBATION. BRONCHITIS - Surgical History Past Surgical History?: No - Social History Smoking Status: Current Every Day Smoker Substance Use Type: None - Medications Home Medications: Home Medications Medication Instructions Recorded Confirmed Last Taken Type Cetirizine HCl [ZyrTEC] 10 mg PO DAILY 10/05/16 10/05/16 Unknown History Gabapentin [Neurontin] 100 mg PO PRN PRN 10/05/16 10/05/16 Unknown History Ranitidine HCl [Heartburn Relief] 75 mg PO DAILY 10/05/16 10/05/16 Unknown History Famotidine [Pepcid] 40 mg PO QHS #5 tablet 12/25/16 Unknown Rx diphenhydrAMINE [Benadryl CAP] 25 mg PO Q8HR PRN #20 capsule 12/25/16 Unknown Rx predniSONE [Deltasone] 10 mg PO .TAPER #21 tab 12/25/16 Unknown Rx ED Physical Exam - General Limitations: No Limitations General appearance: alert, in no apparent distress - Head Head exam: Present: atraumatic, normocephalic - Eye Eye exam: Present: normal appearance - ENT ENT exam: Present: other (upper and lower lip is swelling mainly on the right side, tongue is normal with no evidence of swelling) - Neck Neck exam: Present: normal inspection, full ROM. Absent: tenderness, meningismus, lymphadenopathy - Respiratory Respiratory exam: Present: normal lung sounds bilaterally. Absent: respiratory distress, wheezes, rales, rhonchi, stridor, chest wall tenderness, accessory muscle use, decreased breath sounds, prolonged expiratory - Cardiovascular Cardiovascular Exam: Present: regular rate, normal rhythm, normal heart sounds - GI/Abdominal GI/Abdominal exam: Present: soft. Absent: distended, tenderness, guarding, rebound, rigid, normal bowel sounds, diminished bowel sounds, mass, bruit - Extremities Exam Extremities exam: Present: normal inspection - Back Exam Back exam: Present: normal inspection - Neurological Exam Neurological exam: Present: alert, oriented X3, CN II-XII intact, normal gait - Skin Skin exam: Present: warm, intact, normal color. Absent: rash, cyanosis, diaphoretic, erythema, urticaria, vesicles, petechiae, pallor, ecchymosis ED Course Vital Signs 12/24/16 12/24/16 22:40 23:19 Temperature 98.4 F Pulse Rate 94 H 78 Respiratory 18 18 Rate Blood Pressure 130/88 Blood Pressure 121/81 [Right] O2 Sat by Pulse 98 100 Oximetry - Reevaluation(s) Reevaluation #1: 12/25/16 01:11 Patient stated that she is feeling better swelling is coming down still denying any shortness of breath or difficulty swallowing. Patient is clinically stable to go back home on a steroid dose and Benadryl and Pepcid. I strongly advised the patient and family to return to the ER if her symptoms get worse or starts having difficulty breathing or difficulty swallowing. ED Medical Decision Making - Lab Data Result diagrams: 12/24/16 23:19 12/24/16 23:19 Critical care attestation.: If time is entered above; I have spent that time in minutes in the direct care of this critically ill patient, excluding procedure time. ED Disposition Clinical Impression: Allergic reaction Disposition: DC-01 TO HOME OR SELFCARE Is pt being admited?: No Condition: Stable Instructions: Allergies (ED) Prescriptions: Famotidine [Pepcid] 40 mg PO QHS #5 tablet diphenhydrAMINE [Benadryl CAP] 25 mg PO Q8HR PRN #20 capsule PRN Reason: Itching predniSONE [Deltasone] 10 mg PO .TAPER #21 tab
[2016-12-24 23:59] LABS: Basophils % (Auto) 0.1 % (0.0-1.8); Eosinophils % (Auto) 1.2 % (0.0-4.3); Hematocrit 35.9 % (30.3-42.9); Mean Corpuscular HGB Conc 34 % (30-34); Mean Corpuscular Hemoglobin 29 pg (28-32); Mean Corpuscular Volume 88 fl (79-97); Platelet Count 354 K/mm3 (140-440); Red Cell Distribution Width 13.3 % (13.2-15.2); White Blood Count 6.2 K/mm3 (4.5-11.0)
[2016-12-25] MEDS ORDERED: TORADOL ONE (00:16)
[2016-12-25 00:24] LABS: Alanine Aminotransferase 19 units/L (7-56); Albumin 3.5 g/dL (3.9-5); Albumin/Globulin Ratio 1.6 %; Alkaline Phosphatase 56 units/L (35-129); Anion Gap 17 mmol/L; Blood Urea Nitrogen 12 mg/dL (7-17); Calcium 7.9 mg/dL (8.4-10.2); Carbon Dioxide 21 mmol/L (22-30); Glucose 109 mg/dL (65-100); Sodium 139 mmol/L (137-145); Total Protein 5.7 g/dL (6.3-8.2)
[2016-12-25] MEDS ORDERED: TORADOL IV ONE (02:07)
[2016-12-25 02:14] VITALS: BP 128/80
== END 2016-12-25 02:06 | disposition home or self-care (01) ==
LOC: ED 22:36
DX: T78.1XXA Other adverse food reactions, not elsewhere classified, initial encounter (principal); F17.210 Nicotine dependence, cigarettes, uncomplicated; Z91.018 Allergy to other foods; X58.XXXA Exposure to other specified factors, initial encounter; Z88.6 Allergy status to analgesic agent
CPT/HCPCS: 36415; 80053; 85025; 96361; 96374; 96375; 99284; J1200; J1885; J2930; J7030

== ENCOUNTER 2017-01-19 05:13 | Emergency (ER) | payer OTHER ==
[2017-01-19] MEDS ORDERED: PEPCID IV ONE (05:46)
[2017-01-19] MEDS ORDERED: DECADRON IV ONE (05:47)
[2017-01-19] MEDS ORDERED: BENADRYL IV ONE (05:47)
[2017-01-19] MEDS ORDERED: SUBLIMAZE IV ONE (06:18)
--- NOTE | 2017-01-19 07:31 | Emergency Department Report ---
ED General Adult HPI - General Chief complaint: Allergic Reaction Stated complaint: SWOLLEN TONGUE Time Seen by Provider: 01/19/17 06:58 Source: patient Mode of arrival: Ambulatory Limitations: No Limitations - History of Present Illness Initial comments: The patient has a recurrent history of anaphylactoid reaction/angioedema. She has never been evaluated by an associate professor of musicology she says. She states that she was intubated for a week here in July. This does appear to be a bit of an exaggeration but indeed she was intubated in the emergency department and then extubated in the ICU after much shorter time it appears. Subsequent to that in September she had another episode which led to observation in the intensive care unit followed by her signing out AMA within 24 hours. Patient states that she developed tongue swelling sometime during the night. She also complains of pain which seems disproportionate. She hasn't had a fever or sore throat. She has experienced some swelling in the submental area and she does not complain of any shortness of breath. She denies taking any medication [id number] on her own at home whatsoever. She does not know what could've precipitated this event. Location: mouth Radiation: non-radiation Quality: aching (tongue) Consistency: intermittent Improves with: none Worsens with: none Associated Symptoms: denies other symptoms - Related Data Home Medications Medication Instructions Recorded Confirmed Last Taken Cetirizine HCl [ZyrTEC] 10 mg PO DAILY 10/05/16 10/05/16 Unknown Gabapentin [Neurontin] 100 mg PO PRN PRN 10/05/16 10/05/16 Unknown Ranitidine HCl [Heartburn Relief] 75 mg PO DAILY 10/05/16 10/05/16 Unknown Previous Rx's Medication Instructions Recorded Last Taken Type Famotidine [Pepcid] 40 mg PO QHS #5 tablet 12/25/16 Unknown Rx diphenhydrAMINE [Benadryl CAP] 25 mg PO Q8HR PRN #20 capsule 12/25/16 Unknown Rx predniSONE [Deltasone] 10 mg PO .TAPER #21 tab 12/25/16 Unknown Rx Allergies Allergy/AdvReac Type Severity Reaction Status Date / Time codeine Allergy Nausea Verified 05/29/16 08:29 morphine Allergy Hives Verified 05/29/16 08:29 peanut Allergy Angioedema Verified 10/05/16 03:57 ED Review of Systems ROS: Stated complaint: SWOLLEN TONGUE Other details as noted in HPI Constitutional: denies: chills, fever Eyes: denies: eye pain, eye discharge, vision change ENT: as per HPI. denies: ear pain, throat pain Respiratory: denies: cough, shortness of breath, wheezing Cardiovascular: denies: chest pain, palpitations Endocrine: no symptoms reported Gastrointestinal: denies: abdominal pain, nausea, diarrhea Genitourinary: denies: urgency, dysuria, discharge Musculoskeletal: denies: back pain, joint swelling, arthralgia Skin: denies: rash, lesions Neurological: denies: headache, weakness, paresthesias Psychiatric: denies: anxiety, depression Hematological/Lymphatic: denies: easy bleeding, easy bruising ED Past Medical Hx - Past Medical History Previous Medical History?: Yes Hx Arthritis: (bronchitis) Hx HIV: No Additional medical history: Fibroids in B breasts, ANGIOEDEMA, ENDOTRACHEAL INTUBATION. BRONCHITIS - Surgical History Past Surgical History?: No - Social History Smoking Status: Current Every Day Smoker Substance Use Type: Alcohol - Medications Home Medications: Home Medications Medication Instructions Recorded Confirmed Last Taken Type Cetirizine HCl [ZyrTEC] 10 mg PO DAILY 10/05/16 10/05/16 Unknown History Gabapentin [Neurontin] 100 mg PO PRN PRN 10/05/16 10/05/16 Unknown History Ranitidine HCl [Heartburn Relief] 75 mg PO DAILY 10/05/16 10/05/16 Unknown History Famotidine [Pepcid] 40 mg PO QHS #5 tablet 12/25/16 Unknown Rx diphenhydrAMINE [Benadryl CAP] 25 mg PO Q8HR PRN #20 capsule 12/25/16 Unknown Rx predniSONE [Deltasone] 10 mg PO .TAPER #21 tab 12/25/16 Unknown Rx ED Physical Exam - General Limitations: No Limitations General appearance: alert, in no apparent distress - Head Head exam: Present: atraumatic, normocephalic - Eye Eye exam: Present: normal appearance. Absent: scleral icterus - ENT ENT exam: Present: normal orophraynx (except for the tongue. There is just trace to 1+ edema.), mucous membranes moist, other (there is no edema in the posterior pharynx nor in the floor of the mouth.) - Neck Neck exam: Present: normal inspection, other (there is some submental edema). Absent: tenderness, meningismus - Respiratory Respiratory exam: Present: normal lung sounds bilaterally. Absent: respiratory distress - Cardiovascular Cardiovascular Exam: Present: regular rate, normal rhythm. Absent: systolic murmur, diastolic murmur, rubs, gallop - GI/Abdominal GI/Abdominal exam: Present: soft, normal bowel sounds. Absent: distended, tenderness, guarding, rebound, rigid - Extremities Exam Extremities exam: Present: normal inspection - Back Exam Back exam: Present: normal inspection - Neurological Exam Neurological exam: Present: alert, oriented X3, CN II-XII intact. Absent: motor sensory deficit - Psychiatric Psychiatric exam: Present: normal affect, normal mood - Skin Skin exam: Present: warm, dry, intact, normal color. Absent: rash ED Course Vital Signs 01/19/17 01/19/17 01/19/17 05:35 06:10 06:42 Temperature 98.1 F 98.4 F Pulse Rate 89 80 Respiratory 20 16 16 Rate Blood Pressure 125/77 Blood Pressure 111/68 [Left] O2 Sat by Pulse 100 98 Oximetry 01/19/17 08:42 Temperature Pulse Rate 68 Respiratory 12 Rate Blood Pressure Blood Pressure [Left] O2 Sat by Pulse 100 Oximetry - Reevaluation(s) Reevaluation #1: Serial exams were performed. The patient's tongue swelling is totally resolved now. She is requesting discharge. She has no significant residual swelling under her jaw. She is appropriate for discharge. I have gone over the plan for discharge which will rely on [id number] medicine. I do not think continued steroids are necessary at this point. 01/19/17 09:18 ED Medical Decision Making - Lab Data Result diagrams: 01/19/17 07:37 01/19/17 07:37 Critical care attestation.: If time is entered above; I have spent that time in minutes in the direct care of this critically ill patient, excluding procedure time. ED Disposition Clinical Impression: Angioedema Qualifiers: Encounter type: initial encounter Qualified Code(s): T78.3XXA - Angioneurotic edema, initial encounter Angioedema Qualifiers: Encounter type: initial encounter Qualified Code(s): T78.3XXA - Angioneurotic edema, initial encounter Disposition: DC-01 TO HOME OR SELFCARE Is pt being admited?: No Does the pt Need Aspirin: No Condition: Stable Instructions: Angioedema (ED) Additional Instructions: Return any recurrent swelling as necessary. Continue Benadryl 50 mg every 6 hours for the next 48 hours. Continue Pepcid 20 mg twice a day for the next 5 days. These are [id number] medicines and can be obtained at any drugstore. Also it is important if you to establish care at a primary care provider. It is probably the only way that you will get evaluation by an associate professor of musicology. This is recommended. Referrals: PRIMARY CARE, [Primary Care Provider] - 3-5 Days [facility] [Provider Group] - 2-3 Days Time of Disposition: 09:21
[2017-01-19 07:52] LABS: Basophils % (Auto) 0.3 % (0.0-1.8); Eosinophils % (Auto) 0.6 % (0.0-4.3); Hematocrit 39.3 % (30.3-42.9); Hemoglobin 13.7 gm/dl (10.1-14.3); Mean Corpuscular HGB Conc 35 % (30-34); Mean Corpuscular Hemoglobin 30 pg (28-32); Mean Corpuscular Volume 87 fl (79-97); Platelet Count 393 K/mm3 (140-440); Red Blood Count 4.51 M/mm3 (3.65-5.03); Red Cell Distribution Width 13.4 % (13.2-15.2); White Blood Count 7.6 K/mm3 (4.5-11.0)
[2017-01-19 08:13] LABS: Anion Gap 15 mmol/L; BUN/Creatinine Ratio 19; Blood Urea Nitrogen 13 mg/dL (7-17); Calcium 8.7 mg/dL (8.4-10.2); Carbon Dioxide 27 mmol/L (22-30); Chloride 103.9 mmol/L (98-107); Glucose 101 mg/dL (65-100); Potassium 4.4 mmol/L (3.6-5.0); Sodium 141 mmol/L (137-145)
[2017-01-19 10:15] VITALS: BP 116/86
== END 2017-01-19 09:35 | disposition home or self-care (01) ==
LOC: ED 05:13
DX: T78.3XXA Angioneurotic edema, initial encounter (principal); F17.200 Nicotine dependence, unspecified, uncomplicated; Z91.010 Allergy to peanuts; Z88.5 Allergy status to narcotic agent
CPT/HCPCS: 36415; 80048; 85025; 96374; 96375; 99283; J1100; J1200; J3010

== ENCOUNTER 2017-05-05 08:27 | Emergency (ER) | payer SELFPAY ==
[2017-05-05 08:40] VITALS: BP 117/75
[2017-05-05] MEDS ORDERED: PEPCID IV ONE (09:13)
[2017-05-05] MEDS ORDERED: ADRENALINE P/F SUB-Q ONE (09:14)
[2017-05-05] MEDS ORDERED: BENADRYL IV ONE (09:14)
--- NOTE | 2017-05-05 09:28 | Emergency Department Report ---
HPI - General Chief Complaint: Sore Throat Time Seen by Provider: 05/05/17 09:13 - HPI HPI: 26-year-old female presents to the emergency department with a complaint of waking up with a swollen tongue and feeling as if her throat is swelling. The patient was here 2 weeks ago and was intubated secondary to angioedema and/or anaphylaxis. She says that she has been to an supervisor blood for testing in the past and is allergic to peanuts. However she says that she was not exposed to peanuts last time and does not think she has been exposed this time as well. She says that over the past 2 weeks, she appears to wake up with some level of swelling to the tongue and/or throat and it seems to improve throughout the day. She denies any drooling, shortness of breath, fever. ED Past Medical Hx - Past Medical History Hx Arthritis: (bronchitis) Hx HIV: No Additional medical history: Fibroids in B breasts, ANGIOEDEMA, ENDOTRACHEAL INTUBATION. BRONCHITIS - Social History Smoking Status: Current Every Day Smoker Substance Use Type: Alcohol - Medications Home Medications: Home Medications Medication Instructions Recorded Confirmed Last Taken Type Cetirizine HCl [ZyrTEC] 10 mg PO DAILY 10/05/16 10/05/16 Unknown History Gabapentin [Neurontin] 100 mg PO PRN PRN 10/05/16 10/05/16 Unknown History Famotidine [Pepcid] 40 mg PO QHS #5 tablet 12/25/16 Unknown Rx Ranitidine HCl [Heartburn Relief] 75 mg PO BID #10 tablet 05/05/17 Unknown Rx diphenhydrAMINE [Benadryl CAP] 25 mg PO Q8HR PRN #20 capsule 05/05/17 Unknown Rx predniSONE [Deltasone] 10 mg PO .TAPER #21 tab 05/05/17 Unknown Rx ED Review of Systems ROS: Stated complaint: ALLERGIC REACTION Other details as noted in HPI Comment: All other systems reviewed and negative Constitutional: denies: chills, fever Eyes: denies: eye pain, eye discharge, vision change ENT: other (tongue swelling, throat swelling) Respiratory: denies: cough, shortness of breath, wheezing Cardiovascular: denies: chest pain, palpitations Gastrointestinal: denies: abdominal pain, nausea, diarrhea Genitourinary: denies: urgency, dysuria, discharge Musculoskeletal: denies: back pain, joint swelling, arthralgia Skin: denies: rash, lesions Neurological: denies: headache, weakness, paresthesias Physical Exam - Physical Exam Vital Signs: Vital Signs 05/05/17 08:34 Temperature 98.6 F Pulse Rate 88 Respiratory 16 Rate Blood Pressure 117/75 O2 Sat by Pulse 99 Oximetry Physical Exam: GENERAL: The patient is well-developed well-nourished. HENT: Normocephalic. Atraumatic. Patient has moist mucous membranes. Oropharynx is clear. Mallampati 1. There is some mild swelling of the tongue that appears more on the right side. No drooling or trismus. EYES: Extraocular motions are intact. Pupils equal reactive to light bilaterally. NECK: Supple. Trachea is midline. CHEST/LUNGS: Clear to auscultation. There is no respiratory distress noted. HEART/CARDIOVASCULAR: Regular. There is no tachycardia. There is no murmur. ABDOMEN: Abdomen is soft, nontender. Patient has normal bowel sounds. There is no abdominal distention. SKIN: Skin is warm and dry. NEURO: The patient is awake, alert, and oriented. The patient is cooperative. The patient has no focal neurologic deficits. The patient has normal speech. MUSCULOSKELETAL: There is no tenderness or deformity. There is no limitation range of motion. There is no evidence of acute injury. ED Course Vital Signs 05/05/17 08:34 Temperature 98.6 F Pulse Rate 88 Respiratory 16 Rate Blood Pressure 117/75 O2 Sat by Pulse 99 Oximetry ED Medical Decision Making - Lab Data Result diagrams: 05/05/17 Unknown 05/05/17 Unknown - Medical Decision Making The patient apparently has a previous history of angioedema and anaphylaxis that required intubation. Today she had some mild swelling of her tongue. Oropharynx is clear with a Mallampati 1. She was given epinephrine, Pepcid, Solu-Medrol and Benadryl and reevaluated multiple times of multiple hours. Patient says that the swelling has gone down, that she feels back at baseline, and is asking for discharge home. She will go home with a prescription for these medications. She will follow-up with her primary care physician and supervisor blood. She will return to the ER immediately with any return of the symptoms or signs of respiratory distress or any acute distress. - Differential Diagnosis allergic reaction, angioedema, anaphylaxis Critical Care Time: No Critical care attestation.: If time is entered above; I have spent that time in minutes in the direct care of this critically ill patient, excluding procedure time. ED Disposition Clinical Impression: Allergic reaction Qualifiers: Encounter type: initial encounter Qualified Code(s): T78.40XA - Allergy, unspecified, initial encounter Angioedema Qualifiers: Encounter type: initial encounter Qualified Code(s): T78.3XXA - Angioneurotic edema, initial encounter Disposition: - TO HOME OR SELFCARE Is pt being admited?: No Condition: Stable Instructions: Angioedema (ED) Additional Instructions: Please return to the emergency department immediately or call 911 with any recurrence of your tongue or throat swelling or any signs of respiratory distress or any acute process. Prescriptions: diphenhydrAMINE [Benadryl CAP] 25 mg PO Q8HR PRN #20 capsule PRN Reason: Allergic Reaction predniSONE [Deltasone] 10 mg PO .TAPER #21 tab Ranitidine HCl [Heartburn Relief] 75 mg PO BID #10 tablet Referrals: PRIMARY CARE, [Primary Care Provider] - 3-5 Days Time of Disposition: 12:48
[2017-05-05] MEDS ORDERED: ADRENALIN SUB-Q ONE (09:45)
[2017-05-05 10:23] LABS: Basophils % (Auto) 0.2 % (0.0-1.8); Eosinophils # (Auto) 0.1 K/mm3 (0.0-0.4); Eosinophils % (Auto) 1.2 % (0.0-4.3); Hematocrit 41.2 % (30.3-42.9); Hemoglobin 13.8 gm/dl (10.1-14.3); Lymphocytes # (Auto) 1.8 K/mm3 (1.2-5.4); Lymphocytes % (Auto) 35.1 % (13.4-35.0); Mean Corpuscular HGB Conc 33 % (30-34); Mean Corpuscular Hemoglobin 29 pg (28-32); Mean Corpuscular Volume 88 fl (79-97); Monocytes # (Auto) 0.4 K/mm3 (0.0-0.8); Monocytes % (Auto) 8.4 % (0.0-7.3); Platelet Count 364 K/mm3 (140-440); Red Cell Distribution Width 13.3 % (13.2-15.2)
[2017-05-05 10:33] LABS: BUN/Creatinine Ratio 6; Blood Urea Nitrogen 4 mg/dL (7-17); Calcium 8.5 mg/dL (8.4-10.2); Hemolysis Index 7
== END 2017-05-05 13:21 | disposition home or self-care (01) ==
LOC: ED 08:27
DX: T78.3XXA Angioneurotic edema, initial encounter (principal); F17.200 Nicotine dependence, unspecified, uncomplicated; D24.2 Benign neoplasm of left breast; D24.1 Benign neoplasm of right breast; Z88.5 Allergy status to narcotic agent; Z91.018 Allergy to other foods; X58.XXXA Exposure to other specified factors, initial encounter; Y93.89 Activity, other specified; Y99.8 Other external cause status; Y92.89 Other specified places as the place of occurrence of the external cause
CPT/HCPCS: 36415; 80048; 85025; 96372; 96374; 96375; 99284; J0171; J1200; J2930

== ENCOUNTER 2017-05-11 02:50 | Emergency (ER) | payer SELFPAY ==
[2017-05-11 03:13] VITALS: BP 116/81
--- NOTE | 2017-05-11 03:49 | XRay Report ---
FINAL REPORT EXAM: XR CHEST ROUTINE 2V HISTORY: cough TECHNIQUE: PA and lateral views the chest were submitted. FINDINGS: Heart size and mediastinum appear normal. The lungs are clear. Bones soft tissues appear normal. IMPRESSION: Within normal limits.
== END 2017-05-11 07:30 | disposition left against medical advice (07) ==
LOC: ED 02:50
DX: J02.9 Acute pharyngitis, unspecified (principal); R09.89 Other specified symptoms and signs involving the circulatory and respiratory systems; R05 Cough; Z53.21 Procedure and treatment not carried out due to patient leaving prior to being seen by health care provider
CPT/HCPCS: 71046; 87116; 87400; 87430

== ENCOUNTER 2017-12-17 14:32 | Emergency (ER) | payer SELFPAY ==
--- NOTE | 2017-12-17 16:18 | Emergency Department Report ---
ED Lower Extremity HPI - General Chief Complaint: Extremity Injury, Lower Stated Complaint: PAIN IN BOTH FEET/SEVERE COUGH Time Seen by Provider: 12/17/17 16:01 Source: patient Mode of arrival: Ambulatory Limitations: No Limitations - History of Present Illness Initial Comments: 27-year-old female with complaint of pain to bilateral feet. Patient states pain has been ongoing 1 year. States pain is intermittent. Pain is worse in the heels and mid foot. She reports burning sensation to the bottom of the feet. Also reports productive cough with green mucus for the last 3 days. Reports posttussive emesis. Denies fever MD Complaint: other (bilateral foot pain) -: year(s) (1) Severity: moderate Improves With: nothing Worsens With: weight bearing, palpation Context: walking Associated Symptoms: ambulatory. denies: swelling Treatments Prior to Arrival: NSAIDS - Related Data Home Medications Medication Instructions Recorded Confirmed Last Taken Cetirizine HCl [ZyrTEC] 10 mg PO DAILY 10/05/16 10/05/16 Unknown Gabapentin [Neurontin] 100 mg PO PRN PRN 10/05/16 10/05/16 Unknown Previous Rx's Medication Instructions Recorded Last Taken Type Famotidine [Pepcid] 40 mg PO QHS #5 tablet 12/25/16 Unknown Rx Ranitidine HCl [Heartburn Relief] 75 mg PO BID #10 tablet 05/05/17 Unknown Rx diphenhydrAMINE [Benadryl CAP] 25 mg PO Q8HR PRN #20 capsule 05/05/17 Unknown Rx predniSONE [Deltasone] 10 mg PO .TAPER #21 tab 05/05/17 Unknown Rx Benzonatate [Tessalon Perles] 100 mg PO Q8HR PRN #20 capsule 12/17/17 Unknown Rx Naproxen [Naprosyn] 500 mg PO BID #20 tablet 12/17/17 Unknown Rx Allergies Allergy/AdvReac Type Severity Reaction Status Date / Time morphine Allergy Hives Verified 05/29/16 08:29 peanut Allergy Angioedema Verified 10/05/16 03:57 ED Review of Systems ROS: Stated complaint: PAIN IN BOTH FEET/SEVERE COUGH Other details as noted in HPI Comment: All other systems reviewed and negative Constitutional: denies: fever Respiratory: cough. denies: shortness of breath Musculoskeletal: arthralgia ED Past Medical Hx - Past Medical History Previous Medical History?: Yes Hx Arthritis: (bronchitis) Hx HIV: No Additional medical history: Fibroids in breasts, ANGIOEDEMA, ENDOTRACHEAL INTUBATION. BRONCHITIS - Surgical History Past Surgical History?: No - Social History Smoking Status: Current Every Day Smoker Substance Use Type: None - Medications Home Medications: Home Medications Medication Instructions Recorded Confirmed Last Taken Type Cetirizine HCl [ZyrTEC] 10 mg PO DAILY 10/05/16 10/05/16 Unknown History Gabapentin [Neurontin] 100 mg PO PRN PRN 10/05/16 10/05/16 Unknown History Famotidine [Pepcid] 40 mg PO QHS #5 tablet 12/25/16 Unknown Rx Ranitidine HCl [Heartburn Relief] 75 mg PO BID #10 tablet 05/05/17 Unknown Rx diphenhydrAMINE [Benadryl CAP] 25 mg PO Q8HR PRN #20 capsule 05/05/17 Unknown Rx predniSONE [Deltasone] 10 mg PO .TAPER #21 tab 05/05/17 Unknown Rx Benzonatate [Tessalon Perles] 100 mg PO Q8HR PRN #20 capsule 12/17/17 Unknown Rx Naproxen [Naprosyn] 500 mg PO BID #20 tablet 12/17/17 Unknown Rx ED Physical Exam - General Limitations: No Limitations General appearance: alert, in no apparent distress - Head Head exam: Present: atraumatic, normocephalic - Eye Eye exam: Present: normal appearance - ENT ENT exam: Present: normal orophraynx, mucous membranes moist - Neck Neck exam: Present: normal inspection, tenderness. Absent: lymphadenopathy - Respiratory Respiratory exam: Present: normal lung sounds bilaterally. Absent: respiratory distress - Cardiovascular Cardiovascular Exam: Present: regular rate, normal rhythm - GI/Abdominal GI/Abdominal exam: Present: soft. Absent: tenderness - Extremities Exam Extremities exam: Present: normal capillary refill, other (tenderness to plantar aspect of bilateral feet and bilateral calcaneus; no swelling present). Absent: pedal edema, joint swelling - Neurological Exam Neurological exam: Present: alert, oriented X3, motor sensory deficit - Psychiatric Psychiatric exam: Present: normal affect, normal mood - Skin Skin exam: Present: warm, dry, intact, normal color. Absent: rash ED Course Vital Signs 12/17/17 14:45 Temperature 99.2 F Pulse Rate 93 H Respiratory 16 Rate Blood Pressure 124/82 O2 Sat by Pulse 100 Oximetry ED Lower Extremity MDM - Medical Decision Making 27-year-old female with pain to bilateral feet times per year. Differential includes plantar fasciitis and calcaneal spurs. Will give anti-inflammatory appetite she referral. Patient also reports upper respiratory symptoms. Lungs clear and posterior oropharynx normal. We'll write prescription for Tessalon Perles. - Differential Diagnosis plantar fasciitis, calcaneal spur Critical care attestation.: If time is entered above; I have spent that time in minutes in the direct care of this critically ill patient, excluding procedure time. ED Disposition Clinical Impression: Plantar fasciitis, bilateral, Calcaneal spur of both feet, Upper respiratory infection Disposition: TO HOME OR SELFCARE Is pt being admited?: No Condition: Stable Instructions: Plantar Fasciitis (ED) Referrals: RAMIREZ POOL MD [Staff Physician] - 3-5 Days JATINDER GARCIA DPM [Staff Physician] - 3-5 Days Time of Disposition: 16:24
[2017-12-17 17:00] VITALS: BP 122/84
== END 2017-12-17 16:57 | disposition home or self-care (01) ==
LOC: ED 14:32
DX: M72.2 Plantar fascial fibromatosis (principal); M77.32 Calcaneal spur, left foot; M77.31 Calcaneal spur, right foot; J06.9 Acute upper respiratory infection, unspecified; F17.200 Nicotine dependence, unspecified, uncomplicated; Z88.6 Allergy status to analgesic agent; Z91.010 Allergy to peanuts
CPT/HCPCS: 99282

== ENCOUNTER 2018-08-20 10:49 | Emergency (ER) | payer SELFPAY ==
[2018-08-20 10:54] VITALS: BP 125/75
--- NOTE | 2018-08-20 11:27 | Emergency Department Report ---
ED ENT HPI - General Chief complaint: Sore Throat Stated complaint: IRRITATED THROAT/DRY COUGH Time Seen by Provider: 08/20/18 11:22 Source: patient Mode of arrival: Ambulatory Limitations: No Limitations - History of Present Illness Initial comments: This is a 27-year-old female nontoxic well in appearance with no signs of distress presents to the ED with complaint of sore throat. Patient denies any drooling or hoarseness. Patient stated that sore throat makes her have a dry cough due to the irritation and trying to clear throat. Denies any fever, chills, headache, nausea, vomiting, chest pain or SOB. Denies any other complaints. Patient stated allergies to morphine. MD complaint: sore throat -: days(s) Location: throat Severity: mild Severity scale (0 -10): 8 Quality: aching Consistency: constant Improves with: none Worsens with: swallowing Associated Symptoms: pain with swallowing, sore throat. denies: fever, cough, gum swelling, toothache, tinnitus, hearing loss, discharge from ear, rhinorrhea - Related Data Previous Rx's Medication Instructions Recorded Last Taken Type ALBUTEROL Inhaler (OR & NICU) 2 puff IH QID PRN #1 inhalation 01/27/18 Unknown Rx [ProAir HFA Inhaler] Amoxicillin 500 mg PO BID #20 capsule 01/27/18 Unknown Rx Fluticasone [Flonase] 1 spray NS QDAY #1 bottle 01/27/18 Unknown Rx predniSONE [Deltasone] 50 mg PO QDAY #5 tab 01/27/18 Unknown Rx Amoxicillin [Amoxicillin TAB] 875 mg PO BID #20 tablet 08/20/18 Unknown Rx Ibuprofen [Motrin] 600 mg PO Q8H PRN #20 tablet 08/20/18 Unknown Rx Nystas/Diphen/Xyl Visc/Mylanta 15 ml MM Q4H PRN 5 Days ml 08/20/18 Unknown Rx [Magic Mouthwash] Allergies Allergy/AdvReac Type Severity Reaction Status Date / Time morphine Allergy Hives Verified 01/27/18 08:31 peanut Allergy Angioedema Verified 01/27/18 08:31 ED Dental HPI - General Chief complaint: Sore Throat Stated complaint: IRRITATED THROAT/DRY COUGH Time Seen by Provider: 08/20/18 11:22 Source: patient Mode of arrival: Ambulatory Limitations: No Limitations - Related Data Previous Rx's Medication Instructions Recorded Last Taken Type ALBUTEROL Inhaler (OR & NICU) 2 puff IH QID PRN #1 inhalation 01/27/18 Unknown Rx [ProAir HFA Inhaler] Amoxicillin 500 mg PO BID #20 capsule 01/27/18 Unknown Rx Fluticasone [Flonase] 1 spray NS QDAY #1 bottle 01/27/18 Unknown Rx predniSONE [Deltasone] 50 mg PO QDAY #5 tab 01/27/18 Unknown Rx Amoxicillin [Amoxicillin TAB] 875 mg PO BID #20 tablet 08/20/18 Unknown Rx Ibuprofen [Motrin] 600 mg PO Q8H PRN #20 tablet 08/20/18 Unknown Rx Nystas/Diphen/Xyl Visc/Mylanta 15 ml MM Q4H PRN 5 Days ml 08/20/18 Unknown Rx [Magic Mouthwash] Allergies Allergy/AdvReac Type Severity Reaction Status Date / Time morphine Allergy Hives Verified 01/27/18 08:31 peanut Allergy Angioedema Verified 01/27/18 08:31 ED Review of Systems ROS: Stated complaint: IRRITATED THROAT/DRY COUGH Other details as noted in HPI Constitutional: denies: chills, fever Eyes: denies: eye pain, eye discharge, vision change ENT: throat pain. denies: ear pain Respiratory: denies: cough, shortness of breath, wheezing Cardiovascular: denies: chest pain, palpitations Endocrine: no symptoms reported Gastrointestinal: denies: abdominal pain, nausea, diarrhea Genitourinary: denies: urgency, dysuria, discharge Musculoskeletal: denies: back pain, joint swelling, arthralgia Skin: denies: rash, lesions Neurological: denies: headache, weakness, paresthesias Psychiatric: denies: anxiety, depression Hematological/Lymphatic: denies: easy bleeding, easy bruising ED Past Medical Hx - Past Medical History Previous Medical History?: No Hx Arthritis: (bronchitis) Hx HIV: No Additional medical history: Fibroids in breasts, ANGIOEDEMA, ENDOTRACHEAL INTUBATION. BRONCHITIS - Surgical History Past Surgical History?: No - Social History Smoking Status: Never Smoker Substance Use Type: Alcohol - Medications Home Medications: Home Medications Medication Instructions Recorded Confirmed Last Taken Type ALBUTEROL Inhaler (OR & NICU) 2 puff IH QID PRN #1 inhalation 01/27/18 Unknown Rx [ProAir HFA Inhaler] Amoxicillin 500 mg PO BID #20 capsule 01/27/18 Unknown Rx Fluticasone [Flonase] 1 spray NS QDAY #1 bottle 01/27/18 Unknown Rx predniSONE [Deltasone] 50 mg PO QDAY #5 tab 01/27/18 Unknown Rx Amoxicillin [Amoxicillin TAB] 875 mg PO BID #20 tablet 08/20/18 Unknown Rx Ibuprofen [Motrin] 600 mg PO Q8H PRN #20 tablet 08/20/18 Unknown Rx Nystas/Diphen/Xyl Visc/Mylanta 15 ml MM Q4H PRN 5 Days ml 08/20/18 Unknown Rx [Magic Mouthwash] ED Physical Exam - General Limitations: No Limitations General appearance: alert, in no apparent distress - Head Head exam: Present: atraumatic, normocephalic - Expanded ENT Exam Expanded Ear exam: Present: normal external inspection Mouth exam: Present: normal external inspection. Absent: drooling, trismus, muffled voice Teeth exam: Present: normal inspection Throat exam: Positive: tonsillar erythema, other (uvula midline.). Negative: tonsillomegaly, tonsillar exudate, R peritonsillar mass, L peritonsillar mass - Neck Neck exam: Present: normal inspection, full ROM. Absent: tenderness, meningismus, lymphadenopathy - Respiratory Respiratory exam: Present: normal lung sounds bilaterally. Absent: respiratory distress, wheezes, rales, rhonchi, stridor, chest wall tenderness, accessory muscle use, decreased breath sounds, prolonged expiratory - Cardiovascular Cardiovascular Exam: Present: regular rate, normal rhythm, normal heart sounds. Absent: irregular rhythm, systolic murmur, diastolic murmur, rubs, gallop - Extremities Exam Extremities exam: Present: normal inspection, full ROM - Back Exam Back exam: Present: normal inspection, full ROM - Neurological Exam Neurological exam: Present: alert, oriented X3 - Psychiatric Psychiatric exam: Present: normal affect, normal mood - Skin Skin exam: Present: warm, dry, intact, normal color. Absent: rash ED Course Vital Signs 08/20/18 10:53 Temperature 98.1 F Pulse Rate 91 H Respiratory 16 Rate Blood Pressure 125/75 O2 Sat by Pulse 98 Oximetry - Reevaluation(s) Reevaluation #1: 08/20/18 11:25 Patient is speaking in full sentences with no signs of distress noted. ED Medical Decision Making - Medical Decision Making Patient was instructed to Follow-up with a primary care doctor in 3-5 days or if symptoms worsen and continue return to emergency room as soon as possible. At time of discharge, the patient does not seem toxic or ill in appearance. No acute signs of distress noted. Patient agrees to discharge treatment plan of care. No further questions noted by the patient. Critical care attestation.: If time is entered above; I have spent that time in minutes in the direct care of this critically ill patient, excluding procedure time. ED Disposition Clinical Impression: Pharyngitis Qualifiers: Pharyngitis/tonsillitis etiology: unspecified etiology Qualified Code(s): J02.9 - Acute pharyngitis, unspecified Disposition: TO HOME OR SELFCARE Is pt being admited?: No Does the pt Need Aspirin: No Condition: Stable Instructions: Pharyngitis (ED) Additional Instructions: Follow-up with a primary care doctor in 3-5 days or if symptoms worsen and continue return to emergency room as soon as possible. Prescriptions: Amoxicillin [Amoxicillin TAB] 875 mg PO BID #20 tablet Nystas/Diphen/Xyl Visc/Mylanta [Magic Mouthwash] 15 ml MM Q4H PRN 5 Days ml PRN Reason: Sore Throat Ibuprofen [Motrin] 600 mg PO Q8H PRN #20 tablet PRN Reason: Pain Referrals: PRIMARY CARE, [Primary Care Provider] - 3-5 Days HOLLIE GRECO MD [Staff Physician] - 3-5 Days [facility] [Outside] - 3-5 Days [facility] [Outside] - 3-5 Days Forms: Work/School Release Form(ED)
== END 2018-08-20 11:31 | disposition home or self-care (01) ==
LOC: ED 10:49
DX: J02.9 Acute pharyngitis, unspecified (principal); Z88.5 Allergy status to narcotic agent; Z91.010 Allergy to peanuts
CPT/HCPCS: 99281

== ENCOUNTER 2019-12-03 19:40 | Emergency (ER) | payer SELFPAY ==
[2019-12-03 20:03] VITALS: BP 136/77
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
[2019-12-04] MEDS ORDERED: traMADol 50 MG TAB PO ONE (01:44)
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
== END 2019-12-04 03:00 | disposition home or self-care (01) ==
LOC: ED 19:40
DX: M54.2 Cervicalgia (principal); Z79.1 Long term (current) use of non-steroidal anti-inflammatories (NSAID); Z79.2 Long term (current) use of antibiotics; Z88.6 Allergy status to analgesic agent; Z91.010 Allergy to peanuts; V49.59XA Passenger injured in collision with other motor vehicles in traffic accident, initial encounter; Y93.89 Activity, other specified; Y92.488 Other paved roadways as the place of occurrence of the external cause; Y99.8 Other external cause status
CPT/HCPCS: 72040; 72070; 99283